=== PATIENT | male | born 1960 | race Caucasian/White ===

== ENCOUNTER 2017-11-13 02:17 | Emergency (ER) | payer MEDICARE, SELFPAY ==
[2017-11-13 02:22] VITALS: BP 118/84; PULSE 110; RESP 18; TEMP 36.7; O2SAT 94; BMI 23.7
--- NOTE | 2017-11-13 02:33 | XR_ITS ---
XR chest 2V HISTORY: ITS.REASON: shortness of air ORDERING PHYSICIAN: Xavier Tee MD PATIENT AGE: 57 years COMPARISON: 03/15/2013 FINDINGS: The cardiomediastinal silhouette and pulmonary vascularity are within normal limits. No lobar consolidation or collapse. There is a new 12 x 9 mm nodule in the right upper lobe overlying the second interspace. The remaining lungs are clear. No acute bony anomalies. Please present over the lower cervical spine IMPRESSION: New 12 mm right upper lobe nodule. Suggest CT scan of the chest for further evaluation.
[2017-11-13 02:53] LABS: POC Glucose,Bedside 241 mg/dL (70-110)
[2017-11-13 02:55] LABS: Basophils % 0.4 % (0.1-2.0); Eosinophils # 0.2 K/mm3 (0.0-0.4); Eosinophils % 1.6 % (0.1-12.0); Hematocrit 50.1 % (42.0-52.0); Hemoglobin 17.1 g/dL (14.1-18.0); Lymphocytes # 2.5 K/mm3 (0.7-4.5); Lymphocytes % 24.1 K/mm3 (10-50); Mean Corpuscular HGB Conc 34.2 g/dL (31.8-35.4); Mean Corpuscular Hemoglobin 31.9 pg (27.0-31.2); Mean Corpuscular Volume 93.4 fl (80-94); Mean Platelet Volume 9.3 fl (7.4-10.4); Monocytes # 0.6 K/mm3 (0.1-1.0); Monocytes % 5.9 % (1.7-9.3); Neutrophils # 7.2 K/mm3 (1.8-7.8); Platelet Count 123 K/mm3 (142-424); Red Blood Count 5.36 M/mm3 (4.60-6.20); Red Cell Distribution Width 14.6 % (11.5-17.5); White Blood Count 10.5 K/mm3 (4.8-10.8)
[2017-11-13 03:03] LABS: INR 1.14 (0.9-1.1); Prothrombin Time 12.3 seconds (9.4-11.8); Strep Scrn Group A (Rapid) Negative (Negative)
[2017-11-13 03:20] LABS: Alanine Aminotransferase 38 U/L (12-78); Albumin Level 3.8 gm/dL (3.4-5.0); Alkaline Phosphatase 156 U/L (46-116); Anion Gap 15.6 mEq/L (5-15); Aspartate Amino Transferase 11 U/L (15-37); Bilirubin,Total 0.7 mg/dL (0.2-1.0); Blood Urea Nitrogen 14 mg/dL (7-18); Calcium 9.1 mg/dL (8.5-10.1); Carbon Dioxide 24 mmol/L (21.0-32.0); Chloride 99 mmol/L (98-107); Creatine Kinase 56 U/L (39-308); Creatinine Clearance Estimated 113 mL/min (0-300); Creatinine,Serum 0.84 mg/dL (0.70-1.30); Estimated Glomerular Filt Rate 95 ml/min (>60); GFR (African American) 114 ML/MIN (>60); Glucose 247 mg/dL (74-106); Potassium 3.6 mmoL/L (3.5-5.1); Sodium 135 mmol/L (136-145); Total Protein,Serum 7.8 gm/dL (6.4-8.2); Troponin I < 0.02 ng/ml (0.00-0.06)
[2017-11-13 03:32] LABS: CKMB Relative Index 0.9 U/L (0-4.0); Creatine Kinase MB < 0.5 mg/ml (0.0-3.6)
[2017-11-13 03:47] VITALS: BP 131/80; PULSE 87; RESP 18; TEMP 36.7; O2SAT 93
--- NOTE | 2017-11-13 04:01 | HMH.EDSOB ---
ED Disposition Clinical Impression: Bronchitis Pharyngitis Qualifiers: Pharyngitis/tonsillitis etiology: unspecified etiology Qualified Code(s): J02.9 - Acute pharyngitis, unspecified Disposition: Home, Self-Care Condition on Discharge: Good Instructions: DI for Pharyngitis/Tonsillopharyngitis -- Adult Additional Instructions: see pcp for follow up Prescriptions: cephALEXin [Keflex 500mg Cap] 500 mg PO TID #21 cap Referrals: Jessika Frederick APRN [Primary Care Provider] - - Critical Care Critical Care Time: No Attestation: On 11/13/17, the high probability of a clinically significant, sudden or life threatening deterioration of the following system(s) required my full and direct attention, intervention and personal management. The time I documented below is in addition to time spent performing reported procedures but includes the following listed in this critical care notation. Medical Decision Making - Medical Records Medical records reviewed: Yes: I reviewed the patient's medical records. Vital Signs: 11/13/17 02:22 11/13/17 03:47 11/13/17 05:33 Temperature 98.0 F 98.1 F Temperature Source Oral Oral Pulse Rate [Right Radial] 110 H 87 83 Respiratory Rate 18 18 16 Blood Pressure [Right Arm] 118/84 131/80 108/66 Blood Pressure Mean [Right Arm] 95 97 80 Blood Pressure Source [Right Arm] Automatic Cuff Automatic Cuff Automatic Cuff Blood Pressure Position [Right Arm] Sitting Sitting Supine 02 Sat by Pulse Oximetry 94 L 93 L 91 L Oxygen Delivery Method Room Air Room Air Room Air - Lab Data Lab results reviewed: Yes: I reviewed the patient's lab results. Lab Results 11/13/17 02:30: WBC 10.5, RBC 5.36, Hgb 17.1, Hct 50.1, MCV 93.4, MCH 31.9 H, MCHC 34.2, RDW 14.6, Plt Count 123 L, MPV 9.3, Neut % (Auto) 68.0, Lymph % (Auto) 24.1, [place] % (Auto) 5.9, Eos % (Auto) 1.6, Baso % (Auto) 0.4, Neut # (Auto) 7.2, Lymph # (Auto) 2.5, [place] # (Auto) 0.6, Eos # (Auto) 0.2, Baso # (Auto) 0.0 11/13/17 02:30: PT 12.3 H, INR 1.14 H 11/13/17 02:30: Sodium 135 L, Potassium 3.6, Chloride 99, Carbon Dioxide 24, Anion Gap 15.6 H, BUN 14, Creatinine 0.84, Estimated Creat Clear 113, Estimated GFR 95, Est GFR ( Amer) 114, Glucose 247 H, Calcium 9.1, Total Bilirubin 0.7, AST 11 L, ALT 38, Alkaline Phosphatase 156 H, Total Creatine Kinase 56, CK-MB (CK-2) < 0.5, CK-MB (CK-2) Rel Index 0.9, Troponin I < 0.02, Total Protein 7.8, Albumin 3.8, Globulin 4.0 H, Albumin/Globulin Ratio 1.0 L 11/13/17 02:30: Group A Strep Rapid Negative 11/13/17 02:30: Influenza Type A Ag Negative, Influenza Type B Ag Negative 11/13/17 02:30: Lactic Acid 1.0 11/13/17 02:45: POC Glucose 241 Result diagrams: 11/13/17 02:30 11/13/17 02:30 Orders (Tests/Meds): ED MEDICATIONS Generic Name Dose Route Start Last Admin Trade Name Freq PRN Reason Stop Dose Admin Azithromycin 500 mg/ Sodium 250 mls @ 250 mls/hr 11/13/17 04:15 11/13/17 04:39 Chloride IV 11/27/17 04:14 250 mls/hr Q24H KENDY Administration Protocol Ceftriaxone Sodium 1 gm/ 50 mls @ 100 mls/hr 11/13/17 04:15 11/13/17 04:40 Sodium Chloride IV 11/27/17 04:14 100 mls/hr Q24H KENDY Administration Discontinued Medications Generic Name Dose Route Start Last Admin Trade Name Freq PRN Reason Stop Dose Admin Sodium Chloride 500 mls @ 999 mls/hr 11/13/17 03:30 11/13/17 03:20 Sod Chlor 0.9% 1000ml Bag IV 11/13/17 04:00 999 mls/hr .Q31M KENDY Administration Ketorolac Tromethamine 30 mg 11/13/17 04:12 11/13/17 04:39 Toradol 30mg/Ml Vial IV 11/13/17 04:13 30 mg ONCE ONE Administration Methylprednisolone Sodium Succinate 125 mg 11/13/17 04:13 11/13/17 04:39 Solu-Medrol 125mg/2ml Vial IV 11/13/17 04:14 125 mg ONCE ONE Administration ORDERS Category Date Time Status CT angio chest Stat Cat Scan 11/13/17 05:35 Stop Req Blood Culture Stat Micro 11/13/17 02:30 Received Sputum Culture & Gram Stain Stat Micro 11/13/17 02:48 Re
--- NOTE | 2017-11-13 04:10 | ED_ITS ---
ED Disposition Clinical Impression: Bronchitis Pharyngitis Qualifiers: Pharyngitis/tonsillitis etiology: unspecified etiology Qualified Code(s): J02.9 - Acute pharyngitis, unspecified Disposition: Home, Self-Care Condition on Discharge: Good Instructions: DI for Pharyngitis/Tonsillopharyngitis -- Adult Additional Instructions: see pcp for follow up Prescriptions: cephALEXin [Keflex 500mg Cap] 500 mg PO TID #21 cap Referrals: Jessika Frederick APRN [Primary Care Provider] - - Critical Care Critical Care Time: No Attestation: On 11/13/17, the high probability of a clinically significant, sudden or life threatening deterioration of the following system(s) required my full and direct attention, intervention and personal management. The time I documented below is in addition to time spent performing reported procedures but includes the following listed in this critical care notation. Medical Decision Making - Medical Records Medical records reviewed: Yes: I reviewed the patient's medical records. Vital Signs: 11/13/17 02:22 11/13/17 03:47 11/13/17 05:33 Temperature 98.0 F 98.1 F Temperature Source Oral Oral Pulse Rate [Right Radial] 110 H 87 83 Respiratory Rate 18 18 16 Blood Pressure [Right Arm] 118/84 131/80 108/66 Blood Pressure Mean [Right Arm] 95 97 80 Blood Pressure Source [Right Arm] Automatic Cuff Automatic Cuff Automatic Cuff Blood Pressure Position [Right Arm] Sitting Sitting Supine 02 Sat by Pulse Oximetry 94 L 93 L 91 L Oxygen Delivery Method Room Air Room Air Room Air - Lab Data Lab results reviewed: Yes: I reviewed the patient's lab results. Lab Results 11/13/17 02:30: WBC 10.5, RBC 5.36, Hgb 17.1, Hct 50.1, MCV 93.4, MCH 31.9 H, MCHC 34.2, RDW 14.6, Plt Count 123 L, MPV 9.3, Neut % (Auto) 68.0, Lymph % (Auto ) 24.1, [place] % (Auto) 5.9, Eos % (Auto) 1.6, Baso % (Auto) 0.4, Neut # (Auto) 7.2, Lymph # (Auto) 2.5, [place] # (Auto) 0.6, Eos # (Auto) 0.2, Baso # (Auto) 0.0 11/13/17 02:30: PT 12.3 H, INR 1.14 H 11/13/17 02:30: Sodium 135 L, Potassium 3.6, Chloride 99, Carbon Dioxide 24, Anion Gap 15.6 H, BUN 14, Creatinine 0.84, Estimated Creat Clear 113, Estimated GFR 95, Est GFR ( Amer) 114, Glucose 247 H, Calcium 9.1, Total Bilirubin 0.7, AST 11 L, ALT 38, Alkaline Phosphatase 156 H, Total Creatine Kinase 56, CK- MB (CK-2) < 0.5, CK-MB (CK-2) Rel Index 0.9, Troponin I < 0.02, Total Protein 7.8, Albumin 3.8, Globulin 4.0 H, Albumin/Globulin Ratio 1.0 L 11/13/17 02:30: Group A Strep Rapid Negative 11/13/17 02:30: Influenza Type A Ag Negative, Influenza Type B Ag Negative 11/13/17 02:30: Lactic Acid 1.0 11/13/17 02:45: POC Glucose 241 Result diagrams: 11/13/17 02:30 11/13/17 02:30 Orders (Tests/Meds): ED MEDICATIONS Generic Name Dose Route Start Last Admin Trade Name Freq PRN Reason Stop Dose Admin Azithromycin 500 mg/ Sodium 250 mls @ 250 mls/hr 11/13/17 04:15 11/13/17 04: 39 Chloride IV 11/27/17 04:14 250 mls/hr Q24H KENDY Administration Protocol Ceftriaxone Sodium 1 gm/ 50 mls @ 100 mls/hr 11/13/17 04:15 11/13/17 04:40 Sodium Chloride IV 11/27/17 04:14 100 mls/hr Q24H KENDY Administration Discontinued Medications Generic Name Dose Route Start Last Admin Trade Name Freq PRN Reason Stop Dose Admin Sodium Chloride 500 mls @ 999 mls/hr 11/13/17 03:30 11/13/17 03:20
[2017-11-13 05:33] VITALS: BP 108/66; PULSE 83; RESP 16; O2SAT 91
[2017-11-13 07:06] VITALS: BP 116/80; PULSE 70; RESP 18; TEMP 36.7; O2SAT 92
== END 2017-11-13 07:13 | disposition home or self-care (01) ==
PROVIDERS: Emergency Provider Emergency Medicine; Family Provider Nurse Practitioner; PCP Nurse Practitioner
DX: J40 Bronchitis, not specified as acute or chronic (principal); J02.9 Acute pharyngitis, unspecified; R06.02 Shortness of breath; R68.89 Other general symptoms and signs; E11.9 Type 2 diabetes mellitus without complications; Z79.4 Long term (current) use of insulin; Z79.899 Other long term (current) drug therapy; Z72.0 Tobacco use
CPT/HCPCS: 71046; 80053; 82550; 82553; 82962; 83605; 84484; 85025; 85610; 87040; 87070; 87077; 87184; 87205; 87275; 87276; 87430; 93005; 96365; 96367; 96375; 99283; J0456

== ENCOUNTER → 2017-11-26 13:50 | Outpatient (CLI) | payer MEDICARE, SELFPAY ==
[2017-11-26 14:09] LABS: Blood Urea Nitrogen 11 mg/dL (7-18); Estimated Glomerular Filt Rate 100 ml/min (>60); GFR (African American) 121 ML/MIN (>60)
--- NOTE | 2017-11-26 14:13 | CT_ITS ---
CT chest wo/w con HISTORY: Follow-up lung nodule, solitary pulmonary nodule chest x-ray ITS.REASON: RIGHT LUNG NODULE ORDERING PHYSICIAN: Jessika Frederick PATIENT AGE: 57 years TECHNIQUE: Axial images obtained. Sagittal and coronal reformatted images are also generated and reviewed. CONTRAST: 75ml Isovue 370 I.V. COMPARISON: Chest x-ray of 11/13/[address] scan of 01/02/2015 FINDINGS: Scattered small lymph nodes are present in the axilla and mediastinum which are not significantly changed. No dominant adenopathy. No mediastinal or hilar mass. No central obstructing lesions. There are moderate centrilobular emphysematous changes with scattered areas of pulmonary fibrosis.. There is a new 13 x 10 mm noncalcified nodule within the posterior segment of the right upper lobe. The margins are well-circumscribed. No cavitation or spiculation. No significant enhancement. Just posterior medial to this nodule is an additional opacity measuring 5 mm. This however may be due to a looping vessel. Inferior to the main nodule, there is an additional nodule measuring 5 mm which is also developed in the interval. The left lung is clear. No effusions or infiltrates. Upper abdominal images show splenomegaly at 14 cm. No bony destructive process evident. IMPRESSION: 1. There are at least 2 new right upper lobe nodules the largest at 13 x 10 mm corresponding to the radiographic abnormality. The nodule is well-circumscribed but noncalcified. Neoplasm is considered. An inflammatory or infectious nodule such as a granuloma is also a consideration. Consider PET/CT for further evaluation. This nodule is not amenable for safe percutaneous CT directed biopsy 2. Centrilobular emphysema
--- NOTE | 2017-11-26 14:27 | HMH.ITSHM ---
GABAPENTIN,TRAMADOLO TRAZADONE,ATORVASTATIN AMLODIPINE,COLCRYS,WARFARIN HUMALOG,TOUJEO
== END ==
PROVIDERS: Family Provider Nurse Practitioner; PCP Nurse Practitioner; Visit Provider Nurse Practitioner
DX: R91.1 Solitary pulmonary nodule (principal)
CPT/HCPCS: 36415; 71270; 82565; 84520; Q9967

== ENCOUNTER → 2018-06-25 15:45 | Outpatient (CLI) | payer BC, MEDICARE, SELFPAY ==
--- NOTE | 2018-06-25 15:47 | MR_ITS ---
MR hip RT wo con HISTORY: Right hip pain. ITS.REASON: TROCHANTERIC BURSITIS, RIGHT HIP ORDERING PHYSICIAN: Jessika Frederick PATIENT AGE: 57 years COMPARISON: 11/11/2016 TECHNIQUE: Routine multiplanar multiecho sequences performed without contrast. FINDINGS: No fracture or dislocation. No evidence of avascular process. No bony destructive process. Small amount fluid noted within the right hip joint slightly greater than the normal left side. Once again there is noted small area of increased T2 signal along the greater trochanter between the gluteus sahara and medius muscle as previously described. This is of questionable clinical significance but could be seen with trochanteric bursitis. No other significant anomalies are evident. IMPRESSION: 1. Small amount of fluid in the right hip joint slightly more prominent than on the left side. 2. Possible right-sided trochanteric bursitis not significantly changed
== END ==
PROVIDERS: Family Provider Nurse Practitioner; PCP Nurse Practitioner; Visit Provider Nurse Practitioner
DX: M70.61 Trochanteric bursitis, right hip (principal)
CPT/HCPCS: 73721

== ENCOUNTER → 2019-04-25 10:31 | Outpatient (CLI) | payer BC, MEDICARE, SELFPAY ==
--- NOTE | 2019-04-25 10:41 | CT_ITS ---
CT angio chest HISTORY: Shortness of breath, chest pain, recent surgery ITS.REASON: SOB, S/P SURGERY 2-3 WEEKS ,STENT IN LEGS ORDERING PHYSICIAN: Jessika Frederick APRN PATIENT AGE: 58 years COMPARISON: 11/26/2017 TECHNIQUE: Contrast Used:70ml Optiray 350 Axial images were obtained. Sagittal, and coronal reformatted images are also generated and reviewed. All CT scans at the facility use one or more dose reduction, viz: automated exposure control, ma/kV adjustment per patient size (including targeted exams where dose is matched to indication, i.e. head), or iterative reconstruction technique. FINDINGS: There is mild diffuse thickening of the esophagus throughout its length nonspecific and millimeters due to nondistention. Esophagitis is also a consideration. No mediastinal or hilar mass. No evidence of aortic aneurysm or dissection. Coronary artery calcifications are present. There is minimal thickening of the pericardium anteriorly No evidence of central pulmonary embolus. The peripheral pulmonary arteries are not well opacified. Centrilobular emphysema. A 10 mm noncalcified nodule present in the right upper lobe posteriorly unchanged. No new nodules are evident. No effusions or infiltrates. Bone plate is present in the lower cervical spine anteriorly. No acute bony findings. Upper abdominal images show splenomegaly IMPRESSION: 1. No evidence of pulmonary embolus. 2. Coronary artery calcifications, centrilobular emphysema, no change right upper lobe nodule 3. Splenomegaly
[2019-04-25 10:56] LABS: Blood Urea Nitrogen 14 mg/dL (7-18); Creatinine,Serum 1.45 mg/dL (0.70-1.30); Estimated Glomerular Filt Rate 50 ml/min (>60); GFR (African American) 61 ML/MIN (>60)
--- NOTE | 2019-04-25 13:11 | HMH.ITSHM ---
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 [] gabapentin trazodone atorvastatin tramadol
== END ==
PROVIDERS: PCP Nurse Practitioner; Visit Provider Nurse Practitioner
DX: Z09 Encounter for follow-up examination after completed treatment for conditions other than malignant neoplasm (principal); R06.02 Shortness of breath
CPT/HCPCS: 36415; 71275; 82565; 84520; Q9967

== ENCOUNTER → 2019-05-04 13:33 | Outpatient (CLI) | payer BC, MEDICARE, SELFPAY ==
[2019-05-04 14:30] LABS: Basophils % 0.6 % (0.1-2.0); Eosinophils # 0.1 K/mm3 (0.0-0.4); Eosinophils % 1.8 % (0.1-12.0); Hematocrit 39.2 % (42.0-52.0); Hemoglobin 12.5 g/dL (14.1-18.0); Lymphocytes # 1.5 K/mm3 (0.7-4.5); Lymphocytes % 22.9 % (10-50); Mean Corpuscular HGB Conc 31.8 g/dL (31.8-35.4); Mean Corpuscular Hemoglobin 29.3 pg (27.0-31.2); Mean Corpuscular Volume 92.2 fl (80-94); Mean Platelet Volume 8.2 fl (7.4-10.4); Monocytes # 0.3 K/mm3 (0.1-1.0); Monocytes % 4.3 % (1.7-9.3); Neutrophils # 4.7 K/mm3 (1.8-7.8); Neutrophils % 70.4 % (37.0-80.0); Platelet Count 252 K/mm3 (142-424); Red Blood Count 4.26 M/mm3 (4.60-6.20); Red Cell Distribution Width 17.1 % (11.5-17.5); White Blood Count 6.6 K/mm3 (4.8-10.8)
[2019-05-04 15:23] LABS: Hemoglobin A1C 6.2 % (0.0-7.0)
[2019-05-04 15:41] LABS: Alanine Aminotransferase 56 U/L (12-78); Albumin Level 3.6 gm/dL (3.4-5.0); Albumin/Globulin Ratio 0.8 (1.1-1.8); Alkaline Phosphatase 183 U/L (46-116); Anion Gap 15.1 mEq/L (5-15); Aspartate Amino Transferase 22 U/L (15-37); Bilirubin,Total 0.7 mg/dL (0.2-1.0); Blood Urea Nitrogen 11 mg/dL (7-18); Calcium 9.7 mg/dL (8.5-10.1); Carbon Dioxide 27 mmol/L (21.0-32.0); Chloride 97 mmol/L (98-107); Cholesterol 119 mg/dL (140-200); Creatinine,Serum 1.23 mg/dL (0.70-1.30); Estimated Glomerular Filt Rate 61 ml/min (>60); GFR (African American) 73 ML/MIN (>60); Globulin 4.5 gm/dl (1.3-3.2); Glucose 278 mg/dL (74-106); HDL Cholesterol 30 mg/dL (27-67); LDL Cholesterol 19 mg/dL (0-130); Potassium 4.1 mmoL/L (3.5-5.1); Sodium 135 mmol/L (136-145); T4 (Thyroxine) 11.2 ug/dl (4.7-13.3); Thyroid Stimulating Hormone 2.26 uIU/ml (0.358-3.740); Total Protein,Serum 8.1 gm/dL (6.4-8.2); Triglycerides 350 mg/dL (30-200); VLDL Cholesterol 70 mg/dL (0-40)
[2019-05-05 10:16] LABS: Creatinine, Urine 112.2 mg/dL (Not Estab.); Microalbumin, Urine 62.2 ug/mL (Not Estab.)
[2019-05-06 09:45] LABS: PSA, Free 0.44 ng/mL; Prostate Specific Ag 2.4 ng/mL (0.0-4.0); Vitamin D 25 Hydroxy 30.4 ng/mL (30.0-100.0)
== END ==
PROVIDERS: Visit Provider Physician Assistant
DX: R53.83 Other fatigue; E11.40 Type 2 diabetes mellitus with diabetic neuropathy, unspecified; Z79.899 Other long term (current) drug therapy; Z79.4 Long term (current) use of insulin; Z79.84 Long term (current) use of oral hypoglycemic drugs
CPT/HCPCS: 80053; 80061; 82043; 82570; 82652; 83036; 84153; 84154; 84436; 84443; 85025

== ENCOUNTER → 2019-09-16 09:56 | Outpatient (CLI) | payer BC, MEDICARE, SELFPAY ==
[2019-09-16 11:29] LABS: INR 5.96 (0.9-1.1); Prothrombin Time 56.9 seconds (9.4-11.8)
== END ==
PROVIDERS: Visit Provider Internal Medicine
DX: R79.1 Abnormal coagulation profile (principal)
CPT/HCPCS: 36415; 85610

== ENCOUNTER → 2019-09-19 09:32 | Outpatient (CLI) | payer BC, MEDICARE, SELFPAY ==
[2019-09-19 10:21] LABS: INR 1.75 (0.9-1.1); Prothrombin Time 17.7 seconds (9.4-11.8)
== END ==
PROVIDERS: Internal Medicine; Visit Provider Physician Assistant
DX: Z51.81 Encounter for therapeutic drug level monitoring (principal); Z79.01 Long term (current) use of anticoagulants
CPT/HCPCS: 36415; 85610

== ENCOUNTER 2020-01-03 19:22 | Emergency (ER) | payer BC, MEDICARE, SELFPAY ==
[2020-01-03] VITALS (8 sets, daily range): BP systolic 114–174; BP diastolic 82–118; PULSE 102–114; RESP 22–28; TEMP 36.8; O2SAT 95–100; BMI 19.1
--- NOTE | 2020-01-03 19:30 | PC.NURSE ---
RT at the bedside for abg
[2020-01-03 19:35] LABS: ABG Base Excess -2.2 mmol/L (-2.4-2.3); ABG HCO3 20.4 mmhg (22.0-26.0); ABG Oxygen Saturation 91 % (90-100); ABG PCO2 24.3 mmhg (35.0-45.0); ABG PH 7.54 mmol/L (7.35-7.45); ABG PO2 57.3 mmhg (80-100); ABG TCO2 21.1 mmhg (23-27); Allen's Test Y; Oxygen R/A %
[2020-01-03 19:36] LABS: Source R/R
--- NOTE | 2020-01-03 19:40 | HMH.EDGENADL ---
ED Disposition Condition on Discharge: Fair - Critical Care Critical Care Time: No <Abdulkadir Gallegos - Last Filed: 01/03/20 19:51> <Xavier Tee - Last Filed: 01/03/20 21:37> Clinical Impression: Shortness of breath, ESRD (end stage renal disease) on dialysis CHF (congestive heart failure) Qualifiers: Heart failure type: unspecified Heart failure chronicity: acute on chronic Qualified Code(s): I50.9 - Heart failure, unspecified Disposition: Xfer Short-Term Hosp Referrals: Provider,Referral, MD [Primary Care Provider] - Attestation: On 01/03/20, the high probability of a clinically significant, sudden or life threatening deterioration of the following system(s) required my full and direct attention, intervention and personal management. The time I documented below is in addition to time spent performing reported procedures but includes the following listed in this critical care notation. Medical Decision Making - Long Inquiry Pt receiving controlled substance: No <RosyAbdulkadir - Last Filed: 01/03/20 19:51> - Lab Data Lab results reviewed: Yes: I reviewed the patient's lab results. Result diagrams: 01/03/20 19:46 01/03/20 19:46 - Radiology Data #1 Image(s): Chest Image Reviewed: Yes I reviewed the patient's radiology image Preliminary Findings: Abnormal (chf ) - ECG Data Tracing #1 Arrhythmias present: sinus tach Ischemic changes: non-specific ST-T wave changes ECG compared to prior tracings: there are no significant changes - Physician Consults Physician Consulted: -ed Reason -: Transfer to another facilty <Xavier Tee - Last Filed: 01/03/20 21:37> Vital Signs: 01/03/20 19:32 01/03/20 20:05 01/03/20 20:17 Temperature 98.2 F Temperature Source Oral Pulse Rate [Right] 114 H 106 H 111 H Respiratory Rate 28 H 24 24 Blood Pressure [Right Arm] 166/118 H 160/112 H 159/106 H Blood Pressure Mean [Right Arm] 134 128 123 Blood Pressure Source [Right Arm] Automatic Cuff Blood Pressure Position [Right Arm] Sitting 02 Sat by Pulse Oximetry 95 99 100 Oxygen Delivery Method Room Air Nasal Cannula Nasal Cannula Oxygen Flow Rate (LPM) 3 3 01/03/20 20:26 01/03/20 21:05 01/03/20 21:33 Temperature Temperature Source Pulse Rate [Right] 111 H 102 H 104 H Respiratory Rate 24 24 24 Blood Pressure [Right Arm] 159/82 H 165/108 H 174/110 H Blood Pressure Mean [Right Arm] 107 127 131 Blood Pressure Source [Right Arm] Blood Pressure Position [Right Arm] 02 Sat by Pulse Oximetry 100 100 100 Oxygen Delivery Method Nasal Cannula Nasal Cannula Nasal Cannula Oxygen Flow Rate (LPM) 3 3 3 - Lab Data Lab Results 01/03/20 19:34: Specimen Source R/r, O2 % R/a, ABG pH 7.54 H, ABG pCO2 24.3 L, ABG pO2 57.3 L, ABG HCO3 20.4 L, ABG Total CO2 21.1 L, ABG O2 Saturation 91, ABG Base Excess -2.2, Tommy Test Y 01/03/20 19:46: Troponin I 0.05 H 01/03/20 19:46: WBC 6.4, RBC 3.19 L, Hgb 10.7 L, Hct 30.7 L, MCV 96.2 H, MCH 33.6 H, MCHC 34.9, RDW 14.3, Plt Count 214, MPV 8.5, Neut % (Auto) 68.1, Lymph % (Auto) 25.1, [place] % (Auto) 5.1, Eos % (Auto) 1.1, Baso % (Auto) 0.6, Neut # (Auto) 4.4, Lymph # (Auto) 1.6, [place] # (Auto) 0.3, Eos # (Auto) 0.1, Baso # (Auto) 0.0 01/03/20 19:46: Sodium 130 L, Potassium 4.5, Chloride 88 L, Carbon Dioxide 22, Anion Gap 24.5 H, BUN 46 H, Creatinine 7.00 H, Estimated Creat Clear 11, Estimated GFR 8 L*, Est GFR ( Amer) 10 L*, Glucose 156 H, Calcium 8.1 L, Total Bilirubin 0.6, AST 32, ALT 46, Alkaline Phosphatase 115, Total Protein 7.4, Albumin 4.1, Globulin 3.3 H, Albumin/Globulin Ratio 1.2 01/03/20 21:00: Influenza Type A Ag Negative, Influenza Type B Ag Negative Orders (Tests/Meds): ED MEDICATIONS Generic Name Dose Route Start Last Admin Trade Name Freq PRN Reason Stop Dose Admin Sodium Chloride 3 ml 01/03/20 19:46 Sodium Chloride 3% 15ml Neb IH 02/02/20 19:45 ONCE PRN INDUCE SPUTUM COLLECTION Discontinued Medicati
--- NOTE | 2020-01-03 19:45 | XR_ITS ---
PROCEDURE: XR CHEST PORTABLE CLINICAL HISTORY: soa, prod cough COMPARISON: AGCHEST CT angio chest from 04/25/2019 XR CHEST 2V from 09/21/2019 XR CHEST PORTABLE from 09/29/2019 XR CHEST 2V from 10/29/2019 FINDINGS: Right IJ Vas-Cath is present with tip in the region the SVC. There is cardiomegaly with pulmonary venous congestion consistent with CHF or plasma volume overload. There is increased density in the the lower lobes which may be due to superimposed pneumonia. IMPRESSION: CHF or plasma volume overload with airspace disease in the lung bases right greater than left which may be due to pneumonia Dictated by: Tommy Powell MD 01/03/2020 21:00 Electronically signed by Tommy Powell MD in [facility] 01/03/2020 21:00
--- NOTE | 2020-01-03 19:48 | ECG_ITS ---
APPROVED REPORT Exam: Resting ECG HR:107 bpm ECG Measurements Heart Rate 107 AXES NH 126 P 38 QRSd 86 QRS 72 QT 356 T 157 QTc 475 <Conclusion> Sinus tachycardia poor r wave progression Abnormal ECG Electronically signed by : Fernando Estrella, 01/04/2020 17:16:38
[2020-01-03 19:59] LABS: Basophils % 0.6 % (0.1-2.0); Chloride 88 mmol/L (98-107); Eosinophils # 0.1 K/mm3 (0.0-0.4); Eosinophils % 1.1 % (0.1-12.0); Hematocrit 30.7 % (42.0-52.0); Hemoglobin 10.7 g/dL (14.1-18.0); Lymphocytes # 1.6 K/mm3 (0.7-4.5); Lymphocytes % 25.1 % (10-50); Mean Corpuscular HGB Conc 34.9 g/dL (31.8-35.4); Mean Corpuscular Hemoglobin 33.6 pg (27.0-31.2); Mean Corpuscular Volume 96.2 fl (80-94); Mean Platelet Volume 8.5 fl (7.4-10.4); Monocytes # 0.3 K/mm3 (0.1-1.0); Monocytes % 5.1 % (1.7-9.3); Neutrophils # 4.4 K/mm3 (1.8-7.8); Neutrophils % 68.1 % (37.0-80.0); Platelet Count 214 K/mm3 (142-424); Potassium 4.5 mmoL/L (3.5-5.1); Red Blood Count 3.19 M/mm3 (4.60-6.20); Red Cell Distribution Width 14.3 % (11.5-17.5); Sodium 130 mmol/L (136-145); White Blood Count 6.4 K/mm3 (4.8-10.8)
[2020-01-03 20:02] LABS: Alanine Aminotransferase 46 U/L (12-78); Albumin Level 4.1 g/dl (3.5-5.0); Albumin/Globulin Ratio 1.2 (1.1-1.8); Alkaline Phosphatase 115 U/L (38-126); Anion Gap 24.5 mEq/L (5-15); Aspartate Amino Transferase 32 U/L (17-59); Bilirubin,Total 0.6 mg/dl (0.2-1.3); Blood Urea Nitrogen 46 mg/dl (9-20); Carbon Dioxide 22 mmol/L (22.0-30.0); Creatinine Clearance Estimated 11 mL/min (50-200); Estimated Glomerular Filt Rate 8 ml/min (>60); GFR (African American) 10 ML/MIN (>60); Globulin 3.3 g/dL (1.3-3.2); Total Protein,Serum 7.4 g/dl (6.3-8.2)
[2020-01-03 20:03] LABS: Calcium 8.1 mg/dl (8.4-10.2); Glucose 156 mg/dl (74-100)
[2020-01-03 20:14] LABS: Troponin I 0.05 ng/ml (0.00-0.034)
--- NOTE | 2020-01-03 21:43 | PC.NURSE ---
RN calling report to [facility] at this time
--- NOTE | 2020-01-03 21:45 | PC.NURSE ---
with pt permission this nurse went out to the parking lot and updated the pts on his condition and the plan to transfer him to for further treatment.
== END 2020-01-03 22:14 | disposition short-term general hospital (02) ==
PROVIDERS: Emergency Medicine; Emergency Provider Emergency Medicine
DX: R06.02 Shortness of breath (principal); I50.9 Heart failure, unspecified; N18.6 End stage renal disease; Z99.2 Dependence on renal dialysis; I10 Essential (primary) hypertension; E78.5 Hyperlipidemia, unspecified; Z85.118 Personal history of other malignant neoplasm of bronchus and lung; E11.9 Type 2 diabetes mellitus without complications; Z79.4 Long term (current) use of insulin; Z99.81 Dependence on supplemental oxygen; F17.210 Nicotine dependence, cigarettes, uncomplicated; J44.9 Chronic obstructive pulmonary disease, unspecified
CPT/HCPCS: 71045; 80053; 82803; 84484; 85025; 87070; 87205; 87275; 87276; 93005; 96374; 99285

== ENCOUNTER 2020-01-31 21:12 | Emergency (ER) | payer BC, MEDICARE, SELFPAY ==
[2020-01-31 21:21] VITALS: BP 153/100; PULSE 104; RESP 18; TEMP 36.7; O2SAT 100; BMI 17.5
--- NOTE | 2020-01-31 21:21 | XR_ITS ---
PROCEDURE: XR CHEST PORTABLE CLINICAL HISTORY: soa Shortness of air, dialysis patient COMPARISON: AGCHEST CT angio chest from 04/25/2019 XR CHEST PORTABLE from 09/29/2019 XR CHEST 2V from 10/29/2019 XR CHEST PORTABLE from 01/03/2020 FINDINGS: Borderline cardiomegaly. There is pulmonary venous congestion and interstitial edema consistent with CHF or plasma volume overload. There is a right IJ Vas-Cath present. IMPRESSION: CHF or plasma volume overload with interstitial edema Dictated by: Tommy Powell MD 01/31/2020 22:01 Electronically signed by Tommy Powell MD in [facility] 01/31/2020 22:01
--- NOTE | 2020-01-31 21:21 | ECG_ITS ---
APPROVED REPORT Exam: Resting ECG HR:106 bpm ECG Measurements Heart Rate 106 AXES CO 136 P 56 QRSd 86 QRS 76 QT 386 T 139 QTc 512 <Conclusion> Sinus tachycardia ST & T wave abnormality, consider lateral ischemia Abnormal ECG Electronically signed by : Fernando Estrella, 02/01/2020 08:26:12
[2020-01-31 21:33] LABS: ABG Base Excess -1.3 mmol/L (-2.4-2.3); ABG HCO3 19.8 mmhg (22.0-26.0); ABG Oxygen Saturation 97 % (90-100); ABG PO2 77.6 mmhg (80-100); ABG TCO2 20.4 mmhg (23-27); Allen's Test Y; Oxygen R/A %; Source R/R
[2020-01-31 21:34] LABS: ABG PCO2 19.4 mmhg (35.0-45.0); ABG PH 7.63 mmol/L (7.35-7.45)
[2020-01-31 21:36] LABS: Basophils % 0.3 % (0.1-2.0); Eosinophils # 0.1 K/mm3 (0.0-0.4); Hematocrit 24.6 % (42.0-52.0); Lymphocytes % 29.6 % (10-50); Mean Corpuscular HGB Conc 32.2 g/dL (31.8-35.4); Mean Corpuscular Hemoglobin 33.6 pg (27.0-31.2); Mean Corpuscular Volume 104.3 fl (80-94); Mean Platelet Volume 8.8 fl (7.4-10.4); Monocytes # 0.3 K/mm3 (0.1-1.0); Neutrophils # 4.4 K/mm3 (1.8-7.8); Neutrophils % 64.1 % (37.0-80.0); Platelet Count 183 K/mm3 (142-424); Red Blood Count 2.36 M/mm3 (4.60-6.20); Red Cell Distribution Width 16.9 % (11.5-17.5); White Blood Count 6.9 K/mm3 (4.8-10.8)
[2020-01-31 21:37] LABS: Chloride 90 mmol/L (98-107); Potassium 4.5 mmoL/L (3.5-5.1); Sodium 131 mmol/L (136-145)
[2020-01-31 21:40] LABS: Alanine Aminotransferase 47 U/L (12-78); Albumin Level 4.3 g/dl (3.5-5.0); Albumin/Globulin Ratio 1.4 (1.1-1.8); Alkaline Phosphatase 145 U/L (38-126); Anion Gap 23.5 mEq/L (5-15); Aspartate Amino Transferase 30 U/L (17-59); Blood Urea Nitrogen 33 mg/dl (9-20); Carbon Dioxide 22 mmol/L (22.0-30.0); Creatinine Clearance Estimated 9 mL/min (50-200); Estimated Glomerular Filt Rate 8 ml/min (>60); GFR (African American) 9 ML/MIN (>60); Globulin 3.1 g/dL (1.3-3.2); Total Protein,Serum 7.4 g/dl (6.3-8.2)
[2020-01-31 21:41] LABS: Calcium 7.7 mg/dl (8.4-10.2); Glucose 161 mg/dl (74-100)
[2020-01-31 21:44] LABS: Hemoglobin 7.9 g/dL (14.1-18.0)
--- NOTE | 2020-01-31 21:45 | HMH.EDSOB ---
ED Disposition Clinical Impression: ESRD (end stage renal disease) on dialysis CHF (congestive heart failure) Qualifiers: Heart failure type: unspecified Heart failure chronicity: acute on chronic Qualified Code(s): I50.9 - Heart failure, unspecified Disposition: Xfer Short-Term Hosp Condition on Discharge: Good Referrals: Halina Desir PA [Primary Care Provider] - - Critical Care Critical Care Time: No Attestation: On 01/31/20, the high probability of a clinically significant, sudden or life threatening deterioration of the following system(s) required my full and direct attention, intervention and personal management. The time I documented below is in addition to time spent performing reported procedures but includes the following listed in this critical care notation. Medical Decision Making - Medical Records Medical records reviewed: Yes: I reviewed the patient's medical records. - Long Inquiry Pt receiving controlled substance: No Vital Signs: 01/31/20 21:21 01/31/20 22:00 Temperature 98.1 F Temperature Source Oral Pulse Rate [Right Brachial] 104 H 99 H Respiratory Rate 18 24 Blood Pressure [Right Arm] 153/100 H 149/99 H Blood Pressure Mean [Right Arm] 117 115 Blood Pressure Source [Right Arm] Automatic Cuff Blood Pressure Position [Right Arm] Sitting 02 Sat by Pulse Oximetry 100 100 Oxygen Delivery Method Room Air - Lab Data Lab results reviewed: Yes: I reviewed the patient's lab results. Lab Results 01/31/20 21:28: WBC 6.9, RBC 2.36 L, Hgb 7.9 L*, Hct 24.6 L, MCV 104.3 H, MCH 33.6 H, MCHC 32.2, RDW 16.9, Plt Count 183, MPV 8.8, Neut % (Auto) 64.1, Lymph % (Auto) 29.6, [place] % (Auto) 5.0, Eos % (Auto) 1.0, Baso % (Auto) 0.3, Neut # (Auto) 4.4, Lymph # (Auto) 2.0, [place] # (Auto) 0.3, Eos # (Auto) 0.1, Baso # (Auto) 0.0 01/31/20 21:28: Sodium 131 L, Potassium 4.5, Chloride 90 L, Carbon Dioxide 22, Anion Gap 23.5 H, BUN 33 H, Creatinine 7.50 H, Estimated Creat Clear 9, Estimated GFR 8 L*, Est GFR ( Amer) 9 L*, Glucose 161 H, Calcium 7.7 L, Total Bilirubin 1.0, AST 30, ALT 47, Alkaline Phosphatase 145 H, Troponin I 0.04 H, Total Protein 7.4, Albumin 4.3, Globulin 3.1, Albumin/Globulin Ratio 1.4 01/31/20 21:32: Specimen Source R/r, O2 % R/a, ABG pH 7.63 H*, ABG pCO2 19.4 L, ABG pO2 77.6 L, ABG HCO3 19.8 L, ABG Total CO2 20.4 L, ABG O2 Saturation 97, ABG Base Excess -1.3, Tommy Test Y Result diagrams: 01/31/20 21:28 01/31/20 21:28 Orders (Tests/Meds): ED MEDICATIONS Discontinued Medications Generic Name Dose Route Start Last Admin Trade Name Freq PRN Reason Stop Dose Admin Morphine Sulfate 4 mg 01/31/20 22:02 01/31/20 22:05 Morphine 4mg/Ml Syringe IV 01/31/20 22:03 4 mg ONCE ONE Administration Ondansetron HCl 4 mg 01/31/20 22:02 01/31/20 22:05 Zofran 4mg/2ml Vial IV 01/31/20 22:03 4 mg ONCE ONE Administration ORDERS Category Date Time Status BNP [Brain Natriuretic Peptide] Stat Lab 01/31/20 21:25 Received Troponin I Q3H Lab 02/01/20 00:45 Ordered Troponin I Q3H Lab 02/01/20 03:45 Ordered Arterial Blood Gas Stat RT 01/31/20 21:23 Ordered - Radiology Data #1 Image(s): Chest Image Reviewed: Yes I reviewed the patient's radiology image Preliminary Findings: Abnormal (cxr ) - ECG Data Tracing #1 Arrhythmias present: sinus tach Ischemic changes: non-specific ST-T wave changes - Physician Consults Physician Consulted: - ed- dr louise Reason -: Transfer to another facilty - Reevaluation(s) Time: 22:30 Reevaluation #1: improved Medical Decision Narrative: needs as pt is dialysis pt with vol overload Resp/SOB HPI - General Chief Complaint: Shortness of Breath/Dyspnea Stated Complaint: SOB Time Seen by Provider: 01/31/20 21:25 Mode of Arrival: Wheelchair Source of Information: Patient, Spouse, Medical Record Limitations: No Limitations Description of Symptoms (Recalled from ER Triage Doc. b
[2020-01-31 21:52] LABS: Troponin I 0.04 ng/ml (0.00-0.034)
[2020-01-31 22:00] VITALS: BP 149/99; PULSE 99; RESP 24; O2SAT 100
--- NOTE | 2020-01-31 22:01 | PC.NURSE ---
Pt c/o soa despite SAT 100%. MD at the bedside evaluating pt at this time
[2020-01-31 22:51] VITALS: BP 148/96; PULSE 95; RESP 17; TEMP 36.7; O2SAT 98
[2020-01-31 23:41] LABS: NT Pro Brain Natriuretic Pep. 237000 pg/mL (0-125)
== END 2020-01-31 22:53 | disposition short-term general hospital (02) ==
PROVIDERS: Emergency Provider Emergency Medicine; PCP Physician Assistant
DX: N18.6 End stage renal disease (principal); Z99.2 Dependence on renal dialysis; I50.9 Heart failure, unspecified; E11.9 Type 2 diabetes mellitus without complications; Z79.4 Long term (current) use of insulin; J44.9 Chronic obstructive pulmonary disease, unspecified; E78.5 Hyperlipidemia, unspecified; I10 Essential (primary) hypertension; F17.210 Nicotine dependence, cigarettes, uncomplicated; Z79.899 Other long term (current) drug therapy; Z90.49 Acquired absence of other specified parts of digestive tract
CPT/HCPCS: 71045; 80053; 82803; 83880; 84484; 85025; 93005; 96374; 96375; 99284; J2405

== ENCOUNTER 2020-02-07 18:47 | Emergency (ER) | payer BC, MEDICARE, SELFPAY ==
[2020-02-07 18:48] VITALS: BP 138/86; PULSE 90; RESP 22; TEMP 36.7; O2SAT 100; BMI 19.1; BMI 19.2
--- NOTE | 2020-02-07 18:49 | ECG_ITS ---
APPROVED REPORT Exam: Resting ECG HR:95 bpm ECG Measurements Heart Rate 95 AXES MN 130 P 48 QRSd 92 QRS 72 QT 416 T 153 QTc 522 <Conclusion> Normal sinus rhythm with sinus arrhythmia Moderate voltage criteria for LVH, may be normal variant ST & T wave abnormality, consider lateral ischemia Prolonged QT Abnormal ECG Electronically signed by : Sen Rodríguez, 02/08/2020 10:53:00
--- NOTE | 2020-02-07 18:49 | XR_ITS ---
PROCEDURE: XR CHEST PORTABLE CLINICAL HISTORY: SOA COMPARISON: CXR1 CHEST-PORTABLE from 03/15/[address] angio chest from 04/25/2019 XR CHEST 2V from 10/29/2019 XR CHEST PORTABLE from 01/03/2020 XR CHEST PORTABLE from 01/31/2020 FINDINGS: Right IJ Vas-Cath remains in place with the tip in the region the SVC. There is persistent prominence of the interstitium with some pulmonary edema in the right mid to lower lung zone consistent with CHF or plasma volume overload. Heart size however is only mildly prominent. Suspect small right pleural effusion. Prior lower cervical spine surgery. IMPRESSION: CHF or plasma volume overload with interstitial edema and some pulmonary edema in the right lower lobe overall not significantly changed Dictated by: Tommy Powell MD 02/08/2020 08:24 Electronically signed by Tommy Powell MD in [facility] 02/08/2020 08:24
--- NOTE | 2020-02-07 18:57 | PC.NURSE ---
PT VERY ANXIOUS MEDS ORDERED
[2020-02-07 19:03] LABS: Basophils % 0.6 % (0.1-2.0); Eosinophils # 0.1 K/mm3 (0.0-0.4); Eosinophils % 1.8 % (0.1-12.0); Hematocrit 24.7 % (42.0-52.0); Hemoglobin 8.4 g/dL (14.1-18.0); Lymphocytes # 1.3 K/mm3 (0.7-4.5); Lymphocytes % 26.6 % (10-50); Mean Corpuscular HGB Conc 33.8 g/dL (31.8-35.4); Mean Corpuscular Hemoglobin 34.6 pg (27.0-31.2); Mean Corpuscular Volume 102.3 fl (80-94); Mean Platelet Volume 8.6 fl (7.4-10.4); Monocytes # 0.3 K/mm3 (0.1-1.0); Monocytes % 5.3 % (1.7-9.3); Neutrophils # 3.3 K/mm3 (1.8-7.8); Neutrophils % 65.8 % (37.0-80.0); Platelet Count 213 K/mm3 (142-424); Red Blood Count 2.42 M/mm3 (4.60-6.20); Red Cell Distribution Width 17.8 % (11.5-17.5); White Blood Count 5.1 K/mm3 (4.8-10.8)
--- NOTE | 2020-02-07 19:05 | PC.NURSE ---
PT CONTINUES TO BE VERY ANXIOUS BUT THE FIRST DOSE OF ATIVAN HAS HELPED SOME MORE MEDS ORDERED
--- NOTE | 2020-02-07 19:31 | HMH.EDSOB ---
ED Disposition Clinical Impression: Intractable hiccups Disposition: Home, Self-Care Condition on Discharge: Good Instructions: DI for Shortness of Breath, DI for Hiccups Prescriptions: Chlorpromazine HCl [Thorazine 25mg tablet] 25 mg PO TID 10 Days #30 tab Transmission Status: Pending to [facility] Referrals: Halina Desir PA [Primary Care Provider] - - Critical Care Critical Care Time: No Attestation: On 02/07/20, the high probability of a clinically significant, sudden or life threatening deterioration of the following system(s) required my full and direct attention, intervention and personal management. The time I documented below is in addition to time spent performing reported procedures but includes the following listed in this critical care notation. Medical Decision Making - Medical Records Medical records reviewed: Yes: I reviewed the patient's medical records. - Long Inquiry Pt receiving controlled substance: No Vital Signs: 02/07/20 18:48 Temperature 98.1 F Temperature Source Oral Pulse Rate [Radial] 90 Respiratory Rate 22 Blood Pressure [Right Arm] 138/86 Blood Pressure Mean [Right Arm] 103 Blood Pressure Source [Right Arm] Automatic Cuff Blood Pressure Position [Right Arm] Sitting 02 Sat by Pulse Oximetry 100 Oxygen Delivery Method Nasal Cannula Oxygen Flow Rate (LPM) 3 - Lab Data Lab results reviewed: Yes: I reviewed the patient's lab results. Lab Results 02/07/20 18:50: WBC 5.1, RBC 2.42 L, Hgb 8.4 L, Hct 24.7 L, MCV 102.3 H, MCH 34.6 H, MCHC 33.8, RDW 17.8 H, Plt Count 213, MPV 8.6, Neut % (Auto) 65.8, Lymph % (Auto) 26.6, [place] % (Auto) 5.3, Eos % (Auto) 1.8, Baso % (Auto) 0.6, Neut # (Auto) 3.3, Lymph # (Auto) 1.3, [place] # (Auto) 0.3, Eos # (Auto) 0.1, Baso # (Auto) 0.0 Result diagrams: 02/07/20 18:50 Orders (Tests/Meds): ED MEDICATIONS Generic Name Dose Route Start Last Admin Trade Name Freq PRN Reason Stop Dose Admin Sodium Chloride 10 ml 02/07/20 18:57 Sodium Chloride 0.9% 10ml Vial IV 03/08/20 18:56 NEEDED PRN to Dilute Lorazepam inj Sodium Chloride 10 ml 02/07/20 19:05 Sodium Chloride 0.9% 10ml Vial IV 03/08/20 19:04 NEEDED PRN to Dilute Lorazepam inj Discontinued Medications Generic Name Dose Route Start Last Admin Trade Name Giancarloq PRN Reason Stop Dose Admin Lorazepam 1 mg 02/07/20 18:57 02/07/20 18:58 Ativan 2mg/Ml Vial IV 02/07/20 18:58 1 mg ONCE ONE Administration Lorazepam 1 mg 02/07/20 19:05 02/07/20 19:06 Ativan 2mg/Ml Vial IV 02/07/20 19:06 1 mg ONCE ONE Administration ORDERS Category Date Time Status XR chest portable Stat Exams 02/07/20 18:49 Taken Basic Metabolic Panel Stat Lab 02/07/20 18:50 Received Lactic Acid Stat Lab 02/07/20 18:50 Received Troponin I Q3H Lab 02/07/20 22:00 Ordered Troponin I Q3H Lab 02/08/20 01:00 Ordered Troponin I Stat Lab 02/07/20 18:50 Received Blood Culture Stat Micro 02/07/20 18:50 Received Resp/SOB HPI - General Chief Complaint: Shortness of Breath/Dyspnea Stated Complaint: SOA Time Seen by Provider: 02/07/20 19:31 Mode of Arrival: EMS Source of Information: Patient Limitations: No Limitations Description of Symptoms (Recalled from ER Triage Doc. by RN): Complaint of sudden onset of SOA that started approx 1 hour ago. - History of Present Illness 59-year-old gentleman presents the ED with an acute shortness of breath. He had acute shortness of breath right after dialysis today however here in the ED he was very anxious and he was given some Ativan and his shortness of breath went away right away and he is much more comfortable the only problem is the adrian does have intractable hiccups. Otherwise patient denies any recent fever shakes or chills. Patient denies any chest pain. Patient denies any cough. Patient denies any headache. Patient denies any general malaise. Patient denies any arth
[2020-02-07 19:44] LABS: Chloride 88 mmol/L (98-107); Sodium 130 mmol/L (136-145)
[2020-02-07 19:45] LABS: Potassium 3.9 mmoL/L (3.5-5.1)
[2020-02-07 19:47] LABS: Blood Urea Nitrogen 24 mg/dl (9-20); Creatinine Clearance Estimated 11 mL/min (50-200); Estimated Glomerular Filt Rate 8 ml/min (>60); GFR (African American) 10 ML/MIN (>60)
[2020-02-07 19:48] LABS: Anion Gap 21.9 mEq/L (5-15); Calcium 8.9 mg/dl (8.4-10.2); Carbon Dioxide 24 mmol/L (22.0-30.0); Glucose 155 mg/dl (74-100)
[2020-02-07 19:49] LABS: Lactic Acid 2.8 mmol/L (0.7-2.1)
[2020-02-07 19:59] LABS: Troponin I 0.04 ng/ml (0.00-0.034)
[2020-02-07 20:18] VITALS: BP 157/89; PULSE 85; RESP 20; TEMP 36.7; O2SAT 100
== END 2020-02-07 20:22 | disposition home or self-care (01) ==
PROVIDERS: Emergency Provider Emergency Medicine; PCP Physician Assistant
DX: R06.6 Hiccough (principal); E11.9 Type 2 diabetes mellitus without complications; I10 Essential (primary) hypertension; J44.9 Chronic obstructive pulmonary disease, unspecified; E78.5 Hyperlipidemia, unspecified; F17.210 Nicotine dependence, cigarettes, uncomplicated; Z90.49 Acquired absence of other specified parts of digestive tract; Z79.899 Other long term (current) drug therapy
CPT/HCPCS: 71045; 80048; 83605; 84484; 85025; 87040; 93005; 96374; 96375; 99284

== ENCOUNTER 2020-02-09 18:17 | Emergency (ER) | payer BC, MEDICARE, SELFPAY ==
[2020-02-09 18:20] VITALS: BP 165/72; PULSE 52; RESP 22; O2SAT 96; BMI 18.6
--- NOTE | 2020-02-09 18:35 | PC.NURSE ---
PT CAME IN VERY ANXIOUS , PT HAD BEEN HERE ON THURSDAY WITH SAME SYMPTOMS PT WAS GIVEN ATIVAN PT REQUESTING SOME MORE FOR ANXIETY
--- NOTE | 2020-02-09 18:35 | HMH.EDANX ---
ED Disposition Clinical Impression: Acute anxiety, Panic disorder Disposition: Home, Self-Care Condition on Discharge: Good Instructions: Anxiety Disorders, Anxiety and Panic Attacks (Alternative Therapy), Yoga May Help Reduce Anxiety and Stress Prescriptions: LORazepam [Ativan 1mg tablet] 1 mg PO BID PRN 7 Days #14 tablet PRN Reason: Agitation Escitalopram Oxalate [Lexapro] 10 mg PO DAILY 30 Days #30 tab Transmission Status: Sent to [facility] Referrals: Halina Desir PA [Primary Care Provider] - - Critical Care Critical Care Time: No Attestation: On 02/09/20, the high probability of a clinically significant, sudden or life threatening deterioration of the following system(s) required my full and direct attention, intervention and personal management. The time I documented below is in addition to time spent performing reported procedures but includes the following listed in this critical care notation. Medical Decision Making - Medical Records Medical records reviewed: Yes: I reviewed the patient's medical records. - Long Inquiry Pt receiving controlled substance: No Vital Signs: 02/09/20 18:20 Pulse Rate [Radial] 52 L Respiratory Rate 22 Blood Pressure [Right Arm] 165/72 H Blood Pressure Mean [Right Arm] 103 Blood Pressure Source [Right Arm] Automatic Cuff Blood Pressure Position [Right Arm] Sitting 02 Sat by Pulse Oximetry 96 Oxygen Delivery Method Room Air - Lab Data Lab results reviewed: Yes: I reviewed the patient's lab results. Medical Decision Narrative: This is a patient second panic attack in the last 10 days. He states that he has had these in the past but it is really started to happen more frequently due to social issues that are presently going on in her world today. I did start the patient on an SSRI Lexapro. And I am giving a small supply of p.o. Ativan to take at home. Patient needs to follow-up with his primary care to discuss further management. Anxiety HPI - General Chief Complaint: Anxiety Stated Complaint: SOB Time Seen by Provider: 02/09/20 18:36 Mode of Arrival: Ambulatory Source of Information: Patient Limitations: No Limitations Description of Symptoms (Recalled from ER Triage Doc. by RN): complaint of anxiousness and shortness of breath - History of Present Illness HPI narrative: 59-year-old male comes in with a severe anxiety attack. He states that he feels an intense feeling of impending doom. He also has acute palpitations dry mouth rapid heart rate and he has been hyperventilating and he states that his hands are numb. He denies any overt chest pain. He also denies any symptoms of an infectious process. He states he has these quite frequently. MD complaint: anxiety, heart racing, shortness of breath Onset (ago): hour(s) Symptoms: dyspnea, palpitations, dry mouth, sense of impending doom Severity: severe Quality: constant Place: home History of similar episodes: Yes Provoking factors: emotional stress Relieving factors: medication Exacerbating factors: thinking about event - Related Data Home Medications: Home Medications Medication Instructions Recorded Confirmed Insulin Lispro [Humalog KwikPen 3 unit SQ TID 08/14/19 01/31/20 Insulin] albuterol sulfate 90 mcg/actuation 1 inh INHALATION QID 09/20/19 01/31/20 aerosol inhaler amlodipine 10 mg tablet 10 mg PO DAILY 09/20/19 01/31/20 carvedilol 25 mg tablet 25 mg PO BID 09/20/19 01/31/20 hydralazine 25 mg tablet 25 mg PO TID 09/20/19 01/31/20 levetiracetam 1,000 mg tablet 1,000 mg PO Q12H 09/20/19 01/31/20 calcium acetate(phosphat bind) 667 667 mg PO DAILY 10/04/19 01/31/20 mg capsule ticagrelor 60 mg tablet 60 mg PO BID 11/16/19 01/31/20 Gabapentin [Gabapentin 300mg Cap] 300 mg PO QID 01/03/20 01/31/20 lisinopril 20 mg tablet 20 mg PO DAILY tab 01/03/20 01/31/20 metoprolol tartrate 25 mg tablet 25 mg PO DAILY tab 01/03/20 01/31/20 Apixaban [Eliquis] 5 m
[2020-02-09 18:53] VITALS: BP 165/72; PULSE 52; RESP 22; TEMP 36.8; O2SAT 96
== END 2020-02-09 18:55 | disposition home or self-care (01) ==
PROVIDERS: Emergency Provider Family Medicine; PCP Physician Assistant
DX: F41.0 Panic disorder [episodic paroxysmal anxiety] (principal); E11.9 Type 2 diabetes mellitus without complications; Z79.4 Long term (current) use of insulin; I10 Essential (primary) hypertension; J44.9 Chronic obstructive pulmonary disease, unspecified; E78.5 Hyperlipidemia, unspecified; Z90.49 Acquired absence of other specified parts of digestive tract; Z79.899 Other long term (current) drug therapy
CPT/HCPCS: 96372; 99281

== ENCOUNTER 2020-02-14 14:29 | Emergency (ER) | payer BC, MEDICARE, SELFPAY ==
--- NOTE | 2020-02-14 14:29 | ECG_ITS ---
APPROVED REPORT Exam: Resting ECG HR:82 bpm ECG Measurements Heart Rate 82 AXES WI 130 P 47 QRSd 88 QRS 79 QT 430 T 200 QTc 502 <Conclusion> Normal sinus rhythm Left ventricular hypertrophy with repolarization abnormality Prolonged QT Abnormal ECG Electronically signed by : Fernando Estrella, 02/18/2020 14:19:08
[2020-02-14 14:36] VITALS: BP 129/80; PULSE 80; RESP 30; TEMP 36.8; O2SAT 99; BMI 22.5
[2020-02-14 14:37] VITALS: BMI 24.2
--- NOTE | 2020-02-14 14:37 | XR_ITS ---
PROCEDURE: XR CHEST PORTABLE CLINICAL HISTORY: SOA, confusion COMPARISON: AGCHEST CT angio chest from 04/25/2019 XR CHEST PORTABLE from 01/03/2020 XR CHEST PORTABLE from 01/31/2020 XR CHEST PORTABLE from 02/07/2020 FINDINGS: Mild cardiomegaly with mild pulmonary venous congestion and mild interstitial edema. There are small bilateral pleural effusions. Right IJ Vas-Cath is in place with tip in the region the SVC. No acute bony abnormalities. IMPRESSION: Mild interstitial edema which is improved from 02/07/2020 with small bilateral effusions Dictated by: Tommy Powell MD 02/14/2020 16:14 Electronically signed by Tommy Powell MD in [place] 02/14/2020 16:14
--- NOTE | 2020-02-14 14:37 | CT_ITS ---
PROCEDURE: CT HEAD/BRAIN WO CON CLINICAL INDICATION: confusion The the Altered mental status, altered level of consciousness, confusion, disorientation COMPARISON: CT HEAD/BRAIN WO CON from 08/14/2019 TECHNIQUE: Axial images obtained. All CT scans at the facility use one or more dose reduction, viz: automated exposure control, ma/kV adjustment per patient size (including targeted exams where dose is matched to indication, i.e. head), or iterative reconstruction technique. FINDINGS: No midline shift, mass effect, intracranial hemorrhage, hydrocephalus, or extra-axial fluid collection is evident. There are encephalomalacia changes both occipital lobes right more extensive than left. Periventricular ischemic gliotic changes are noted. The calvarium has an unremarkable appearance. No mastoid effusion. No sinus air-fluid level. IMPRESSION: 1. No acute intracranial findings. 2. Encephalomalacia changes in both occipital lobes right greater than left with periventricular ischemic gliotic changes Dictated by: Tommy Powell MD 02/14/2020 16:07 Electronically signed by Tommy Powell MD in [facility] 02/14/2020 16:07
--- NOTE | 2020-02-14 14:42 | PC.NURSE ---
notified ER MD of pt confusion and pt c/o SOA. Sa02 99% on RA, placed pt on O2 @ 2L per NC for comfort. Placed orders r/t chest pain protocol. No new orders obtained from ER MD, will continue to monitor
--- NOTE | 2020-02-14 14:45 | HMH.EDGENADL ---
ED Disposition Clinical Impression: Hyperventilation syndrome, Confusion Disposition: Home, Self-Care Condition on Discharge: Good Instructions: DI for Hyperventilation, DI for Altered Mental Status Additional Instructions: Stop taking Ativan (lorazepam), Lexapro (escitalopram), and Thorazine. Dialysis tomorrow as scheduled. Follow-up in the office with Halina Desir, call tomorrow for appointment. Return to the emergency department if symptoms return. Referrals: Provider,Referral, [Primary Care Provider] - - Critical Care Critical Care Time: No Attestation: On 02/14/20, the high probability of a clinically significant, sudden or life threatening deterioration of the following system(s) required my full and direct attention, intervention and personal management. The time I documented below is in addition to time spent performing reported procedures but includes the following listed in this critical care notation. Medical Decision Making - Medical Records Medical records reviewed: Yes: I reviewed the patient's medical records. - Long Inquiry Pt receiving controlled substance: Yes Long was queried for this patient: No Reason not queried -: Emergent pt cond-no time Risks and benefits of using a controlled substance: were not discussed with pt by me Vital Signs: 02/14/20 14:36 02/14/20 16:01 02/14/20 17:31 Temperature 98.3 F Temperature Source Oral Pulse Rate Pulse Rate [Right Radial] 80 82 86 Respiratory Rate 30 H Blood Pressure Blood Pressure [Right Arm] 129/80 141/91 H 158/77 H Blood Pressure Mean [Right Arm] 96 107 104 Blood Pressure Source Blood Pressure Source [Right Arm] Automatic Cuff Automatic Cuff Automatic Cuff Blood Pressure Position Blood Pressure Position [Right Arm] Sitting Sitting Sitting 02 Sat by Pulse Oximetry 99 100 98 Oxygen Delivery Method Room Air Nasal Cannula Room Air Oxygen Flow Rate (LPM) 2 02/14/20 17:36 Temperature 98.2 F Temperature Source Oral Pulse Rate 79 Pulse Rate [Right Radial] Respiratory Rate 16 Blood Pressure 158/77 H Blood Pressure [Right Arm] Blood Pressure Mean [Right Arm] Blood Pressure Source Automatic Cuff Blood Pressure Source [Right Arm] Blood Pressure Position Sitting Blood Pressure Position [Right Arm] 02 Sat by Pulse Oximetry Oxygen Delivery Method Room Air Oxygen Flow Rate (LPM) - Lab Data Lab results reviewed: Yes: I reviewed the patient's lab results. Lab Results 02/14/20 14:39: WBC 5.6, RBC 2.34 L, Hgb 8.1 L, Hct 24.2 L, MCV 103.4 H, MCH 34.8 H, MCHC 33.6, RDW 16.6, Plt Count 213, MPV 7.9, Neut % (Auto) 60.9, Lymph % (Auto) 31.6, [place] % (Auto) 4.3, Eos % (Auto) 2.5, Baso % (Auto) 0.7, Neut # (Auto) 3.4, Lymph # (Auto) 1.8, [place] # (Auto) 0.2, Eos # (Auto) 0.1, Baso # (Auto) 0.0 02/14/20 14:39: Sodium 130 L, Potassium 3.5, Chloride 95 L, Carbon Dioxide 22, Anion Gap 16.5 H, BUN 24 H, Creatinine 6.90 H, Estimated Creat Clear 11, Estimated GFR 8 L*, Est GFR ( Amer) 10 L*, Glucose 107 H, Calcium 8.1 L, Troponin I 0.02 02/14/20 14:39: Salicylates < 1.0 L, Acetaminophen < 10 L 02/14/20 14:39: Plasma/Serum Alcohol < 10 02/14/20 14:53: Specimen Source Left brachial, O2 % 28% nc, ABG pH 7.68 H*, ABG pCO2 16.5 L, ABG pO2 60.0 L, ABG HCO3 19.0 L, ABG Total CO2 19.5 L, ABG O2 Saturation 94, ABG Base Excess -1.3, Tommy Test Patient unable Blood gases are likely venous, as the patient's pulse ox has been 100% in the emergency department. Result diagrams: 02/14/20 14:39 02/14/20 14:39 Orders (Tests/Meds): ED MEDICATIONS Discontinued Medications Generic Name Dose Route Start Last Admin Trade Name Freq PRN Reason Stop Dose Admin Lorazepam 1 mg 02/14/20 14:54 02/14/20 15:01 Ativan 2mg/Ml Vial IV 02/14/20 14:55 1 mg ONCE ONE Administration Sodium Chloride 10 ml 02/14/20 14:54 Sodium Chloride 0.9% 10ml Vial IV 03/15/20 14:53 NEEDED PRN to Dilute Lorazepam inj ORDERS Ca
[2020-02-14 14:49] LABS: Basophils % 0.7 % (0.1-2.0); Eosinophils # 0.1 K/mm3 (0.0-0.4); Eosinophils % 2.5 % (0.1-12.0); Hematocrit 24.2 % (42.0-52.0); Hemoglobin 8.1 g/dL (14.1-18.0); Lymphocytes # 1.8 K/mm3 (0.7-4.5); Lymphocytes % 31.6 % (10-50); Mean Corpuscular HGB Conc 33.6 g/dL (31.8-35.4); Mean Corpuscular Hemoglobin 34.8 pg (27.0-31.2); Mean Corpuscular Volume 103.4 fl (80-94); Mean Platelet Volume 7.9 fl (7.4-10.4); Monocytes # 0.2 K/mm3 (0.1-1.0); Monocytes % 4.3 % (1.7-9.3); Neutrophils # 3.4 K/mm3 (1.8-7.8); Neutrophils % 60.9 % (37.0-80.0); Platelet Count 213 K/mm3 (142-424); Red Blood Count 2.34 M/mm3 (4.60-6.20); Red Cell Distribution Width 16.6 % (11.5-17.5); White Blood Count 5.6 K/mm3 (4.8-10.8)
--- NOTE | 2020-02-14 14:53 | PC.NURSE ---
rt called for abg
[2020-02-14 15:00] LABS: Anion Gap 16.5 mEq/L (5-15); Blood Urea Nitrogen 24 mg/dl (9-20); Calcium 8.1 mg/dl (8.4-10.2); Carbon Dioxide 22 mmol/L (22.0-30.0); Chloride 95 mmol/L (98-107); Creatinine Clearance Estimated 11 mL/min (50-200); Estimated Glomerular Filt Rate 8 ml/min (>60); GFR (African American) 10 ML/MIN (>60); Glucose 107 mg/dl (74-100); Potassium 3.5 mmoL/L (3.5-5.1); Sodium 130 mmol/L (136-145)
--- NOTE | 2020-02-14 15:02 | PC.NURSE ---
RT at BS to collect ABG
[2020-02-14 15:12] LABS: Troponin I 0.02 ng/ml (0.00-0.034)
[2020-02-14 15:33] LABS: ABG Base Excess -1.3 mmol/L (-2.4-2.3); ABG Oxygen Saturation 94 % (90-100); ABG TCO2 19.5 mmhg (23-27)
[2020-02-14 15:38] LABS: Allen's Test Patient Unable; Oxygen 28% NC %; Source Left Brachial
[2020-02-14 15:40] LABS: ABG PCO2 16.5 mmhg (35.0-45.0); ABG PH 7.68 mmol/L (7.35-7.45)
[2020-02-14 16:01] VITALS: BP 141/91; PULSE 82; O2SAT 100
--- NOTE | 2020-02-14 16:31 | PC.NURSE ---
DELPHINE JAMES speaking with Dr. Estrella who is manager database administration for Dr. Tee
--- NOTE | 2020-02-14 16:45 | PC.NURSE ---
DELPHINE JAMES speaking with Dr. Macario at in the ER at this time
--- NOTE | 2020-02-14 16:46 | PC.NURSE ---
[facility] states they are on divert at this time
--- NOTE | 2020-02-14 16:48 | PC.NURSE ---
entered room to ask pt what other hospital she would like us to try for transfer pt to. Pt states pt is wanting to go home. Pt is sitting up on stretcher pt is more alert than he previously was. Pt states I want to go home . Pt states some of his memory has come back . Pt requests to speak with DELPHINE JAMES. Notified DELPHINE JAMES
[2020-02-14 17:03] LABS: Salicylate < 1.0 mg/dL (2.0-20.0)
[2020-02-14 17:04] LABS: Acetaminophen < 10 ug/ml (10-30); Ethyl Alcohol < 10 mg/dl (0-10)
[2020-02-14 17:31] VITALS: BP 158/77; PULSE 86; O2SAT 98
[2020-02-14 17:36] VITALS: BP 158/77; PULSE 79; RESP 16; TEMP 36.8; O2SAT 98
== END 2020-02-14 17:37 | disposition home or self-care (01) ==
PROVIDERS: Emergency Provider Emergency Medicine
DX: R06.02 Shortness of breath (principal); E11.9 Type 2 diabetes mellitus without complications; I10 Essential (primary) hypertension; J44.9 Chronic obstructive pulmonary disease, unspecified; E78.5 Hyperlipidemia, unspecified; I73.9 Peripheral vascular disease, unspecified; F17.210 Nicotine dependence, cigarettes, uncomplicated
CPT/HCPCS: 70450; 71045; 80048; 80329; 82803; 84484; 85025; 93005; 96374; 99284

== ENCOUNTER 2020-02-20 19:33 | Inpatient (IN) | payer BC, MEDICARE, SELFPAY ==
[2020-02-20] VITALS (7 sets, daily range): BP systolic 117–159; BP diastolic 58–101; PULSE 87–101; RESP 15–25; TEMP 36.9; O2SAT 96–100; BMI 23.0
--- NOTE | 2020-02-20 19:31 | ECG_ITS ---
APPROVED REPORT Exam: Resting ECG HR:102 bpm ECG Measurements Heart Rate 102 AXES NM 134 P 68 QRSd 84 QRS 72 QT 368 T 112 QTc 479 <Conclusion> Sinus tachycardia Nonspecific ST and T wave abnormality Abnormal ECG Electronically signed by : Sen Rodríguez, 02/21/2020 13:14:22
--- NOTE | 2020-02-20 20:01 | CT_ITS ---
PROCEDURE: CT CHEST WO CON CLINICAL INDICATION: chest pain,soa Shortness of breath with chest pain, patient on dialysis COMPARISON: AGCHEST CT angio chest from 04/25/2019 CT ABDOMEN PELVIS WO CON from 08/14/2019 TECHNIQUE: Axial images obtained with sagittal and coronal reformats. All CT scans at the facility use one or more dose reduction, viz: automated exposure control, ma/kV adjustment per patient size (including targeted exams where dose is matched to indication, i.e. head), or iterative reconstruction technique. FINDINGS: HEART AND MEDIASTINAL STRUCTURES: Mildly enlarged mediastinal lymph nodes are present and have increased in size compared to the previous exam. Small axillary nodes are also noted. A precarinal node measures up to 2.4 by 1.3 cm previously measuring 1.8 x 0.7 cm. There are coronary artery calcifications. There is cardiomegaly. LUNGS AND PLEURAL SPACES: . there are small to medium-sized bilateral pleural effusions. Centrilobular emphysema is present with mild diffuse ground-glass opacification with atelectatic changes in the lower lobes. There is a stable 8 mm nodule in the right upper lobe. BONY STRUCTURES: No acute bony abnormalities apparent. UPPER ABDOMEN: Splenomegaly at 15 cm. Postsurgical changes of the aorta with abdominal aortic and bilateral renal artery stent ADDITIONAL FINDINGS: Mildly prominent axillary lymph nodes IMPRESSION: 1. Mild diffuse ground-glass opacification of the lungs suggesting pulmonary edema or atypical pneumonia with atelectatic changes with a stable 8 mm nodule in the right upper lobe and with small to medium-sized bilateral pleural effusions with superimposed centrilobular emphysema 2. Mild mediastinal adenopathy which has increased since the previous exam 3. Splenomegaly Dictated by: Tommy Powell MD 02/21/2020 06:31 Electronically signed by Tommy Powell MD in [place] 02/21/2020 06:31
--- NOTE | 2020-02-20 20:01 | XR_ITS ---
PROCEDURE: XR CHEST PORTABLE CLINICAL HISTORY: chest pain Chest pain, former smoker COMPARISON: AGCHEST CT angio chest from 04/25/2019 XR CHEST PORTABLE from 01/31/2020 XR CHEST PORTABLE from 02/07/2020 XR CHEST PORTABLE from 02/14/2020 FINDINGS: The cardiomediastinal silhouette and pulmonary vascularity are within normal limits. Right IJ Vas-Cath is present with tip in the region of the distal SVC Increased density is present in the right lower lobe consistent with pneumonia. There is small left effusion. There is some mild pulmonary venous congestion. Bone plate is present along the lower cervical spine IMPRESSION: Right lower lobe pneumonia Trace left effusion Mild pulmonary venous congestion suggesting plasma volume overload Dictated by: Tommy Powell MD 02/20/2020 21:29 Electronically signed by Tommy Powell MD in [place] 02/20/2020 21:29
[2020-02-20 20:20] LABS: Chloride 94 mmol/L (98-107); Potassium 4.2 mmoL/L (3.5-5.1); Sodium 134 mmol/L (136-145)
[2020-02-20 20:23] LABS: Anion Gap 15.2 mEq/L (5-15); Basophils % 0.5 % (0.1-2.0); Blood Urea Nitrogen 21 mg/dl (9-20); Carbon Dioxide 29 mmol/L (22.0-30.0); Creatinine Clearance Estimated 17 mL/min (50-200); Eosinophils # 0.1 K/mm3 (0.0-0.4); Eosinophils % 1.8 % (0.1-12.0); Estimated Glomerular Filt Rate 13 ml/min (>60); GFR (African American) 15 ML/MIN (>60); Hemoglobin 9.2 g/dL (14.1-18.0); Lymphocytes # 0.9 K/mm3 (0.7-4.5); Mean Corpuscular HGB Conc 33.9 g/dL (31.8-35.4); Mean Corpuscular Hemoglobin 35.1 pg (27.0-31.2); Mean Corpuscular Volume 103.6 fl (80-94); Mean Platelet Volume 8.3 fl (7.4-10.4); Monocytes # 0.3 K/mm3 (0.1-1.0); Monocytes % 4.5 % (1.7-9.3); Neutrophils # 4.4 K/mm3 (1.8-7.8); Neutrophils % 77.1 % (37.0-80.0); Platelet Count 165 K/mm3 (142-424); Red Blood Count 2.61 M/mm3 (4.60-6.20); Red Cell Distribution Width 16.3 % (11.5-17.5); White Blood Count 5.7 K/mm3 (4.8-10.8)
[2020-02-20 20:24] LABS: Calcium 7.9 mg/dl (8.4-10.2); Glucose 155 mg/dl (74-100)
[2020-02-20 20:35] LABS: Troponin I 0.04 ng/ml (0.00-0.034)
--- NOTE | 2020-02-20 20:50 | PC.NURSE ---
unable to scan patient for pe due to low gfr.
[2020-02-20 21:43] LABS: NT Pro Brain Natriuretic Pep. 232000 pg/mL (0-125)
--- NOTE | 2020-02-20 22:52 | PC.NURSE ---
call for confirmation of bnp from [facility]
--- NOTE | 2020-02-20 23:14 | HMH.EDCP ---
ED Disposition Clinical Impression: Diabetes mellitus, insulin dependent (IDDM), uncontrolled, ESRD (end stage renal disease) on dialysis Chest pain Qualifiers: Chest pain type: precordial pain Qualified Code(s): R07.2 - Precordial pain Disposition: Admitted as Observation Condition on Discharge: Good - Critical Care Critical Care Time: No Attestation: On 02/20/20, the high probability of a clinically significant, sudden or life threatening deterioration of the following system(s) required my full and direct attention, intervention and personal management. The time I documented below is in addition to time spent performing reported procedures but includes the following listed in this critical care notation. Medical Decision Making - Medical Records Medical records reviewed: Yes: I reviewed the patient's medical records. - Long Inquiry Pt receiving controlled substance: No Vital Signs: 02/20/20 19:48 Temperature 98.5 F Temperature Source Oral Pulse Rate [Right Brachial] 101 H Respiratory Rate 18 Blood Pressure [Right Arm] 159/101 H Blood Pressure Mean [Right Arm] 120 Blood Pressure Source [Right Arm] Automatic Cuff Blood Pressure Position [Right Arm] Sitting 02 Sat by Pulse Oximetry 100 Oxygen Delivery Method Room Air - Lab Data Lab results reviewed: Yes: I reviewed the patient's lab results. Lab Results 02/20/20 20:00: WBC 5.7, RBC 2.61 L, Hgb 9.2 L, Hct 27.0 L, MCV 103.6 H, MCH 35.1 H, MCHC 33.9, RDW 16.3, Plt Count 165, MPV 8.3, Neut % (Auto) 77.1, Lymph % (Auto) 16.0, [place] % (Auto) 4.5, Eos % (Auto) 1.8, Baso % (Auto) 0.5, Neut # (Auto) 4.4, Lymph # (Auto) 0.9, [place] # (Auto) 0.3, Eos # (Auto) 0.1, Baso # (Auto) 0.0 02/20/20 20:00: Sodium 134 L, Potassium 4.2, Chloride 94 L, Carbon Dioxide 29, Anion Gap 15.2 H, BUN 21 H, Creatinine 4.80 H, Estimated Creat Clear 17, Estimated GFR 13 L*, Est GFR ( Amer) 15 L*, Glucose 155 H, Calcium 7.9 L, Troponin I 0.04 H 02/20/20 20:00: NT-Pro-B Natriuret Pep [id number] H 02/20/20 23:24: Troponin I 0.05 H Result diagrams: 02/20/20 20:00 02/20/20 20:00 Orders (Tests/Meds): ED MEDICATIONS Generic Name Dose Route Start Last Admin Trade Name Freq PRN Reason Stop Dose Admin Nitroglycerin 0.4 mg 02/20/20 20:19 02/21/20 00:39 Nitrostat 0.4mg Sl Tablet SL 03/21/20 20:18 1 tab [id number] PRN Administration Chest Pain Discontinued Medications Generic Name Dose Route Start Last Admin Trade Name Freq PRN Reason Stop Dose Admin Aspirin 324 mg 02/20/20 20:19 02/20/20 20:41 Aspirin 81mg Chewable Tablet PO 02/20/20 20:20 324 mg ONCE ONE Administration Nitroglycerin 1 gm 02/21/20 00:38 02/21/20 00:40 Nitroglycerin 1 Inch Oint Udp TD 02/21/20 00:39 1 gm ONCE ONE Administration ORDERS Category Date Time Status CT chest wo con Stat Cat Scan 02/20/20 20:01 Taken Troponin I Q3H Lab 02/21/20 02:15 Ordered - Radiology Data #1 Image(s): Chest Image Reviewed: Yes I reviewed the patient's radiology image Preliminary Findings: Abnormal (mild chf) - CT Data CT Scan: Chest Time Received: 00:[address] Reviewed: Yes: I have viewed the radiologist's interpretation Preliminary Findings: Abnormal (see report ) - ECG Data Tracing #1 Arrhythmias present: sinus tach Ischemic changes: non-specific ST-T wave changes - Physician Consults Physician Consulted: tucker Reason -: Pt condition Chest Pain HPI - General Chief Complaint: Chest Pain Stated Complaint: chest pain Time Seen by Provider: 02/20/20 20:20 Mode of Arrival: Family Vehicle Source of Information: Patient, Spouse, Medical Record Limitations: No Limitations Description of Symptoms (Recalled from ER Triage Doc. by RN): chest pain since 170 that came on without any apparent reason. states he was okay , had dialysis today and felt good and has beenokay throughout the day. patient stated onset of cp that radiates through his back with no improvem
--- NOTE | 2020-02-20 23:18 | PC.NURSE ---
lab to come draw second troponin, spoke with jean
[2020-02-20 23:59] LABS: Troponin I 0.05 ng/ml (0.00-0.034)
[2020-02-21] VITALS (31 sets, daily range): BP systolic 81–173; BP diastolic 34–134; PULSE 73–101; RESP 16–24; TEMP 36.4–36.9; O2SAT 92–100; BMI 19.3
--- NOTE | 2020-02-21 01:54 | PC.NURSE ---
patient up to floor via wheelchair.
[2020-02-21 02:42] LABS: Troponin I 0.04 ng/ml (0.00-0.034)
[2020-02-21 05:47] LABS: POC Glucose,Bedside 161 (70-110)
--- NOTE | 2020-02-21 06:19 | PC.NURSE ---
a&o x4. no c/o pain this shift. pt rested well with eyes closed. tolerated ra well with no c/o soa. bilateral breath sounds noted clear t/o upon auscultation. rr even and unlabored. remains npo for consult this am. pt requested code status to be DNR. consent signed and on chart for md to review. pt is not ordered a fluid restriction diet, but upon receiving report from ed, rn states pt is aware of his restriction needs and can make staff aware. given in report that md is okay with this. vss. remains safe. call light within reach. encouraged pt to ring for staff standby assist to amb to bathroom due to weakness. will continue to monitor.
[2020-02-21 06:48] LABS: Basophils % 0.7 % (0.1-2.0); Eosinophils # 0.1 K/mm3 (0.0-0.4); Hematocrit 24.7 % (42.0-52.0); Hemoglobin 8.3 g/dL (14.1-18.0); Lymphocytes # 1.3 K/mm3 (0.7-4.5); Lymphocytes % 30.4 % (10-50); Mean Corpuscular HGB Conc 33.5 g/dL (31.8-35.4); Mean Corpuscular Hemoglobin 34.8 pg (27.0-31.2); Mean Platelet Volume 8.4 fl (7.4-10.4); Monocytes # 0.2 K/mm3 (0.1-1.0); Monocytes % 5.2 % (1.7-9.3); Neutrophils # 2.6 K/mm3 (1.8-7.8); Neutrophils % 60.9 % (37.0-80.0); Platelet Count 140 K/mm3 (142-424); Red Blood Count 2.37 M/mm3 (4.60-6.20); Red Cell Distribution Width 16.4 % (11.5-17.5); White Blood Count 4.2 K/mm3 (4.8-10.8)
[2020-02-21 06:59] LABS: Chloride 96 mmol/L (98-107); Potassium 3.5 mmoL/L (3.5-5.1); Sodium 133 mmol/L (136-145)
[2020-02-21 07:02] LABS: Anion Gap 13.5 mEq/L (5-15); Blood Urea Nitrogen 29 mg/dl (9-20); Calcium 7.5 mg/dl (8.4-10.2); Carbon Dioxide 27 mmol/L (22.0-30.0); Cholesterol 164 mg/dl (140-200); Creatinine Clearance Estimated 13 mL/min (50-200); Estimated Glomerular Filt Rate 10 ml/min (>60); GFR (African American) 12 ML/MIN (>60); Glucose 137 mg/dl (74-100); Triglycerides 204 mg/dl (30-150); VLDL Cholesterol 41 mg/dL (0-40)
[2020-02-21 07:03] LABS: Chol/HDL Ratio 4.3 (1-3.5); HDL Cholesterol 38 mg/dl (40-60)
[2020-02-21 07:14] LABS: Direct LDL Cholesterol 71.89 mg/dL (100-129)
[2020-02-21 07:31] LABS: Magnesium 1.9 mg/dl (1.6-2.3)
--- NOTE | 2020-02-21 08:00 | CA_ITS ---
APPROVED REPORT EXAM: Comprehensive 2D, Doppler, and color-flow Echocardiogram Aircraft Engineer: Clarice Valverde RDCS Ht: 5 ft 9 in Wt: 156lbs BSA: 1.86 BP: 159/100 mmHg Indications: CP,SMOKER,PVD,END STAGE RENAL DISEASE 2D Dimensions LVOT 1.99 cm (M/F) 1.5-2.5 M-Mode Dimensions RVDd 1.87 cm (0.9-2.6) LVDd 6.39 cm (3.5-5.7) LVDs 5.53 cm (3.5-5.7) IVSd 0.81 cm (0.6-1.1) PWd 0.93 cm (0.6-1.1) EF (Teich) 28.20% FS 13.50% EDV (Teich) 207.80 mL ESV (Teich) 149.30 mL LV Diastology E/A Ratio 2.03 Aortic Valve AO VTI 149.15 (18-25 cm) Mitral Valve MV A Velocity 42.00 (40-130 cm/s) Left Ventricle Left atrium is moderately enlarged, left ventricle is mildly dilated, mild concentric left ventricular hypertrophy, visually estimated ejection fraction approximately 40%, there is moderate hypokinesis involving the inferior wall inferior basal basal septum and posterolateral wall. Grade 1 diastolic dysfunction seen with tissue Doppler evidence of raise left atrial pressure. Right Ventricle Right atrium and right ventricular normal size and contractility. Aortic Valve Aortic valve is minimally thickened and calcified, there is no aortic stenosis, there is trace aortic insufficiency. Mitral Valve Mitral valve is minimally thickened, there is no mitral stenosis, there is severe mitral regurgitation. Tricuspid Valve Tricuspid valve is grossly normal, there is mild tricuspid regurgitation, tricuspid regurgitation jet velocity is inadequate for calculation of the right ventricular systolic pressure. Inferior vena cava is mildly dilated with no significant inspiratory collapse. Pulmonic Valve Pulmonic valve is poorly visualized. Great Vessels Aortic root is normal size. Pericardium Trivial pericardial effusion noted. Conclusion 1. Moderately enlarged left atrium, mildly dilated left ventricle, mild concentric left ventricular hypertrophy, visually estimated ejection fraction 40% with segmental wall motion abnormality described above, grade 1 diastolic dysfunction seen with tissue Doppler evidence of raise left atrial pressure. 2. Thickened and calcified aortic valve without aortic stenosis, trace aortic insufficiency. 3. Severe mitral regurgitation as described above. 4. Mild tricuspid regurgitation. 5. Trivial pericardial effusion noted. Electronically signed by : Sanjiv Tate, 02/21/2020 21:23:31
--- NOTE | 2020-02-21 08:19 | P.CONPHA_ITS ---
[facility] Pharmacy VTE Monitoring - Patient Demographics Admission date: 02/21/20 Report Date: 02/21/20 Time: 08:19 Allergies/Adverse Reactions: Patient Allergies No Known Allergies Allergy (Verified 02/14/20 13:58) Height: 1.85 m Weight: 66.395 kg Patient Problems: Current Active Problems Diabetes mellitus, insulin dependent (IDDM), uncontrolled (Acute) ESRD (end stage renal disease) on dialysis (Acute) Chest pain (Acute) - VTE Risk Labs: VTE Related Lab Results Hgb 8.3 g/dL (14.1-18.0) L 02/21/20 06:09 Hct 24.7 % (42.0-52.0) L 02/21/20 06:09 Plt Count 140 K/mm3 (142-424) L 02/21/20 06:09 BUN 29 mg/dl (9-20) H D 02/21/20 06:09 Creatinine 6.00 mg/dl (0.66-1.25) H D 02/21/20 06:09 Estimated Creat Clear 13 mL/min (50-200) 02/21/20 06:09 Was VTE Risk Assessment Performed: Yes VTE Score: 3 VTE Risk Level: Low Risk Clinical Trial Participant: No - Prophylaxis VTE Prophylaxis Ordered?: Yes Types of VTE Prophylaxis: TEDS Knee High
--- NOTE | 2020-02-21 08:43 | HMH.CNCARD ---
History of Present Illness Consult date: 02/21/20 Requesting physician: Xavier Tee Consult reason: chest pain Chief complaint: chest pain Additional Medical History:: 1. Hypertension 2. Hyperlipidemia 3. Chronic tobacco use, discontinued 08/2019, greater than [id number] history A. COPD 4. History of pulmonary embolus in February 2011 5. Peripheral arterial disease A. Status post surgery 07/26 for infrarenal aortic plaquing and stenosis of the right common iliac artery, Dr. Trinidad 6. Chronic neck pain, status post C6-7 fusion 2007 7. Qym-qenkjli-kjqiowzog diabetes mellitus, treated since approximately 2011 A. Hemodialysis since approximately August 2019 8. History of anxiety/depression 9. End-stage renal disease now on hemodialysis since approximately 08/2019 10. History of cardiac catheterization, 2006 showing normal left ventricular ejection fraction with only minimal luminal irregularities History of present illness: 59-year-old white male with insulin-dependent diabetes mellitus, end-stage renal disease with hemodialysis, hypertension and hyperlipidemia presented to the emergency department for evaluation of chest pain/abdominal pain with radiation to the lower back of acute onset last evening. Patient did receive nitroglycerin in the ER with resolution of symptoms approximately 20 minutes later. Patient did receive hemodialysis yesterday. Troponins noted to be mildly elevated in the setting of end-stage renal disease. Preliminary echocardiogram this morning shows reduced ejection fraction of approximately 35% which according to the patient is new. His last cardiac catheterization was in 2006 and did not require intervention at that time. [facility] History Medical History: Reports:: Congestive Heart Failure, Chronic Obstructive Pulmonary Disease (COPD), Diabetes Mellitus Type 1, Diabetes Mellitus Type 2, Hyperlipidemia, Hypertension, Peripheral Vascular Disease Denies:: Cancer, Internal Pacemaker *Have you ever received a pneumonia vaccine?: Yes *Have you received a flu vaccine this season?: Yes Other Medical History: Reports: Anemia Other Surgeries: Yes: Cholecystectomy, Colon Resection, Coronary Stent. No: Pacemaker Amputation: No Fractures: No - *Social History Educational Level: Completed GED/General Educational Development Smoking Status: Former smoker Tobacco Type: cigarettes # Packs/Day (cigarettes): 1 #Yrs smoked (if former smoker): 25 Smoking End Date: 08/14/2019 Alcohol Intake: former Substance Use Type: denies use *Occupational Status:: disabled Housing: house Household Members: spouse, children, adopted family *Travel in the last 8 weeks: None Family Hx:: Diabetes, Heart Attack, Hypertension, Stroke Meds Home Medications Medication Instructions Recorded Confirmed Type Insulin Lispro [Humalog KwikPen 3 unit SQ TID 08/14/19 02/21/20 History Insulin] atorvastatin 80 mg tablet 80 mg PO QHS #90 tab 09/19/19 02/21/20 Rx albuterol sulfate 90 mcg/actuation 1 inh INHALATION QID 09/20/19 02/21/20 History aerosol inhaler amlodipine 10 mg tablet 10 mg PO DAILY 09/20/19 02/21/20 History carvedilol 25 mg tablet 25 mg PO BID 09/20/19 02/21/20 History hydralazine 25 mg tablet 25 mg PO TID 09/20/19 02/21/20 History levetiracetam 1,000 mg tablet 1,000 mg PO Q12H 09/20/19 02/21/20 History calcium acetate(phosphat bind) 667 667 mg PO DAILY 10/04/19 02/21/20 History mg capsule ticagrelor 60 mg tablet 60 mg PO BID 11/16/19 02/21/20 History Gabapentin [Gabapentin 300mg Cap] 300 mg PO QID 01/03/20 02/21/20 History lisinopril 20 mg tablet 20 mg PO DAILY tab 01/03/20 02/21/20 History metoprolol tartrate 25 mg tablet 25 mg PO DAILY tab 01/03/20 02/21/20 History Apixaban [Eliquis] 5 mg PO DAILY 01/31/20 02/21/20 History Aspirin 81 mg PO DAILY 01/31/20 02/21/20 History Sitagliptin Phosphate [Januvia 25 mg PO DAILY 01/31/20 02/21/20 History 25mg Tablet] Chlorpromazine HCl [Thorazine 25mg 25 mg PO TID 10 Days
[2020-02-21 09:22] LABS: Adenovirus,PCR Not Detected (NotDetected); Bordetella Pertussis Not Detected (NotDetected); Chlamydophila Pneumoniae, PCR Not Detected (NotDetected); Coronavirus 19, PCR Not Detected (NotDetected); Coronavirus 229E Not Detected (NotDetected); Coronavirus NL63 Not Detected (NotDetected); Coronavirus OC43 Not Detected (NotDetected); Coronovirus HKU1,PCR Not Detected (NotDetected); Human Metapneumovirus Not Detected (NotDetected); Influenza A, PCR Not Detected (NotDetected); Influenza AH1, 2009 Not Detected (NotDetected); Influenza AH1, PCR Not Detected (NotDetected); Influenza AH3,PCR Not Detected (NotDetected); Influenza B, PCR Not Detected (NotDetected); Mycoplasma Pneumoniae, PCR Not Detected (NotDected); Parainfluenza 1, PCR Not Detected (NotDetected); Parainfluenza 2, PCR Not Detected (NotDetected); Parainfluenza 3, PCR Not Detected (NotDetected); Parainfluenza 4, PCR Not Detected (NotDetected); Respiratory Syncytial Virus Not Detected (NotDetected); Rhinovirus/Enterovirus Not Detected (NotDetected)
--- NOTE | 2020-02-21 09:24 | IR_ITS ---
APPROVED REPORT Patient Location: Inpatient Advertising Sales Representative: ROSALINO Avila RT (R) PROCEDURES Left heart catheterization Left ventriculogram Selective coronary angiogram Drug-eluting stent deployment to the mid to distal dominant right coronary artery INDICATION Coronary artery disease, Systolic congestive heart failure, Acute coronary syndrome Informed consent was obtained prior to the procedure. COMPLICATIONS None Estimated Blood Loss: less than 10 ml TECHNIQUE One percent lidocaine used to anesthetize the right anterior aspect of the wrist. The right radial artery was accessed via the Seldinger technique. A 6 Turkmen sheath was placed in the right radial artery. 2.5 mg of verapamil, 800 mcg of nitroglycerin, 1mg Lidocaine and 5000 U Heparin were given through the arterial sheath. The trap catheter was also used to perform left heart catheterization, left ventriculogram and selective coronary angiogram. At the end of the diagnostic angiogram therapeutic heparin was administered giving a therapeutic ACT and and I Minerva right guide catheter was used to intubate the right coronary artery. A BMW wire was placed distally and a 3.0 x 38 mm Xience drug-eluting stent was deployed at 20 aroldo reducing the stenosis. A 3.5 x 20 mm balloon was then deployed at 24 aroldo up and down the stent to post dilate. At the end of the procedure the apparatus was removed the sheath was removed good hemostasis was achieved using TR banding patient was transferred to the postop holding area in stable condition. YULY-3 flow was present before and after the procedure ANGIOGRAPHIC RESULTS The left main artery Has an ostial eccentric 20% stenosis and a distal 10% stenosis The left anterior descending artery Has a proximal 10 to 20% stenosis followed by a mid vessel long concentric 30% stenosis. A small to medium first diagonal artery has a proximal 50% stenosis with a larger 2.25 mm second diagonal artery has a proximal 50% stenosis The circumflex artery Is nondominant has a proximal to mid vessel concentric 30% stenosis The right coronary artery Is a large dominant vessel and has proximal 40% stenosis followed by a mid vessel long tubular 80 to 90% stenosis The MARTE ventriculogram reveals Left ventricular dysfunction estimated ejection fraction 35 to 40% The left ventricular end-diastolic pressure 10 mmHg IMPRESSION Coronary disease as described above Successful stenting of the mid to distal dominant right coronary artery severe disease reduced to 0% with one drug-eluting stent Persistent disease as described above Left ventricular dysfunction Normal left ventricular end-diastolic pressure PLAN 1. Brilinta aspirin and Eliquis for 1 month then discontinue the aspirin 2. LDL less than 55 3. Standard therapy for systolic heart failure 4. Risk factor modification 5. Cardiac rehabilitation 6. Avoidance of tobacco products Electronically signed by : Austin Florez, 02/21/2020 13:40:06
[2020-02-21 09:30] LABS: Coronavirus 19 IgG Antibody Negative (Negative); Coronavirus 19 IgM Antibody Negative (Negative)
--- NOTE | 2020-02-21 11:08 | HMH.PHAINT ---
Addendum entered and electronically signed by Cammie Do PharmD 02/21/20 11:09: MADE PAU POWERS AWARE THAT LIST WAS COMPLETED AND HE COULD RESTART HOME MEDS IF NEEDED Original Note: HOME MEDICATION RECONCILIATION COMPLETED USING LISTS FROM [facility] AND [facility]. PT UNAWARE OF ANY MEDICATION NAMES OR DOSES HE IS CURRENTLY TAKING.
[2020-02-21 11:39] LABS: POC Glucose,Bedside 135 (70-110)
--- NOTE | 2020-02-21 13:13 | PC.NURSE ---
Pt to clinical laboratory medical director approx [id number]
--- NOTE | 2020-02-21 14:10 | PC.NURSE ---
Have given report to Checo Roberts RN, pt is going to be moved to stepdown after heart cath.
--- NOTE | 2020-02-21 14:37 | HMH.HPDC ---
General - General Admission date:: 02/21/20 Discharge date: 02/21/20 *Admission Date: 02/21/20 *Chief complaint: Chest Pain *History of present illness: 59-year-old white male with insulin-dependent diabetes mellitus, end-stage renal disease with hemodialysis, hypertension and hyperlipidemia presented to the emergency department for evaluation of chest pain/abdominal pain with radiation to the lower back of acute onset last evening. Patient did receive nitroglycerin in the ER with resolution of symptoms approximately 20 minutes later. Patient did receive hemodialysis yesterday. Troponins noted to be mildly elevated in the setting of end-stage renal disease. Preliminary echocardiogram this morning shows reduced ejection fraction of approximately 35% which according to the patient is new. His last cardiac catheterization was in 2006 and did not require intervention at that time (Per [facility] Tellez P.A[facility] History Medical History: Reports:: Congestive Heart Failure, Chronic Obstructive Pulmonary Disease (COPD), Diabetes Mellitus Type 1, Diabetes Mellitus Type 2, Hyperlipidemia, Hypertension, Peripheral Vascular Disease Denies:: Cancer, Internal Pacemaker *Have you ever received a pneumonia vaccine?: Yes *Have you received a flu vaccine this season?: Yes Other Medical History: Reports: Anemia Other Surgeries: Yes: Cholecystectomy, Colon Resection, Coronary Stent. No: Pacemaker Amputation: No Fractures: No - *Social History Educational Level: Completed GED/General Educational Development Smoking Status: Former smoker Tobacco Type: cigarettes # Packs/Day (cigarettes): 1 #Yrs smoked (if former smoker): 25 Smoking End Date: 08/14/2019 Alcohol Intake: former Substance Use Type: denies use *Occupational Status:: disabled Housing: house Household Members: spouse, children, adopted family *Travel in the last 8 weeks: None Family Hx:: Diabetes, Heart Attack, Hypertension, Stroke Review of Systems - Review of Systems Review of systems:: pertinent systems reviewed and negative unless documented below - Constitutional Reports fatigue, Reports lack of energy - Eyes Denies blurry vision - ENT Denies ear discharge, Denies nasal congestion - *Cardiovascular Reports chest pain, Reports chest pain at rest, Reports shortness of breath - *Respiratory Reports cough, Reports shortness of breath - *Gastrointestinal Reports abdominal pain - *Genitourinary Denies difficulty urinating, Denies blood in urine - *Musculoskeletal Denies joint pain - *Neurologic Denies headache(s), Denies seizure-like activity - Psychiatric Denies hearing things others do not hear, Denies difficulty concentrating - Endocrine Denies cold intolerance, Denies heat intolerance - Hematologic/Lymphatic Denies easy bleeding, Denies easy bruising - Allergic/Immunologic Denies throat swelling, Denies tongue swelling Exam Vital signs and Labs for Last 24 Hours: Temp Pulse Resp BP Pulse Ox 98.2 F 88 20 170/100 H 100 02/21/20 11:44 02/21/20 14:21 02/21/20 14:21 02/21/20 14:21 02/21/20 14:21 Laboratory Results - last 24 hr 02/20/20 20:00: WBC 5.7, RBC 2.61 L, Hgb 9.2 L, Hct 27.0 L, MCV 103.6 H, MCH 35.1 H, MCHC 33.9, RDW 16.3, Plt Count 165, MPV 8.3, Neut % (Auto) 77.1, Lymph % (Auto) 16.0, Churchill % (Auto) 4.5, Eos % (Auto) 1.8, Baso % (Auto) 0.5, Neut # (Auto) 4.4, Lymph # (Auto) 0.9, Churchill # (Auto) 0.3, Eos # (Auto) 0.1, Baso # (Auto) 0.0 02/20/20 20:00: Sodium 134 L, Potassium 4.2, Chloride 94 L, Carbon Dioxide 29, Anion Gap 15.2 H, BUN 21 H, Creatinine 4.80 H, Estimated Creat Clear 17, Estimated GFR 13 L*, Est GFR ( Amer) 15 L*, Glucose 155 H, Calcium 7.9 L, Troponin I 0.04 H 02/20/20 20:00: NT-Pro-B Natriuret Pep 520421 H 02/20/20 23:24: Troponin I 0.05 H 02/21/20 02:10: Troponin I 0.04 H 02/21/20 05:33: POC Glucose 161 H 02/21/20 06:09: WBC 4.2 L D, RBC 2.37 L, Hgb 8.3 L, Hct 24.7 L, MCV 104.0 H, MCH 34.8 H, MCHC 33.5, RDW
[2020-02-21 14:55] LABS: CATHL Activated Clotting Time 298 SEC (74-125)
[2020-02-21 16:19] LABS: POC Glucose,Bedside 142 (70-110)
--- NOTE | 2020-02-21 16:31 | ECG_ITS ---
APPROVED REPORT Exam: Resting ECG HR:81 bpm ECG Measurements Heart Rate 81 AXES MD 132 P 49 QRSd 90 QRS 90 QT 426 T 194 QTc 494 <Conclusion> Normal sinus rhythm Rightward axis ST & T wave abnormality, consider anterolateral ischemia Prolonged QT Abnormal ECG
--- NOTE | 2020-02-21 20:00 | PC.NURSE ---
Addendum entered by Kay Roberts RN 02/21/20 20:32: Air removed from tracelet per hospital protocol. No s/s of active bleeding. Once tracelet removed @ 1650 dressing of telfa and tegaderm placed to (R) wrist. Small amount of serosang drainage present. Borders marked. Have remained unchanged since that time. Original Note: Pt arrived to floor @ 1440 by stretcher accompanied by laboratory miller RN's. At 1510 VS assessment BP found to be 157/134, VS taken multiple times to check accuracy. Pt assessed, pt reports SOA and anxiousness - denies angina. GIO [place] notified and at bedside. Orders placed and followed through. BP continued to be monitored after 1 inch nitro paste and PO coreg, hydralazine and lisinopril given. Continued to monitor patient. With no improvement of BP and continued c/o SOA, Michael Tellez called back to bedside. Orders to give 20 mg Labetalol IV x1 now. Orders carried through. Pt's BP prior to admin 173/108. BP after administration of med BP is 150/83. Pt still SOA after BP is stable. Spoke w/ Dr. Florez @ 1630, received orders for stat EKG, IVF to be DC'd and 1 mg of Ativan IV x 1, if no relief in 30 min may give another dose of 1 mg Ativan IV once. Orders followed through. After admin of 1 mg Ativan, pt felt some relief but still felt SOA after 30 min follow up. Another dose of 1 mg Ativan given. Pt rechecked and found to be acutely confused w/ hallucinations. at bedside. Requests that pt stay the night for observation. Received okay for pt to stay the night and be DC'd in AM. Pt currently resting in bed w/ bed alarm in place. Report given to Anne Laguerre RN
[2020-02-21 20:30] LABS: POC Glucose,Bedside 227 (70-110)
[2020-02-22] VITALS: BP 108/69; PULSE 71; PULSE 76; RESP 20; TEMP 36.6; O2SAT 98
[2020-02-22 02:00] VITALS: BP 151/66; PULSE 74; RESP 16; O2SAT 99
[2020-02-22 04:00] VITALS: BP 123/82; PULSE 74; PULSE 84; RESP 16; TEMP 36.9; O2SAT 98
--- NOTE | 2020-02-22 04:48 | PC.NURSE ---
shift assessment, received report from offgoing day shift nurse that patient became disoriented after receiving ativan. initial assessment patient was unsteady on feet and disoriented to place, time and situation. as the shift has progressed patient has become oriented x 4 and steady on his feet. scant amount of ss drainage on right radial cath site present, site soft to touch, pulses +2. patients has remained on 2 l nc with o2 sats in the high 90s, has had no further complaints of soa. no ectopy noted on gambling monitor.
[2020-02-22 05:56] VITALS: BMI 19.8
--- NOTE | 2020-02-22 05:57 | PC.NURSE ---
patient resting on r/a with sats sustaining mid 90s.
[2020-02-22 06:00] VITALS: BP 130/74; PULSE 80; RESP 18; O2SAT 96
--- NOTE | 2020-02-22 06:12 | PC.NURSE ---
GIO HALE NOTIFIED OF CONSULT.
[2020-02-22 06:25] LABS: POC Glucose,Bedside 258 (70-110)
--- NOTE | 2020-02-22 07:58 | HMH.PNCARD ---
Subjective Date: 02/22/20 Time: 07:58 Principal diagnosis: NSTEMI Interval history: 59-year-old white male sitting at bedside eating breakfast in no acute distress. States he feels much better after coronary stenting yesterday. Patient did have an episode of shortness of breath with tachypnea after returning to his room. Blood pressure was noted to be greater than 200 over greater than 100. Home medications were restarted along with a single dose of labetalol and a one-time nitroglycerin paste. Blood pressure did significantly improve and patient had no further chest pain or shortness of breath overnight. He is anxious to be discharged so he can make his dialysis appointment today. Exam Vital signs and Labs for Last 24 Hours: Temp Pulse Resp BP Pulse Ox 98.4 F 80 18 130/74 96 02/22/20 04:00 02/22/20 06:00 02/22/20 06:00 02/22/20 06:00 02/22/20 06:00 Laboratory Results - last 24 hr 02/21/20 06:09: SARS-CoV-2 IgG Ab (Rapid) Negative, SARS-CoV-2 IgM Ab (Rapid) Negative 02/21/20 09:12: Chlamy pneumoniae PCR Not detected, Adenovirus (PCR) Not detected, B. pertussis DNA (PCR) Not detected, Coronavirus OC43 (PCR) Not detected, Coronavirus HKU1 (PCR) Not detected, Coronavirus 229E (PCR) Not detected, COVID-19 PCR Not detected, Coronavirus NL63 (PCR) Not detected, Human Metapneumovir PCR Not detected, Influenza A (H1) PCR Not detected, Influ A (H1N1/09) PCR Not detected, Influenza A (H3) PCR Not detected, Influenza Type A (PCR) Not detected, Influenza Type B (PCR) Not detected, M. pneumoniae (PCR) Not detected, Parainfluenza 1 (PCR) Not detected, Parainfluenza 2 (PCR) Not detected, Parainfluenza 3 (PCR) Not detected, Parainfluenza 4 (PCR) Not detected, RSV (PCR) Not detected, Entero/Rhino (PCR) Not detected 02/21/20 11:28: POC Glucose 135 H 02/21/20 12:31: Activated Clotting Time 298 H* 02/21/20 16:03: POC Glucose 142 H 02/21/20 20:22: POC Glucose 227 H 02/22/20 06:06: POC Glucose 258 H I & O for Last 24 hours: Intake & Output 02/19/20 02/20/20 02/21/20 02/22/20 11:59 11:59 11:59 11:59 Intake Total 127 / 127 450 / 450 Balance 127 / 127 450 / 450 Weight 146 lb 6 oz 150 lb - *Routine HEENT Exam Head: Present: normocephalic Eye: Present: EOMI, PERRL ENT: Present: mucous membranes moist - *Routine Respiratory Exam Present: decreased breath sounds, rhonchi. Absent: accessory muscle use, rales, wheezes - *Routine Cardiovascular Exam Present: RRR. Absent: murmur, gallop, rubs - *Routine Extremities Exam Absent: edema, calf tenderness - *Routine Neurological Exam Present: alert, oriented X3, moving all extremities Progress Note: A&P (1) NSTEMI (non-ST elevated myocardial infarction) Status: Acute Current Visit: Yes (2) Diabetes mellitus, insulin dependent (IDDM), uncontrolled Status: Acute Current Visit: Yes (3) ESRD (end stage renal disease) on dialysis Status: Acute Current Visit: Yes (4) Anemia Status: Acute Current Visit: No (5) COPD (chronic obstructive pulmonary disease) Status: Acute Current Visit: No (6) Ex-smoker for less than 1 year Status: Acute Current Visit: Yes (7) Cardiomyopathy Status: Acute Current Visit: Yes (8) Acute on chronic systolic congestive heart failure Status: Acute Current Visit: Yes Assessment and Plan for All Diagnoses:: 1. Non-ST elevation AR with subsequent coronary stenting of the right coronary artery. Recommend aspirin 81 mg daily and Brilinta 90 mg twice daily. Aspirin may be stopped after 1 month 2. End-stage renal disease with hemodialysis 3. Hypertension, controlled on Coreg 25 mg twice daily, hydralazine 25 mg 3 times daily, lisinopril 20 mg daily and amlodipine 10 mg daily 4. Chronic anticoagulation with Eliquis 5 mg twice daily. 5. Hyperlipidemia, continue atorvastatin 80 mg daily 6. Okay for discharge from cardiology standpoint with follow-up in 1 week.
[2020-02-22 08:00] VITALS: BP 149/82; PULSE 70; PULSE 78; PULSE 82; RESP 18; TEMP 36.6; O2SAT 93
[2020-02-22 08:10] LABS: Chloride 97 mmol/L (98-107); Potassium 4.3 mmoL/L (3.5-5.1); Sodium 134 mmol/L (136-145)
[2020-02-22 08:13] LABS: Anion Gap 17.3 mEq/L (5-15); Basophils % 0.4 % (0.1-2.0); Blood Urea Nitrogen 45 mg/dl (9-20); Calcium 7.5 mg/dl (8.4-10.2); Carbon Dioxide 24 mmol/L (22.0-30.0); Creatinine Clearance Estimated 10 mL/min (50-200); Eosinophils # 0.1 K/mm3 (0.0-0.4); Eosinophils % 2.9 % (0.1-12.0); Estimated Glomerular Filt Rate 7 ml/min (>60); GFR (African American) 9 ML/MIN (>60); Glucose 130 mg/dl (74-100); Lymphocytes # 1.1 K/mm3 (0.7-4.5); Lymphocytes % 27.9 % (10-50); Mean Corpuscular HGB Conc 34.2 g/dL (31.8-35.4); Mean Corpuscular Hemoglobin 35.9 pg (27.0-31.2); Monocytes # 0.2 K/mm3 (0.1-1.0); Monocytes % 5.8 % (1.7-9.3); Neutrophils # 2.5 K/mm3 (1.8-7.8); Neutrophils % 62.9 % (37.0-80.0); Platelet Count 125 K/mm3 (142-424); Red Blood Count 2.13 M/mm3 (4.60-6.20); Red Cell Distribution Width 16.4 % (11.5-17.5); White Blood Count 3.9 K/mm3 (4.8-10.8)
[2020-02-22 08:18] LABS: Hematocrit 22.4 % (42.0-52.0); Hemoglobin 7.6 g/dL (14.1-18.0)
--- NOTE | 2020-02-22 10:09 | PC.NURSE ---
prior to discharging pt, verified with roberto spicer that no meds were changed from dc on 02/20. per candice, no meds were changed, ok to proceed with dc
--- NOTE | 2020-02-22 10:11 | PC.NURSE ---
pt refused all meds prior to dc. states that if he takes his am meds prior to dialysis, his bp typically drops and the staff have difficulty getting it back up.
--- NOTE | 2020-02-22 10:37 | HMH.PHAINT ---
DISCHARGE MEDICATIONS-DISCUSSED D/C MEDS WITH PATIENT.
--- NOTE | 2020-02-22 10:37 | HMH.PHACLD ---
Arpan Porter SR has received discharge medication counseling on the following medications: DISCUSSED DISCHARGE MEDICATIONS WITH PATIENT. PATIENT CURRENTLY TAKING BRILINTA 90 MG BID, LISINOPRIL 20 MG DAILY, CARVEDILOL 25 MG BID, ATORVASTATIN 80 MG HS, AND ASPIRIN 81 MG DAILY. MD STOPPED METOPROLOL SUCCINATE 25 MG DAILY AND CHANGED TO CARVEDILOL 25 MG BID. SCRIPTS WERE SENT BY MD TO [facility] FOR NEW/CHANGED MEDICATIONS.
== END 2020-02-22 10:10 | disposition home or self-care (01) | DRG 246 ==
LOC: ER 19:50 → 2ND 02-21 00:53
PROVIDERS: Internal Medicine; Nurse Practitioner Family; Admitting Provider Emergency Medicine; Emergency Provider Emergency Medicine; PCP Physician Assistant; Visit Provider Emergency Medicine
PROC: 027034Z Dilation of Coronary Artery, One Artery with Drug-eluting Intraluminal Device, Percutaneous Approach (ICD-10-PCS; principal; 2020-02-21 13:00)
DX: I21.4 Non-ST elevation (NSTEMI) myocardial infarction (principal); I50.23 Acute on chronic systolic (congestive) heart failure; N18.6 End stage renal disease; I13.2 Hypertensive heart and chronic kidney disease with heart failure and with stage 5 chronic kidney disease, or end stage renal disease; I42.9 Cardiomyopathy, unspecified; Z99.2 Dependence on renal dialysis; Z72.0 Tobacco use; E11.22 Type 2 diabetes mellitus with diabetic chronic kidney disease; E11.65 Type 2 diabetes mellitus with hyperglycemia; Z79.4 Long term (current) use of insulin; I25.10 Atherosclerotic heart disease of native coronary artery without angina pectoris; Z79.01 Long term (current) use of anticoagulants; Z79.51 Long term (current) use of inhaled steroids; Z79.899 Other long term (current) drug therapy
CPT/HCPCS: 36415; 71045; 71250; 80048; 80061; 82962; 83735; 83880; 84484; 85025; 85347; 86328; 87581; 87633; 87798; 92928; 93005; 93306; 93458; 99152; 99284; C1725; C1769; C1875; C9600; J1644; Q9967

== ENCOUNTER 2020-03-20 08:56 | Outpatient (RCR) | payer BC, MEDICARE, SELFPAY | END 2021-01-22 13:17 | disposition home or self-care (01) | LOC: PT 08:56 | PROVIDERS: Visit Provider Internal Medicine | DX: Z95.5 Presence of coronary angioplasty implant and graft (principal) ==

== ENCOUNTER 2020-03-22 20:01 | Emergency (ER) | payer BC, MEDICARE, SELFPAY ==
[2020-03-22] VITALS (7 sets, daily range): BP systolic 131–149; BP diastolic 59–95; PULSE 91–99; RESP 18–30; TEMP 36.4; O2SAT 90–98; BMI 13.9
--- NOTE | 2020-03-22 20:07 | ECG_ITS ---
APPROVED REPORT Exam: Resting ECG HR:96 bpm ECG Measurements Heart Rate 96 AXES VT 154 P 54 QRSd 94 QRS 81 QT 412 T 179 QTc 520 <Conclusion> Normal sinus rhythm ST & T wave abnormality, consider lateral ischemia Prolonged QT Abnormal ECG Electronically signed by : Fernando Estrella, 03/25/2020 04:52:50
--- NOTE | 2020-03-22 20:19 | XR_ITS ---
PROCEDURE: XR CHEST 2V CLINICAL HISTORY: SOA Shortness of air COMPARISON: XR CHEST PORTABLE from 02/07/2020 XR CHEST PORTABLE from 02/14/2020 XR CHEST PORTABLE from 02/20/2020 CT CHEST WO CON from 02/20/2020 FINDINGS: Normal heart size. There is a right IJ Vas-Cath present with tip in the region the SVC. There is prominence of the interstitium suggesting plasma volume overload/interstitial edema with small bilateral effusions. Bone plate is present along the lower cervical spine IMPRESSION: Prominent interstitium with small bilateral effusions with normal heart size suggesting interstitial edema from plasma volume overload Dictated by: Tommy Powell MD 03/23/2020 08:04 Electronically signed by Tommy Powell MD in [place] 03/23/2020 08:04
--- NOTE | 2020-03-22 20:20 | PC.NURSE ---
attempted to call resp x3 with no answer
[2020-03-22 20:28] LABS: Basophils % 0.5 % (0.1-2.0); Eosinophils # 0.1 K/mm3 (0.0-0.4); Eosinophils % 1.3 % (0.1-12.0); Hematocrit 27.9 % (42.0-52.0); Hemoglobin 9.3 g/dL (14.1-18.0); Lymphocytes # 1.8 K/mm3 (0.7-4.5); Mean Corpuscular HGB Conc 33.3 g/dL (31.8-35.4); Mean Corpuscular Hemoglobin 35.9 pg (27.0-31.2); Mean Platelet Volume 10.2 fl (7.4-10.4); Monocytes # 0.4 K/mm3 (0.1-1.0); Monocytes % 4.8 % (1.7-9.3); Neutrophils # 5.4 K/mm3 (1.8-7.8); Neutrophils % 70.4 % (37.0-80.0); Platelet Count 149 K/mm3 (142-424); Red Blood Count 2.58 M/mm3 (4.60-6.20); Red Cell Distribution Width 18.3 % (11.5-17.5); White Blood Count 7.6 K/mm3 (4.8-10.8)
[2020-03-22 20:32] LABS: Chloride 85 mmol/L (98-107)
--- NOTE | 2020-03-22 20:32 | PC.NURSE ---
pt to rad
--- NOTE | 2020-03-22 20:32 | PC.NURSE ---
notified resp of abg order
[2020-03-22 20:33] LABS: Sodium 129 mmol/L (136-145)
[2020-03-22 20:35] LABS: Alanine Aminotransferase 166 U/L (12-78); Alkaline Phosphatase 133 U/L (38-126); Aspartate Amino Transferase 87 U/L (17-59); Bilirubin,Total 1.2 mg/dl (0.2-1.3); Blood Urea Nitrogen 59 mg/dl (9-20); Creatinine Clearance Estimated 6 mL/min (50-200); Estimated Glomerular Filt Rate 6 ml/min (>60); GFR (African American) 7 ML/MIN (>60)
[2020-03-22 20:36] LABS: Albumin Level 4.8 g/dl (3.5-5.0); Albumin/Globulin Ratio 1.5 (1.1-1.8); Calcium 7.7 mg/dl (8.4-10.2); Carbon Dioxide 21 mmol/L (22.0-30.0); Globulin 3.2 g/dL (1.3-3.2); Glucose 206 mg/dl (74-100)
--- NOTE | 2020-03-22 20:37 | HMH.EDSOB ---
ED Disposition Clinical Impression: Elevated erythrocyte sedimentation rate, ESRD (end stage renal disease) on dialysis, Hyperkalemia CHF (congestive heart failure) Qualifiers: Heart failure type: unspecified Heart failure chronicity: acute on chronic Qualified Code(s): I50.9 - Heart failure, unspecified Disposition: Home, Self-Care Condition on Discharge: Fair Instructions: DI for Shortness of Breath Additional Instructions: do dialysis in am Referrals: Halina Desir PA [Primary Care Provider] - - Critical Care Critical Care Time: No Attestation: On 03/22/20, the high probability of a clinically significant, sudden or life threatening deterioration of the following system(s) required my full and direct attention, intervention and personal management. The time I documented below is in addition to time spent performing reported procedures but includes the following listed in this critical care notation. Medical Decision Making - Medical Records Medical records reviewed: Yes: I reviewed the patient's medical records. - Long Inquiry Pt receiving controlled substance: No Vital Signs: 03/22/20 20:09 03/22/20 20:42 03/22/20 21:18 Temperature 97.5 F L Temperature Source Oral Pulse Rate [Right] 99 H 91 H 94 H Respiratory Rate 98 H 22 18 Blood Pressure [Right Arm] 131/94 H 142/95 H 136/93 H Blood Pressure Mean [Right Arm] 106 110 107 Blood Pressure Source [Right Arm] Automatic Cuff Blood Pressure Position [Right Arm] Sitting 02 Sat by Pulse Oximetry 98 94 L 94 L Oxygen Delivery Method Room Air Nasal Cannula Nasal Cannula Oxygen Flow Rate (LPM) 2 2 03/22/20 21:46 03/22/20 22:23 Temperature Temperature Source Pulse Rate [Right] 95 H 96 H Respiratory Rate 18 18 Blood Pressure [Right Arm] 149/89 H 146/87 H Blood Pressure Mean [Right Arm] 109 106 Blood Pressure Source [Right Arm] Blood Pressure Position [Right Arm] 02 Sat by Pulse Oximetry 90 L 90 L Oxygen Delivery Method Nasal Cannula Nasal Cannula Oxygen Flow Rate (LPM) 2 2 - Lab Data Lab results reviewed: Yes: I reviewed the patient's lab results. Lab Results 03/22/20 20:16: WBC 7.6, RBC 2.58 L, Hgb 9.3 L, Hct 27.9 L, MCV 108.0 H, MCH 35.9 H, MCHC 33.3, RDW 18.3 H, Plt Count 149, MPV 10.2, Neut % (Auto) 70.4, Lymph % (Auto) 23.0, [place] % (Auto) 4.8, Eos % (Auto) 1.3, Baso % (Auto) 0.5, Neut # (Auto) 5.4, Lymph # (Auto) 1.8, [place] # (Auto) 0.4, Eos # (Auto) 0.1, Baso # (Auto) 0.0, ESR > 140 H 03/22/20 20:16: Sodium 129 L, Potassium 6.0 H, Chloride 85 L, Carbon Dioxide 21 L, Anion Gap 29.0 H, BUN 59 H, Creatinine 9.00 H, Estimated Creat Clear 6, Estimated GFR 6 L*, Est GFR ( Amer) 7 L*, Glucose 206 H, Calcium 7.7 L, Total Bilirubin 1.2, AST 87 H, ALT 166 H, Alkaline Phosphatase 133 H, Troponin I 0.07 H, C-Reactive Protein 26.9 H, Total Protein 8.0, Albumin 4.8, Globulin 3.2, Albumin/Globulin Ratio 1.5 03/22/20 20:16: Lactate 3.7 H 03/22/20 20:39: Specimen Source Right radial, O2 % 28%, 2 lpm n/c, ABG pH 7.48 H, ABG pCO2 26.3 L, ABG pO2 103.3 H, ABG HCO3 19.1 L, ABG Total CO2 19.9 L, ABG O2 Saturation 97, ABG Base Excess -4.4 L, Tommy Test Acceptable Result diagrams: 03/22/20 20:16 03/22/20 20:16 Orders (Tests/Meds): ED MEDICATIONS Generic Name Dose Route Start Last Admin Trade Name Freq PRN Reason Stop Dose Admin Sodium Chloride 10 ml 03/22/20 20:53 03/22/20 20:56 Sodium Chloride 0.9% 10ml Vial IV 04/21/20 20:52 10 ml NEEDED PRN Administration to Dilute Lorazepam inj Discontinued Medications Generic Name Dose Route Start Last Admin Trade Name Freq PRN Reason Stop Dose Admin Albuterol Sulfate 2.5 mg 03/22/20 20:46 03/22/20 20:53 Albuterol 0.083% 2.5mg/3ml Neb IH 03/22/20 20:47 2.5 mg ONCE ONE Administration Dextrose 50 ml 03/22/20 20:46 03/22/20 20:53 Dextrose 50% 50ml Syringe IVP 03/22/20 20:47 50 ml ONCE ONE Administration Insulin Human Regular 10 unit 03/22/20
[2020-03-22 20:41] LABS: C-Reactive Protein 26.9 mg/L (0-4)
[2020-03-22 20:42] LABS: Lactic Acid 3.7 mmol/L (0.7-2.1)
--- NOTE | 2020-03-22 20:44 | PC.NURSE ---
Lab called critical results on K+ and Creat Dr Tee Notified
[2020-03-22 20:49] LABS: ABG Base Excess -4.4 mmol/L (-2.4-2.3); ABG HCO3 19.1 mmhg (22.0-26.0); ABG Oxygen Saturation 97 % (90-100); ABG PCO2 26.3 mmhg (35.0-45.0); ABG PH 7.48 mmol/L (7.35-7.45); ABG PO2 103.3 mmhg (80-100); ABG TCO2 19.9 mmhg (23-27)
[2020-03-22 20:49] LABS: Troponin I 0.07 ng/ml (0.00-0.034)
[2020-03-22 20:50] LABS: Allen's Test Acceptable; Source Right Radial
[2020-03-22 21:07] LABS: Erythrocyte Sedimentation Rate > 140 mm/hr (0-20)
== END 2020-03-22 22:52 | disposition home or self-care (01) ==
PROVIDERS: Emergency Provider Emergency Medicine; PCP Physician Assistant
DX: N18.6 End stage renal disease (principal); Z99.2 Dependence on renal dialysis; E11.65 Type 2 diabetes mellitus with hyperglycemia; E87.5 Hyperkalemia; I50.23 Acute on chronic systolic (congestive) heart failure; J44.9 Chronic obstructive pulmonary disease, unspecified; I25.10 Atherosclerotic heart disease of native coronary artery without angina pectoris; I10 Essential (primary) hypertension; E78.5 Hyperlipidemia, unspecified; Z79.899 Other long term (current) drug therapy
CPT/HCPCS: 71046; 80053; 82803; 83605; 84484; 85025; 85651; 86140; 87040; 93005; 96374; 96375; 96376; 99284; J2405

== ENCOUNTER 2020-03-25 12:15 | Emergency (ER) | payer BC, MEDICARE, SELFPAY ==
[2020-03-25 12:21] VITALS: BP 145/85; PULSE 87; RESP 26; TEMP 37; O2SAT 99; BMI 19.8
--- NOTE | 2020-03-25 12:30 | HMH.EDGENADL ---
ED Disposition Clinical Impression: Hyperventilation syndrome, Acute anxiety Dyspnea Qualifiers: Dyspnea type: shortness of breath Qualified Code(s): R06.02 - Shortness of breath Disposition: Home, Self-Care Condition on Discharge: Good Instructions: DI for Anxiety -- Adult, DI for Hyperventilation, DI for Shortness of Breath Additional Instructions: Call Halina tomorrow for follow-up. Additional instructions for SHORTNESS OF BREATH: See your physician as soon as possible for further evaluation. Return immediately if worsening shortness of breath or if vomiting, chest pain, fever, coughing of blood, or passing out. Referrals: Halina Desir PA [Primary Care Provider] - - Critical Care Critical Care Time: No Attestation: On , the high probability of a clinically significant, sudden or life threatening deterioration of the following system(s) required my full and direct attention, intervention and personal management. The time I documented below is in addition to time spent performing reported procedures but includes the following listed in this critical care notation. Medical Decision Making - Medical Records Medical records reviewed: Yes: I reviewed the patient's medical records. - Long Inquiry Pt receiving controlled substance: Yes Long was queried for this patient: No Reason not queried -: Emergent pt cond-no time Risks and benefits of using a controlled substance: were discussed with pt by me Vital Signs: 03/25/20 12:21 Temperature 98.6 F Temperature Source Oral Pulse Rate [Right] 87 Respiratory Rate 26 H Blood Pressure [Right Arm] 145/85 H Blood Pressure Mean [Right Arm] 105 Blood Pressure Source [Right Arm] Automatic Cuff Blood Pressure Position [Right Arm] Sitting 02 Sat by Pulse Oximetry 99 Oxygen Delivery Method Room Air - Lab Data Lab results reviewed: Yes: I reviewed the patient's lab results. Lab Results 03/25/20 12:25: WBC 5.4 D, RBC 2.31 L, Hgb 8.6 L, Hct 25.0 L, MCV 108.4 H, MCH 37.5 H, MCHC 34.6, RDW 18.7 H, Plt Count 135 L, MPV 9.3, Neut % (Auto) 77.2, Lymph % (Auto) 16.5, [place] % (Auto) 5.0, Eos % (Auto) 1.1, Baso % (Auto) 0.2, Neut # (Auto) 4.1, Lymph # (Auto) 0.9, [place] # (Auto) 0.3, Eos # (Auto) 0.1, Baso # (Auto) 0.0 03/25/20 12:25: Sodium 129 L, Potassium 4.5 D, Chloride 89 L, Carbon Dioxide 24, Anion Gap 20.5 H, BUN 45 H, Creatinine 6.60 H D, Estimated Creat Clear 12, Estimated GFR 9 L*, Est GFR ( Amer) 11 L* D, Glucose 205 H, Calcium 6.9 L D, Total Bilirubin 1.0, AST 55 D, ALT 126 H, Alkaline Phosphatase 115, Total Protein 6.8, Albumin 4.0, Globulin 2.8, Albumin/Globulin Ratio 1.4 Result diagrams: 03/25/20 12:25 03/25/20 12:25 Orders (Tests/Meds): ED MEDICATIONS Generic Name Dose Route Start Last Admin Trade Name Freq PRN Reason Stop Dose Admin Sodium Chloride 10 ml 03/25/20 13:14 Sodium Chloride 0.9% 10ml Vial IV 04/24/20 13:13 NEEDED PRN to Dilute Lorazepam inj Discontinued Medications Generic Name Dose Route Start Last Admin Trade Name Freq PRN Reason Stop Dose Admin Lorazepam 1 mg 03/25/20 13:14 03/25/20 13:34 Ativan 2mg/Ml Vial IV 03/25/20 13:15 1 mg ONCE ONE Administration ORDERS Category Date Time Status XR chest 2V Stat Exams 03/25/20 13:13 Taken - Radiology Data #1 Image(s): Chest Image Reviewed: Yes I reviewed the patient's radiology image Small effusions, increased interstitial markings. Stable, no change from 03/22/2020. - ECG Data Tracing #1 EKG interpreted by Abdulkadir Gallegos MD: Rhythm: sinus Rate: 96 [place]: normal Ectopy: none Conduction: normal ST Segment Changes: Nonspecific T Wave Changes: Nonspecific Q Waves: none No evidence of acute ischemia or injury Prior electrocardiagrams reviewed. No change from prior tracings. - Physician Consults Physician Consulted: Kelly Tee Time: 13:15 Reason -: Pt condition Comment/Response: Ativan.
[2020-03-25 13:02] LABS: Chloride 89 mmol/L (98-107); Eosinophils # 0.1 K/mm3 (0.0-0.4); Lymphocytes # 0.9 K/mm3 (0.7-4.5); Mean Corpuscular Volume 108.4 fl (80-94); Mean Platelet Volume 9.3 fl (7.4-10.4); Monocytes # 0.3 K/mm3 (0.1-1.0)
[2020-03-25 13:03] LABS: Potassium 4.5 mmoL/L (3.5-5.1); Sodium 129 mmol/L (136-145)
[2020-03-25 13:05] LABS: Alanine Aminotransferase 126 U/L (12-78); Aspartate Amino Transferase 55 U/L (17-59); Basophils % 0.2 % (0.1-2.0); Blood Urea Nitrogen 45 mg/dl (9-20); Creatinine Clearance Estimated 12 mL/min (50-200); Eosinophils % 1.1 % (0.1-12.0); Estimated Glomerular Filt Rate 9 ml/min (>60); GFR (African American) 11 ML/MIN (>60); Hemoglobin 8.6 g/dL (14.1-18.0); Lymphocytes % 16.5 % (10-50); Mean Corpuscular HGB Conc 34.6 g/dL (31.8-35.4); Mean Corpuscular Hemoglobin 37.5 pg (27.0-31.2); Neutrophils # 4.1 K/mm3 (1.8-7.8); Neutrophils % 77.2 % (37.0-80.0); Platelet Count 135 K/mm3 (142-424); Red Blood Count 2.31 M/mm3 (4.60-6.20); Red Cell Distribution Width 18.7 % (11.5-17.5); White Blood Count 5.4 K/mm3 (4.8-10.8)
[2020-03-25 13:06] LABS: Albumin/Globulin Ratio 1.4 (1.1-1.8); Alkaline Phosphatase 115 U/L (38-126); Anion Gap 20.5 mEq/L (5-15); Carbon Dioxide 24 mmol/L (22.0-30.0); Globulin 2.8 g/dL (1.3-3.2); Total Protein,Serum 6.8 g/dl (6.3-8.2)
--- NOTE | 2020-03-25 13:13 | XR_ITS ---
PROCEDURE: XR CHEST 2V CLINICAL HISTORY: SOA Shortness of air COMPARISON: XR CHEST PORTABLE from 02/14/2020 XR CHEST PORTABLE from 02/20/2020 CT CHEST WO CON from 02/20/2020 XR CHEST 2V from 03/22/2020 FINDINGS: Cardiomegaly with pulmonary venous congestion interstitial edema and small bilateral pleural effusions consistent with CHF/plasma volume overload not significantly changed. Right IJ Vas-Cath remains in good position with tip in the region the SVC No acute bony abnormalities. IMPRESSION: CHF with plasma volume overload and small bilateral effusions Dictated by: Tommy Powell MD 03/25/2020 17:46 Electronically signed by Tommy Powell MD in [place] 03/25/2020 17:46
--- NOTE | 2020-03-25 13:20 | ECG_ITS ---
APPROVED REPORT Exam: Resting ECG HR:96 bpm ECG Measurements Heart Rate 96 AXES DE 138 P 64 QRSd 90 QRS 73 QT 424 T 176 QTc 535 <Conclusion> Normal sinus rhythm Nonspecific ST and T wave abnormality Prolonged QT Abnormal ECG Electronically signed by : Sen Rodríguez, 03/25/2020 17:51:46
[2020-03-25 13:36] LABS: Glucose 205 mg/dl (74-100)
[2020-03-25 13:39] LABS: Calcium 6.9 mg/dl (8.4-10.2)
--- NOTE | 2020-03-25 13:39 | PC.NURSE ---
Lunch try called for pt
[2020-03-25 13:53] VITALS: BP 150/85; PULSE 80; RESP 18; TEMP 36.7; O2SAT 100
== END 2020-03-25 13:56 | disposition home or self-care (01) ==
PROVIDERS: Emergency Provider Emergency Medicine; PCP Physician Assistant
DX: F41.0 Panic disorder [episodic paroxysmal anxiety] (principal); R06.4 Hyperventilation; I25.10 Atherosclerotic heart disease of native coronary artery without angina pectoris; E11.9 Type 2 diabetes mellitus without complications; I10 Essential (primary) hypertension; E78.5 Hyperlipidemia, unspecified; F17.210 Nicotine dependence, cigarettes, uncomplicated; Z99.81 Dependence on supplemental oxygen; Z79.899 Other long term (current) drug therapy
CPT/HCPCS: 71046; 80053; 85025; 93005; 96374; 99283

== ENCOUNTER 2020-04-05 17:25 | Emergency (ER) | payer BC, MEDICARE, SELFPAY ==
--- NOTE | 2020-04-05 17:30 | PC.NURSE ---
Admissions called ED to state they had this pt to come to the ED to be evelatuated. Notified admissions we had no beds. Aircraft Structural Repairer Danna assessed pt, pt is not in distress but appears very anxious, notified to pt we will get him in a room shortly.
[2020-04-05 17:55] VITALS: BP 141/90; PULSE 100; RESP 18; TEMP 36.6; O2SAT 100; BMI 20.9
--- NOTE | 2020-04-05 17:55 | XR_ITS ---
PROCEDURE: XR CHEST PORTABLE CLINICAL HISTORY: short of breath Heart disease, former smoker COMPARISON: XR CHEST PORTABLE from 02/20/2020 CT CHEST WO CON from 02/20/2020 XR CHEST 2V from 03/22/2020 XR CHEST 2V from 03/25/2020 FINDINGS: Cardiomegaly with pulmonary venous congestion consistent with CHF with small bilateral effusions. Right IJ Vas-Cath is present with the tip in the region the SVC. There is some patchy density in the midlung on both sides which could be related to edema or pneumonia. Bone plate is present along the lower cervical spine IMPRESSION: CHF with patchy opacification in the midlung on both sides which may be due to edema or pneumonia with small bilateral effusions Dictated by: Tommy Powell MD 04/05/2020 18:25 Electronically signed by Tommy Powell MD in [place] 04/05/2020 18:25
--- NOTE | 2020-04-05 17:56 | HMH.EDGENADL ---
ED Disposition Clinical Impression: Hyperventilation, ESRD (end stage renal disease), Bilateral pleural effusion Sleep apnea Qualifiers: Sleep apnea type: other type Qualified Code(s): G47.39 - Other sleep apnea Disposition: Home, Self-Care Condition on Discharge: Fair Instructions: DI for Hyperventilation, DI for Pleural Effusion Additional Instructions: You have been evaluated for hyperventilation, shortness of breath. I believe that this is due to fluid overload from kidney disease, pulmonary hypertension, CHF. Please go to dialysis tomorrow morning. You need a sleep study with your primary care physician. Return to the emergency department if you have any new or worsening symptoms. Referrals: Halina Desir PA [Primary Care Provider] - Time of Disposition: 20:01 - Critical Care Critical Care Time: No Attestation: On , the high probability of a clinically significant, sudden or life threatening deterioration of the following system(s) required my full and direct attention, intervention and personal management. The time I documented below is in addition to time spent performing reported procedures but includes the following listed in this critical care notation. Medical Decision Making - Medical Records Medical records reviewed: Yes: I reviewed the patient's medical records. - Long Inquiry Pt receiving controlled substance: No Vital Signs: 04/05/20 17:55 04/05/20 18:26 04/05/20 19:00 Temperature 98 F Temperature Source Oral Pulse Rate [Right] 100 H 96 H 84 Respiratory Rate 18 20 24 Blood Pressure [Right Arm] 141/90 H 141/90 H 144/109 H Blood Pressure Mean [Right Arm] 107 107 120 Blood Pressure Source [Right Arm] Automatic Cuff Manual Cuff/ Auscultation Blood Pressure Position [Right Arm] Sitting 02 Sat by Pulse Oximetry 100 100 99 Oxygen Delivery Method Room Air 04/05/20 19:35 Temperature Temperature Source Pulse Rate [Right] 95 H Respiratory Rate 20 Blood Pressure [Right Arm] 133/96 H Blood Pressure Mean [Right Arm] 108 Blood Pressure Source [Right Arm] Blood Pressure Position [Right Arm] 02 Sat by Pulse Oximetry 97 Oxygen Delivery Method - Lab Data Lab Results 04/05/20 19:10: WBC 8.1, RBC 3.02 L, Hgb 11.1 L, Hct 33.0 L, MCV 109.1 H, MCH 36.6 H, MCHC 33.6, RDW 17.5, Plt Count 112 L, MPV 9.6, Neut % (Auto) 75.3, Lymph % (Auto) 19.8, [place] % (Auto) 3.2, Eos % (Auto) 1.1, Baso % (Auto) 0.7, Neut # (Auto) 6.1, Lymph # (Auto) 1.6, [place] # (Auto) 0.3, Eos # (Auto) 0.1, Baso # (Auto) 0.1 04/05/20 19:10: Sodium 132 L, Potassium 5.4 H, Chloride 89 L, Carbon Dioxide 22, Anion Gap 26.4 H, BUN 40 H, Creatinine 6.80 H, Estimated Creat Clear 10, Estimated GFR 8 L*, Est GFR ( Amer) 10 L*, Glucose 182 H, Calcium 8.0 L, Troponin I 0.05 H Result diagrams: 04/05/20 19:10 04/05/20 19:10 Orders (Tests/Meds): ED MEDICATIONS Discontinued Medications Generic Name Dose Route Start Last Admin Trade Name Nathanael PRN Reason Stop Dose Admin Lorazepam 0.5 mg 04/05/20 17:56 04/05/20 18:06 Ativan 0.5mg Tablet PO 04/05/20 17:57 0.5 mg ONCE ONE Administration Lorazepam 0.5 mg 04/05/20 18:24 04/05/20 18:28 Ativan 2mg/Ml Vial IM 04/05/20 18:25 0.5 mg ONCE ONE Administration ORDERS Category Date Time Status BNP [Brain Natriuretic Peptide] Stat Lab 04/05/20 19:10 Received Troponin I Q3H Lab 04/05/20 21:00 Ordered Troponin I Q3H Lab 04/06/20 00:00 Ordered EKG Request [ECG Request by /Julio] Stat Y 04/05/20 17:55 Ordered - ECG Data Tracing #1 Sinus rhythm with ventricular rate of 100 bpm. QRS 100, QTc 523. Long QT. Nonspecific ST segment changes. No significant ischemia Medical Decision Narrative: In summary this is a 59-year-old male with history of end-stage renal disease and anxiety presenting to the emergency department shortness of breath. Patient is tachypneic on arrival. Oxygen saturations are 99% on room air. Lung exam
[2020-04-05 18:26] VITALS: BP 141/90; PULSE 96; RESP 20; O2SAT 100
[2020-04-05 19:00] VITALS: BP 144/109; PULSE 84; RESP 24; O2SAT 99
--- NOTE | 2020-04-05 19:15 | ECG_ITS ---
APPROVED REPORT Exam: Resting ECG HR:100 bpm ECG Measurements Heart Rate 100 AXES [place] 136 P 32 QRSd 100 QRS 71 QT 406 T 155 QTc 523 <Conclusion> Normal sinus rhythm Nonspecific ST and T wave abnormality Prolonged QT Abnormal ECG Electronically signed by : Fernando Estrella, 04/07/2020 08:07:34
[2020-04-05 19:22] LABS: Basophils # 0.1 K/mm3 (0-0.2); Basophils % 0.7 % (0.1-2.0); Eosinophils # 0.1 K/mm3 (0.0-0.4); Eosinophils % 1.1 % (0.1-12.0); Hemoglobin 11.1 g/dL (14.1-18.0); Lymphocytes # 1.6 K/mm3 (0.7-4.5); Lymphocytes % 19.8 % (10-50); Mean Corpuscular HGB Conc 33.6 g/dL (31.8-35.4); Mean Corpuscular Hemoglobin 36.6 pg (27.0-31.2); Mean Corpuscular Volume 109.1 fl (80-94); Mean Platelet Volume 9.6 fl (7.4-10.4); Monocytes # 0.3 K/mm3 (0.1-1.0); Monocytes % 3.2 % (1.7-9.3); Neutrophils # 6.1 K/mm3 (1.8-7.8); Neutrophils % 75.3 % (37.0-80.0); Platelet Count 112 K/mm3 (142-424); Red Blood Count 3.02 M/mm3 (4.60-6.20); Red Cell Distribution Width 17.5 % (11.5-17.5); White Blood Count 8.1 K/mm3 (4.8-10.8)
[2020-04-05 19:32] LABS: Anion Gap 26.4 mEq/L (5-15); Blood Urea Nitrogen 40 mg/dl (9-20); Carbon Dioxide 22 mmol/L (22.0-30.0); Chloride 89 mmol/L (98-107); Creatinine Clearance Estimated 10 mL/min (50-200); Estimated Glomerular Filt Rate 8 ml/min (>60); GFR (African American) 10 ML/MIN (>60); Glucose 182 mg/dl (74-100); Potassium 5.4 mmoL/L (3.5-5.1); Sodium 132 mmol/L (136-145)
[2020-04-05 19:35] VITALS: BP 133/96; PULSE 95; RESP 20; O2SAT 97
[2020-04-05 19:44] LABS: Troponin I 0.05 ng/ml (0.00-0.034)
--- NOTE | 2020-04-05 20:19 | PC.NURSE ---
LAB STATED ANOTHER 15 MINS ON PT BNP. HAD TO BE DILUTED AGAIN
--- NOTE | 2020-04-05 20:56 | PC.NURSE ---
called lab again about BNP. they stated 20 more minutes it had to be diluted again.
[2020-04-05 21:12] VITALS: BP 133/88; PULSE 90; RESP 18; O2SAT 97
[2020-04-05 21:15] LABS: NT Pro Brain Natriuretic Pep. 361000 pg/mL (0-125)
[2020-04-05 22:06] VITALS: BP 137/80; PULSE 90; RESP 17; TEMP 36.6; O2SAT 97
== END 2020-04-05 22:09 | disposition home or self-care (01) ==
PROVIDERS: Emergency Provider Emergency Medicine; PCP Physician Assistant
DX: N18.6 End stage renal disease (principal); J90 Pleural effusion, not elsewhere classified; I25.10 Atherosclerotic heart disease of native coronary artery without angina pectoris; G47.39 Other sleep apnea; E11.65 Type 2 diabetes mellitus with hyperglycemia; E78.5 Hyperlipidemia, unspecified; I10 Essential (primary) hypertension; J44.9 Chronic obstructive pulmonary disease, unspecified; F17.210 Nicotine dependence, cigarettes, uncomplicated; Z79.899 Other long term (current) drug therapy
CPT/HCPCS: 36415; 71045; 80048; 83880; 84484; 85025; 93005; 96372; 99284

== ENCOUNTER 2020-04-11 01:02 | Emergency (ER) | payer BC, MEDICARE, SELFPAY ==
[2020-04-11 01:13] VITALS: BP 144/81; PULSE 92; RESP 26; TEMP 36.8; O2SAT 99; BMI 19.1
--- NOTE | 2020-04-11 01:22 | XR_ITS ---
PROCEDURE: XR CHEST 2V CLINICAL HISTORY: SOA COMPARISON: XR CHEST 2V from 03/25/2020 XR CHEST PORTABLE from 04/05/2020 FINDINGS: There is cardiomegaly with pulmonary venous congestion and interstitial edema consistent with congestive heart failure. There be be some mild alveolar edema in the right perihilar region versus underlying pneumonia. There is a small left pleural effusion. Bone plate is present along the lower cervical spine. Right IJ Vas-Cath remains place with tip in the region the SVC. IMPRESSION: Overall no significant change in the CHF/plasma volume overload with small left effusion. Dictated by: Tommy Powell MD 04/11/2020 06:48 Electronically signed by Tommy Powell MD in [place] 04/11/2020 06:48
[2020-04-11 01:28] LABS: Basophils % 0.6 % (0.1-2.0); Eosinophils # 0.1 K/mm3 (0.0-0.4); Eosinophils % 1.6 % (0.1-12.0); Hematocrit 28.2 % (42.0-52.0); Hemoglobin 9.7 g/dL (14.1-18.0); Lymphocytes % 17.4 % (10-50); Mean Corpuscular HGB Conc 34.3 g/dL (31.8-35.4); Mean Corpuscular Hemoglobin 36.5 pg (27.0-31.2); Mean Corpuscular Volume 106.4 fl (80-94); Monocytes # 0.3 K/mm3 (0.1-1.0); Monocytes % 4.5 % (1.7-9.3); Neutrophils # 4.3 K/mm3 (1.8-7.8); Neutrophils % 75.9 % (37.0-80.0); Platelet Count 117 K/mm3 (142-424); Red Blood Count 2.65 M/mm3 (4.60-6.20); Red Cell Distribution Width 17.6 % (11.5-17.5); White Blood Count 5.7 K/mm3 (4.8-10.8)
--- NOTE | 2020-04-11 01:33 | HMH.EDGENADL ---
ED Disposition Clinical Impression: Hyperventilation syndrome Disposition: Home, Self-Care Condition on Discharge: Good Instructions: DI for Hyperventilation, DI for Shortness of Breath Additional Instructions: Dialysis today as scheduled. Call Halina Desir this morning to set up a follow-up appointment. Referrals: Halina Desir PA [Primary Care Provider] - - Critical Care Critical Care Time: No Attestation: On 04/11/20, the high probability of a clinically significant, sudden or life threatening deterioration of the following system(s) required my full and direct attention, intervention and personal management. The time I documented below is in addition to time spent performing reported procedures but includes the following listed in this critical care notation. Medical Decision Making - Medical Records Medical records reviewed: Yes: I reviewed the patient's medical records. - Long Inquiry Pt receiving controlled substance: Yes Long was queried for this patient: No Reason not queried -: Emergent pt cond-no time Risks and benefits of using a controlled substance: were discussed with pt by me Vital Signs: 04/11/20 01:13 04/11/20 01:39 04/11/20 02:42 Temperature 98.3 F Temperature Source Oral Pulse Rate [Left] 92 H 89 98 H Respiratory Rate 26 H 18 20 Blood Pressure [Right Arm] 144/81 H 158/86 H 126/75 Blood Pressure Mean [Right Arm] 102 110 92 Blood Pressure Source [Right Arm] Automatic Cuff Blood Pressure Position [Right Arm] Sitting 02 Sat by Pulse Oximetry 99 100 97 Oxygen Delivery Method Room Air Room Air Room Air - Lab Data Lab results reviewed: Yes: I reviewed the patient's lab results. Lab Results 04/11/20 01:20: WBC 5.7, RBC 2.65 L, Hgb 9.7 L, Hct 28.2 L, MCV 106.4 H, MCH 36.5 H, MCHC 34.3, RDW 17.6 H, Plt Count 117 L, MPV 10.0, Neut % (Auto) 75.9, Lymph % (Auto) 17.4, [place] % (Auto) 4.5, Eos % (Auto) 1.6, Baso % (Auto) 0.6, Neut # (Auto) 4.3, Lymph # (Auto) 1.0, [place] # (Auto) 0.3, Eos # (Auto) 0.1, Baso # (Auto) 0.0 07/29/20 01:20: Sodium 132 L, Potassium 3.9, Chloride 92 L, Carbon Dioxide 28, Anion Gap 15.9 H, BUN 39 H, Creatinine 6.10 H, Estimated Creat Clear 12, Estimated GFR 10 L*, Est GFR ( Amer) 12 L*, Glucose 182 H, Calcium 7.1 L, Total Bilirubin 0.7, AST 28, ALT 53, Alkaline Phosphatase 127 H, Total Protein 6.9, Albumin 3.9, Globulin 3.0, Albumin/Globulin Ratio 1.3 Result diagrams: 04/11/20 01:20 04/11/20 01:20 Orders (Tests/Meds): ED MEDICATIONS Generic Name Dose Route Start Last Admin Trade Name Freq PRN Reason Stop Dose Admin Sodium Chloride 10 ml 04/11/20 01:46 Sodium Chloride 0.9% 10ml Vial IV 05/11/20 01:45 NEEDED PRN to Dilute Lorazepam inj Discontinued Medications Generic Name Dose Route Start Last Admin Trade Name Freq PRN Reason Stop Dose Admin Lorazepam 1 mg 04/11/20 01:46 04/11/20 01:48 Ativan 2mg/Ml Vial IV 04/11/20 01:47 1 mg ONCE ONE Administration Morphine Sulfate 2 mg 04/11/20 02:18 04/11/20 02:20 Morphine 4mg/Ml Syringe IV 04/11/20 02:19 2 mg ONCE ONE Administration ORDERS Category Date Time Status Chest XR 2 view (NOT portable) [XR chest 2V] Stat Exams 04/11/20 01:22 Taken - Radiology Data #1 Image(s): Chest Image Reviewed: Yes I reviewed the patient's radiology image Vas-Cath is present. Small left pleural effusion. Small right pleural effusion that was previously present is now improved/resolved. Vascular congestion. Chest x-ray is overall stable to improved. - ECG Data Tracing #1 EKG interpreted by Abdulkadir Gallegos MD: Rhythm: sinus Rate: 86 [place]: normal Ectopy: none Conduction: normal ST Segment Changes: Nonspecific T Wave Changes: Nonspecific Q Waves: none Prior electrocardiagrams reviewed. No change from prior tracings. - Reevaluation(s) Time: 02:15 Reevaluation #1: Looks much more comfortable. Much less anxious. Only mildly
--- NOTE | 2020-04-11 01:35 | ECG_ITS ---
APPROVED REPORT Exam: Resting ECG HR:86 bpm ECG Measurements Heart Rate 86 AXES [place] 140 P 56 QRSd 88 QRS 78 QT 436 T 160 QTc 521 <Conclusion> Normal sinus rhythm Voltage criteria for left ventricular hypertrophy ST & T wave abnormality, consider anterolateral ischemia Prolonged QT Abnormal ECG Electronically signed by : Fernando Estrella, 04/15/2020 21:21:18
[2020-04-11 01:36] LABS: Alanine Aminotransferase 53 U/L (12-78); Albumin Level 3.9 g/dl (3.5-5.0); Albumin/Globulin Ratio 1.3 (1.1-1.8); Alkaline Phosphatase 127 U/L (38-126); Anion Gap 15.9 mEq/L (5-15); Aspartate Amino Transferase 28 U/L (17-59); Bilirubin,Total 0.7 mg/dl (0.2-1.3); Blood Urea Nitrogen 39 mg/dl (9-20); Calcium 7.1 mg/dl (8.4-10.2); Carbon Dioxide 28 mmol/L (22.0-30.0); Chloride 92 mmol/L (98-107); Creatinine Clearance Estimated 12 mL/min (50-200); Estimated Glomerular Filt Rate 10 ml/min (>60); GFR (African American) 12 ML/MIN (>60); Glucose 182 mg/dl (74-100); Potassium 3.9 mmoL/L (3.5-5.1); Sodium 132 mmol/L (136-145); Total Protein,Serum 6.9 g/dl (6.3-8.2)
[2020-04-11 01:39] VITALS: BP 158/86; PULSE 89; RESP 18; O2SAT 100
[2020-04-11 02:42] VITALS: BP 126/75; PULSE 98; RESP 20; O2SAT 97
[2020-04-11 03:01] VITALS: BP 133/98; PULSE 92; RESP 17; TEMP 36.8; O2SAT 96
== END 2020-04-11 03:08 | disposition home or self-care (01) ==
PROVIDERS: Emergency Provider Emergency Medicine; PCP Physician Assistant
DX: R06.4 Hyperventilation (principal); E11.65 Type 2 diabetes mellitus with hyperglycemia; I25.10 Atherosclerotic heart disease of native coronary artery without angina pectoris; Z99.81 Dependence on supplemental oxygen; J44.9 Chronic obstructive pulmonary disease, unspecified; I10 Essential (primary) hypertension; E78.5 Hyperlipidemia, unspecified; N18.6 End stage renal disease; Z99.2 Dependence on renal dialysis
CPT/HCPCS: 71046; 80053; 85025; 93005; 96374; 96375; 99283

== ENCOUNTER 2020-04-11 15:49 | Emergency (ER) | payer BC, MEDICARE, SELFPAY ==
--- NOTE | 2020-04-11 15:45 | ECG_ITS ---
APPROVED REPORT Exam: Resting ECG HR:95 bpm ECG Measurements Heart Rate 95 AXES [place] 132 P 67 QRSd 90 QRS 88 QT 432 T 174 QTc 542 <Conclusion> Normal sinus rhythm ST & T wave abnormality, consider anterior/lateral ischemia Prolonged QT Abnormal ECG Electronically signed by : Sen Rodríguez, 04/13/2020 12:30:49
[2020-04-11 15:52] VITALS: BP 151/108; PULSE 102; RESP 22; O2SAT 94; BMI 19.1
--- NOTE | 2020-04-11 15:56 | HMH.EDCP ---
ED Disposition Clinical Impression: Atypical chest pain, Acute anxiety Disposition: Home, Self-Care Condition on Discharge: Good Instructions: DI for Atypical Chest Pain, DI for Anxiety -- Adult Referrals: Halina Desir PA [Primary Care Provider] - 3 days Austin Florez MD [Staff Physician] - 3 days - Critical Care Critical Care Time: No Attestation: On , the high probability of a clinically significant, sudden or life threatening deterioration of the following system(s) required my full and direct attention, intervention and personal management. The time I documented below is in addition to time spent performing reported procedures but includes the following listed in this critical care notation. Medical Decision Making - Medical Records Medical records reviewed: Yes: I reviewed the patient's medical records. - Long Inquiry Pt receiving controlled substance: No Vital Signs: 04/11/20 15:52 Pulse Rate [Radial] 102 H Respiratory Rate 22 Blood Pressure [Right Arm] 151/108 H Blood Pressure Mean [Right Arm] 122 Blood Pressure Source [Right Arm] Automatic Cuff Blood Pressure Position [Right Arm] Sitting 02 Sat by Pulse Oximetry 94 L Oxygen Delivery Method Room Air - Lab Data Lab results reviewed: Yes: I reviewed the patient's lab results. Lab Results 04/11/20 16:10: WBC 5.0, RBC 2.95 L, Hgb 10.9 L D, Hct 32.9 L, MCV 111.4 H, MCH 37.4 H, MCHC 33.5, RDW 17.5, Plt Count 129 L, MPV 9.0, Neut % (Auto) 77.8, Lymph % (Auto) 15.0, [place] % (Auto) 5.3, Eos % (Auto) 1.2, Baso % (Auto) 0.8, Neut # (Auto) 3.9, Lymph # (Auto) 0.7, [place] # (Auto) 0.3, Eos # (Auto) 0.1, Baso # (Auto) 0.0 04/11/20 16:10: Sodium 133 L, Potassium 3.5, Chloride 88 L, Carbon Dioxide 28, Anion Gap 20.5 H, BUN 17 D, Creatinine 3.50 H D, Estimated Creat Clear 21, Estimated GFR 18 L*, Est GFR ( Amer) 22 L D, Glucose 327 H D, Total Bilirubin 0.7, AST 32, ALT 58, Alkaline Phosphatase 139 H, Troponin I 0.03, Total Protein 7.9, Albumin 4.4 D, Globulin 3.5 H, Albumin/Globulin Ratio 1.3, Lipase 241 Result diagrams: 04/11/20 16:10 04/11/20 16:10 Orders (Tests/Meds): ED MEDICATIONS Discontinued Medications Generic Name Dose Route Start Last Admin Trade Name Nathanael PRN Reason Stop Dose Admin Nitroglycerin 0.4 mg 04/11/20 17:03 Nitrostat 0.4mg Sl Tablet SL 04/11/20 17:04 ONCE ONE ORDERS Category Date Time Status Comprehensive Metabolic Panel Stat Lab 04/11/20 16:10 Results Lipase Stat Lab 04/11/20 16:10 Results Trop I [Troponin I] Stat Lab 04/11/20 16:10 Results Troponin I Q3H Lab 04/11/20 19:00 Ordered Troponin I Q3H Lab 04/11/20 22:00 Ordered - ECG Data Tracing #1 EKG shows sinus rhythm with a rate of 95. There is no acute ST segment elevation or depression. There is some T wave inversion in leads V2, V4 which is consistent with previous EKGs. Normal ME, QRS. Prolonged QTC. EKG interpreted by me. Medical Decision Narrative: Patient here now for the fifth time this month for shortness of breath/chest pain. He exam exam is benign other than borderline tachycardia. This is not unexpected given his anxiety on presentation. He has a history of requesting Ativan and morphine and symptoms improve after this. This would point to anxiety rather than an acute medical condition such as acute coronary syndrome, pulmonary embolus, pneumothorax, flash pulmonary edema, etc. He just had a chest x-ray earlier this morning around 130 with no acute findings. He has clear lung sounds bilaterally and excellent oxygen saturation on room air, low suspicion for acute pneumothorax or other acute pulmonary process. His creatinine, troponin, labs are all baseline if not better than normal. EKG shows no acute changes. Recommend outpatient follow-up with Dr. Florez for further management and evaluation as testing throughout all of his visits in March here has been unremarkable. Chest Pain HPI - General Ch
[2020-04-11 16:25] LABS: Basophils % 0.8 % (0.1-2.0); Eosinophils # 0.1 K/mm3 (0.0-0.4); Eosinophils % 1.2 % (0.1-12.0); Hematocrit 32.9 % (42.0-52.0); Lymphocytes # 0.7 K/mm3 (0.7-4.5); Mean Corpuscular HGB Conc 33.5 g/dL (31.8-35.4); Mean Corpuscular Hemoglobin 37.4 pg (27.0-31.2); Mean Corpuscular Volume 111.4 fl (80-94); Monocytes # 0.3 K/mm3 (0.1-1.0); Monocytes % 5.3 % (1.7-9.3); Neutrophils # 3.9 K/mm3 (1.8-7.8); Neutrophils % 77.8 % (37.0-80.0); Platelet Count 129 K/mm3 (142-424); Red Blood Count 2.95 M/mm3 (4.60-6.20); Red Cell Distribution Width 17.5 % (11.5-17.5)
[2020-04-11 16:34] LABS: Chloride 88 mmol/L (98-107); Potassium 3.5 mmoL/L (3.5-5.1); Sodium 133 mmol/L (136-145)
[2020-04-11 16:37] LABS: Alanine Aminotransferase 58 U/L (12-78); Albumin Level 4.4 g/dl (3.5-5.0); Albumin/Globulin Ratio 1.3 (1.1-1.8); Alkaline Phosphatase 139 U/L (38-126); Anion Gap 20.5 mEq/L (5-15); Aspartate Amino Transferase 32 U/L (17-59); Bilirubin,Total 0.7 mg/dl (0.2-1.3); Blood Urea Nitrogen 17 mg/dl (9-20); Carbon Dioxide 28 mmol/L (22.0-30.0); Creatinine Clearance Estimated 21 mL/min (50-200); Estimated Glomerular Filt Rate 18 ml/min (>60); GFR (African American) 22 ML/MIN (>60); Globulin 3.5 g/dL (1.3-3.2); Glucose 327 mg/dl (74-100); Lipase 241 U/L (23-300); Total Protein,Serum 7.9 g/dl (6.3-8.2)
[2020-04-11 16:49] VITALS: BP 147/90; PULSE 88; RESP 20; O2SAT 99
[2020-04-11 16:49] LABS: Hemoglobin 10.9 g/dL (14.1-18.0); Troponin I 0.03 ng/ml (0.00-0.034)
[2020-04-11 17:05] VITALS: BP 109/71; PULSE 86; RESP 24; O2SAT 98
[2020-04-11 17:22] VITALS: BP 109/71; PULSE 86; RESP 24; TEMP 36.7; O2SAT 98
== END 2020-04-11 17:24 | disposition home or self-care (01) ==
PROVIDERS: Emergency Provider Emergency Medicine; PCP Physician Assistant
DX: R07.89 Other chest pain (principal); E11.65 Type 2 diabetes mellitus with hyperglycemia; I73.9 Peripheral vascular disease, unspecified; I10 Essential (primary) hypertension; E78.5 Hyperlipidemia, unspecified; J44.9 Chronic obstructive pulmonary disease, unspecified; I25.10 Atherosclerotic heart disease of native coronary artery without angina pectoris; N18.6 End stage renal disease; Z79.899 Other long term (current) drug therapy; Z90.49 Acquired absence of other specified parts of digestive tract; Z87.891 Personal history of nicotine dependence; Z99.2 Dependence on renal dialysis; Z99.81 Dependence on supplemental oxygen
CPT/HCPCS: 80053; 83690; 84484; 85025; 93005; 96365; 99282; 99283

== ENCOUNTER → 2020-05-22 09:15 | Outpatient (CLI) | payer BC, MEDICARE, SELFPAY | PROVIDERS: PCP Physician Assistant; Visit Provider Nurse Practitioner Family | DX: R06.00 Dyspnea, unspecified (principal) ==

== ENCOUNTER → 2020-05-29 15:06 | Outpatient (CLI) | payer BC, MEDICARE, SELFPAY ==
[2020-05-29 15:18] LABS: Basophils % 0.6 % (0.1-2.0); Eosinophils # 0.2 K/mm3 (0.0-0.4); Eosinophils % 2.3 % (0.1-12.0); Hematocrit 30.3 % (42.0-52.0); Hemoglobin 9.8 g/dL (14.1-18.0); Lymphocytes # 1.3 K/mm3 (0.7-4.5); Mean Corpuscular HGB Conc 32.5 g/dL (31.8-35.4); Mean Corpuscular Volume 113.8 fl (80-94); Mean Platelet Volume 10.1 fl (7.4-10.4); Monocytes # 0.4 K/mm3 (0.1-1.0); Monocytes % 6.5 % (1.7-9.3); Neutrophils # 4.6 K/mm3 (1.8-7.8); Neutrophils % 70.6 % (37.0-80.0); Platelet Count 145 K/mm3 (142-424); Red Blood Count 2.66 M/mm3 (4.60-6.20); Red Cell Distribution Width 17.9 % (11.5-17.5); White Blood Count 6.6 K/mm3 (4.8-10.8)
[2020-05-29 15:37] LABS: Alanine Aminotransferase 15 U/L (12-78); Albumin Level 4.2 g/dl (3.5-5.0); Albumin/Globulin Ratio 1.3 (1.1-1.8); Alkaline Phosphatase 106 U/L (38-126); Aspartate Amino Transferase 32 U/L (17-59); Bilirubin,Total 0.7 mg/dl (0.2-1.3); Blood Urea Nitrogen 47 mg/dl (9-20); Calcium 7.2 mg/dl (8.4-10.2); Carbon Dioxide 28 mmol/L (22.0-30.0); Chloride 92 mmol/L (98-107); Chol/HDL Ratio 4.1 (1-3.5); Cholesterol 199 mg/dl (140-200); Estimated Glomerular Filt Rate 7 ml/min (>60); GFR (African American) 9 ML/MIN (>60); Globulin 3.2 g/dL (1.3-3.2); Glucose 233 mg/dl (74-100); HDL Cholesterol 49 mg/dl (40-60); Sodium 138 mmol/L (136-145); Total Protein,Serum 7.4 g/dl (6.3-8.2); Triglycerides 196 mg/dl (30-150); VLDL Cholesterol 39 mg/dL (0-40)
[2020-05-29 15:49] LABS: Direct LDL Cholesterol 96.06 mg/dL (100-129)
[2020-05-29 15:54] LABS: 25-OH Vitamin D, Total 49.7 ng/mL (30-100)
[2020-05-29 15:55] LABS: T4 (Thyroxine) 6.4 ug/dl (5.53-11.0)
[2020-05-29 16:08] LABS: Thyroid Stimulating Hormone 1.22 uIU/mL (0.465-4.68)
[2020-05-29 17:56] LABS: Hemoglobin A1C 5.8 % (4.0-6.0)
== END ==
PROVIDERS: Visit Provider Physician Assistant
DX: D64.9 Anemia, unspecified (principal); E11.9 Type 2 diabetes mellitus without complications; E78.5 Hyperlipidemia, unspecified; I10 Essential (primary) hypertension; I25.10 Atherosclerotic heart disease of native coronary artery without angina pectoris; J44.9 Chronic obstructive pulmonary disease, unspecified
CPT/HCPCS: 80053; 80061; 82306; 83036; 84436; 84443; 85025

== ENCOUNTER 2020-06-28 16:00 | Outpatient (RCR) | payer BC, MEDICARE, SELFPAY ==
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
== END 2020-06-28 16:05 | disposition home or self-care (01) ==
LOC: PT 16:00
PROVIDERS: PCP Physician Assistant; Visit Provider Physician Assistant
DX: T25.011A Burn of unspecified degree of right ankle, initial encounter (principal)
CPT/HCPCS: 97161; 97597

== ENCOUNTER → 2020-08-28 10:40 | Outpatient (CLI) | payer BC, MEDICARE, SELFPAY ==
--- NOTE | 2020-08-28 10:46 | XR_ITS ---
PROCEDURE: XR FOOT WT BEARING RT 3V CLINICAL INDICATION: foot pain COMPARISON: No exams were available for comparison FINDINGS: No fracture or dislocation. No lytic or blastic change. There is normal mineralization. There are minimal osteoarthritic changes at the 1st metatarsophalangeal joint. There is mild pes planus. Vascular calcifications are noted. There is a mildly prominent calcaneal spur. Other findings:None. 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
--- NOTE | 2020-08-28 10:46 | XR_ITS ---
PROCEDURE: XR ANKLE WT BEARING LT MIN 3V CLINICAL INDICATION: comparison view COMPARISON: No exams were available for comparison FINDINGS: Minimal hypertrophic changes are present at the tip of the medial malleolus. There is some mild vascular calcification and a small calcaneal spur. IMPRESSION: As above, no acute finding Dictated by: Tommy Powell MD 08/28/2020 15:28 Tommy Powell MD in [facility] 08/28/2020 15:28
--- NOTE | 2020-08-28 10:46 | XR_ITS ---
PROCEDURE: XR ANKLE WT BEARING RT MIN 3V CLINICAL INDICATION: wound Pain and swelling COMPARISON: No exams were available for comparison FINDINGS: There is mild soft tissue swelling medially with a small lucency at this area suggesting and ulceration wound. No fracture or dislocation. No lytic or blastic change. There is generalized vascular calcification. IMPRESSION: Soft tissue swelling with ulceration or wound at the medial malleolar region. Dictated by: Tommy Powell MD 08/28/2020 15:06 Tommy Powell MD in [facility] 08/28/2020 15:06
--- NOTE | 2020-08-28 10:46 | XR_ITS ---
PROCEDURE: XR FOOT WT BEARING LT 3V CLINICAL INDICATION: foot pain COMPARISON: No exams were available for comparison FINDINGS: No fracture or dislocation. No lytic or blastic change. There is normal mineralization. There are mild osteoarthritic changes of the 1st metatarsophalangeal joint. There is borderline pes planus and there is generalized vascular calcification. There is a small calcaneal spur. Other findings:None. IMPRESSION: Mild osteoarthritis 1st MTP joint with borderline pes planus Dictated by: Tommy Powell MD 08/28/2020 15:28 Tommy Powell MD in [facility] 08/28/2020 15:28
== END ==
PROVIDERS: PCP Physician Assistant; Visit Provider Podiatrist
DX: Z51.89 Encounter for other specified aftercare (principal); M25.572 Pain in left ankle and joints of left foot; M25.571 Pain in right ankle and joints of right foot; M79.672 Pain in left foot; M79.671 Pain in right foot
CPT/HCPCS: 73610; 73630

== ENCOUNTER → 2020-08-30 18:00 | Outpatient (CLI) | payer BC, MEDICARE, SELFPAY ==
[2020-08-30 18:47] LABS: Basophils % 0.7 % (0.1-2.0); Eosinophils # 0.1 K/mm3 (0.0-0.4); Eosinophils % 2.4 % (0.1-12.0); Hematocrit 30.9 % (42.0-52.0); Lymphocytes # 1.1 K/mm3 (0.7-4.5); Lymphocytes % 26.5 % (10-50); Mean Corpuscular HGB Conc 32.3 g/dL (31.8-35.4); Mean Corpuscular Hemoglobin 36.1 pg (27.0-31.2); Mean Corpuscular Volume 111.5 fl (80-94); Mean Platelet Volume 9.2 fl (7.4-10.4); Monocytes # 0.2 K/mm3 (0.1-1.0); Monocytes % 5.3 % (1.7-9.3); Neutrophils # 2.6 K/mm3 (1.8-7.8); Neutrophils % 65.2 % (37.0-80.0); Platelet Count 123 K/mm3 (142-424); Red Blood Count 2.77 M/mm3 (4.60-6.20); Red Cell Distribution Width 17.8 % (11.5-17.5)
[2020-08-30 18:53] LABS: Chloride 90 mmol/L (98-107); Sodium 137 mmol/L (136-145)
[2020-08-30 18:56] LABS: Alanine Aminotransferase 20 U/L (12-78); Albumin Level 4.8 g/dl (3.5-5.0); Albumin/Globulin Ratio 1.3 (1.1-1.8); Alkaline Phosphatase 128 U/L (38-126); Aspartate Amino Transferase 26 U/L (17-59); Bilirubin,Total 0.9 mg/dl (0.2-1.3); Blood Urea Nitrogen 27 mg/dl (9-20); Calcium 8.9 mg/dl (8.4-10.2); Carbon Dioxide 30 mmol/L (22.0-30.0); Estimated Glomerular Filt Rate 8 ml/min (>60); GFR (African American) 9 ML/MIN (>60); Globulin 3.8 g/dL (1.3-3.2); Glucose 178 mg/dl (74-100); Total Protein,Serum 8.6 g/dl (6.3-8.2)
[2020-08-30 19:01] LABS: C-Reactive Protein 7.4 mg/L (0-4)
[2020-08-30 19:10] LABS: Erythrocyte Sedimentation Rate 84 mm/hr (0-20)
[2020-08-30 19:37] LABS: Hemoglobin A1C 5.5 % (4.0-6.0)
== END ==
PROVIDERS: Visit Provider Podiatrist
DX: L97.313 Non-pressure chronic ulcer of right ankle with necrosis of muscle (principal); L60.3 Nail dystrophy
CPT/HCPCS: 80053; 83036; 85025; 85651; 86140

== ENCOUNTER → 2020-09-13 13:50 | Outpatient (CLI) | payer BC, MEDICARE, SELFPAY ==
--- NOTE | 2020-09-13 13:51 | CA_ITS ---
APPROVED REPORT EXAM: Comprehensive 2D, Doppler, and color-flow Echocardiogram Lay Up Operator: Kary Mcdonald RVT Ht: 6 ft 1 in Wt: 145lbs BSA: 1.88 BP: 100/54 mmHg Indications: SOA,CM,CHF,STENT,HOME o2,COPD,EX SMOKER,DM,HTN,HLD 2D Dimensions LVOT 1.86 cm (M/F) 1.5-2.5 M-Mode Dimensions RVDd 2.95 cm (0.9-2.6) LA Diam 3.60 cm (1.9-4.0) LVDd 5.26 cm (3.5-5.7) Ao Diam 2.92 cm (2.0-3.7) LVDs 3.97 cm (3.5-5.7) IVSd 0.98 cm (0.6-1.1) PWd 0.57 cm (0.6-1.1) EF (Teich) 48.30% FS 24.50% EDV (Teich) 133.00 mL ESV (Teich) 68.80 mL LV Diastology E Decel Time 153.00 (160-240 msec) E/A Ratio 0.8 MED E' 7.50 (< 7 cm/sec) E'/MED E' Ratio 7.88 (>14) LAT E' 11.60 (<10 cm/sec) E/LAT E' Ratio 5.09 (>14) Mitral Valve MV E Max Rubio. 59.00 (40-130 cm/s) MV A Velocity 78.00 (40-130 cm/s) E/A Ratio 0.76 MV Decel. Time 153.00 (160-240 ms) MV PHT 45.00 ms Pulmonary Valve PV Peak Velocity 86.00 (50-150 cm/s) Tricuspid Valve TR P. Velocity 133.00 cm/s RAP Estimate 10.00 mmHg RVSP 17.10 mmHg Left Ventricle Left atrium is mildly enlarged, left ventricle is normal size, mild concentric left ventricular hypertrophy, visually estimated ejection fraction 50% with no regional wall motion abnormality, grade 1 diastolic dysfunction seen without tissue Doppler evidence of raise left atrial pressure. Right Ventricle Right atrium and right ventricle are mildly enlarged with normal contractility. Aortic Valve Aortic valve is minimally thickened and fibrosed, there is no aortic stenosis or aortic insufficiency. Mitral Valve Mitral valve is grossly normal, there is mild mitral regurgitation. Tricuspid Valve Tricuspid valve grossly normal, there is mild tricuspid regurgitation. Pulmonic Valve Pulmonic valve is poorly visualized. Great Vessels Aortic root is normal size. Pericardium No significant pericardial effusion noted. Conclusion 1. Mild biatrial enlargement, normal left ventricular size, mild concentric left ventricular hypertrophy, visually estimated ejection fraction 50% with no regional wall motion abnormality, grade 1 diastolic dysfunction seen without tissue Doppler evidence of raise left atrial pressure. 2. Mildly enlarged right ventricle with normal contractility. 3. Mild mitral and tricuspid regurgitation. 4. No significant pericardial effusion noted. Electronically signed by : Sanjiv Tate, 09/14/2020 12:18:31
== END ==
PROVIDERS: PCP Physician Assistant; Visit Provider Nurse Practitioner Family
DX: R06.02 Shortness of breath (principal); E11.51 Type 2 diabetes mellitus with diabetic peripheral angiopathy without gangrene; I25.5 Ischemic cardiomyopathy; I25.10 Atherosclerotic heart disease of native coronary artery without angina pectoris; E78.2 Mixed hyperlipidemia; I10 Essential (primary) hypertension; I50.9 Heart failure, unspecified; J44.9 Chronic obstructive pulmonary disease, unspecified; Z72.0 Tobacco use; Z85.118 Personal history of other malignant neoplasm of bronchus and lung
CPT/HCPCS: 93306

== ENCOUNTER 2020-12-10 10:59 | Emergency (ER) | payer BC, MEDICARE, SELFPAY ==
[2020-12-10 11:09] VITALS: BP 119/59; PULSE 95; RESP 16; TEMP 36.6; O2SAT 98; BMI 12.5
--- NOTE | 2020-12-10 11:11 | HMH.EDGENADL ---
ED Disposition Clinical Impression: Swelling of hand Qualifiers: Laterality: left Qualified Code(s): M79.89 - Other specified soft tissue disorders Anemia Qualifiers: Anemia type: due to chronic kidney disease Disposition: Home, Self-Care Condition on Discharge: Good Additional Instructions: Etiology of left hand swelling not entirely known but could be due to lymphedema secondary to recent hospitalization. Use elevation throughout the day to hopefully help alleviate some of the swelling. Please go to your dialysis center tomorrow at 6:15 AM for dialysis as you did receive a contrast bolus here in the ER today. Also, please come to the hospital Thursday morning to have a lab draw to ensure your hemoglobin is stable and there is no need for transfusion. Your PCP, Halina, will receive the results and notify when safe to go home. Return immediately if any worsening arm swelling, weakness, pain, induration/erythema to the dorsum of left hand, weakness, chest pain, shortness of breath, fever/chills, or other new concerning symptoms prior to that time. Referrals: Halina Desir PA [Primary Care Provider] - - Critical Care Critical Care Time: No Attestation: On , the high probability of a clinically significant, sudden or life threatening deterioration of the following system(s) required my full and direct attention, intervention and personal management. The time I documented below is in addition to time spent performing reported procedures but includes the following listed in this critical care notation. Medical Decision Making - Medical Records Medical records reviewed: Yes: I reviewed the patient's medical records. - Long Inquiry Pt receiving controlled substance: No Vital Signs: 12/10/20 11:09 Temperature 97.8 F Temperature Source Oral Pulse Rate [Radial] 95 H Respiratory Rate 16 Blood Pressure [Right Arm] 119/59 L Blood Pressure Mean [Right Arm] 79 Blood Pressure Position [Right Arm] Sitting 02 Sat by Pulse Oximetry 98 Oxygen Delivery Method Room Air - Lab Data Lab Results 12/10/20 11:45: WBC 3.4 L, RBC 2.52 L, Hgb 7.6 L*, Hct 22.5 L*, MCV 89.2, MCH 30.0, MCHC 33.6, RDW 16.5, Plt Count 212, MPV 7.7, Neut % (Auto) 75.6, Lymph % (Auto) 14.7, [place] % (Auto) 5.2, Eos % (Auto) 4.1, Baso % (Auto) 0.5, Neut # (Auto) 2.6, Lymph # (Auto) 0.5 L, [place] # (Auto) 0.2, Eos # (Auto) 0.1, Baso # (Auto) 0.0 12/10/20 11:45: Sodium 139, Potassium 3.5, Chloride 95 L, Carbon Dioxide 36 H, Anion Gap 11.5, BUN 12, Creatinine 3.40 H, Estimated Creat Clear 14, Estimated GFR 19 L*, Est GFR ( Amer) 23 L, Glucose 195 H, Calcium 8.9 Result diagrams: 12/10/20 11:45 12/10/20 11:45 Orders (Tests/Meds): ED MEDICATIONS Discontinued Medications Generic Name Dose Route Start Last Admin Trade Name Freq PRN Reason Stop Dose Admin Iopamidol 100 ml 12/10/20 12:44 12/10/20 12:47 Iopamidol-370 (76%);100ml Bottle IV 12/10/20 12:45 100 ml ONCE ONE Administration Sodium Chloride 50 ml 12/10/20 12:44 12/10/20 12:46 0.9 % Sodium Chloride 50 Ml Vial IV 12/10/20 12:45 40 ml ONCE ONE Administration Medical Decision Narrative: Patient is a 60-year-old male presenting with left hand swelling. On arrival, patient is neurovascularly intact in median, radial, and ulnar nerve distributions and does have a 2+ radial pulse on the left side. There is some edema to dorsum of hand w/o significantly reduced ROM or overlying everythema. Limb ischemia on the differential but no indication for emergent therapy at this time based on exam. Other differential diagnoses do include AV fistula complication versus deep venous thrombosis versus cellulitis versus lymphedema. At this time, I do believe there is indication for CT imaging to ensure no arterial thrombus as well as ultrasound to ensure no deep venous thrombosis. Patient with recent COVID infxn so increased risk of DVT. Patient did receive his dialysis th
--- NOTE | 2020-12-10 11:24 | CT_ITS ---
Procedure: CT ANGIO UE LT CLINICAL HISTORY: hand pain/swell distal to L fistula (r/o thrombus) COMPARISON: No exams were available for comparison TECHNIQUE: IV Contrast: 100ml Isovue 370 Axial images obtained with sagittal and coronal reformats. All CT scans at the facility use one or more dose reduction, viz: automated exposure control, ma/kV adjustment per patient size (including targeted exams where dose is matched to indication, i.e. head), or iterative reconstruction technique. FINDINGS: The left subclavian, axillary, brachial, radial and ulnar arteries are unremarkable without evidence of significant stenosis. The fistula noted in the right upper arm is patent. The subclavian. No evidence of acute arterial occlusion noted. Postsurgical changes are noted at the antecubital fossa consistent with known fistula. Brachiocephalic, left subclavian, axillary and brachial veins veins are patent up to the level of the midforearm. The cephalic vein appears patent. There is poor demonstrable flow noted in the basilic vein below the level of the fistula. There is evidence of extensive collateral circulation noted in the left forearm distal to the antecubital fossa. Vascular occlusion should be considered. Atherosclerotic vascular calcification of the thoracic and abdominal aorta and its branches. There visualized lungs demonstrate centrilobular and paraseptal emphysematous changes. No focal suspicious lesions are noted. Minor bibasal atelectasis. Small pericardial effusion is noted. The spleen is enlarged measuring 17 centimeters in craniocaudal dimension. Atherosclerotic vascular calcification of the visualized abdominal aorta. Aorto bi-iliac endograft is noted. Cholecystectomy is noted. Renal arterial stents are noted. There is femorofemoral bypass graft. Visualized left kidney is atrophic. Multilevel degenerative changes of the visualized thoracic and lumbar spine. IMPRESSION: The left upper extremity fistula is patent. There is poor demonstrable flow noted in the basilic vein distal to the fistular through its entire extent. There is mild edema noted in the left upper extremity distal to the forearm. Occlusion cannot be completely excluded. Venous duplex ultrasound of the left upper extremity should be considered. Splenomegaly. Aortobiiliac endograft and femoro- femoral bypass graft is noted. Dictated by: Shanique Cassidy 12/10/2020 13:24 Shanique Cassidy in [facility] 12/10/2020 13:24
[2020-12-10 12:02] LABS: Chloride 95 mmol/L (98-107); Potassium 3.5 mmoL/L (3.5-5.1); Sodium 139 mmol/L (136-145)
[2020-12-10 12:04] LABS: Basophils % 0.5 % (0.1-2.0); Eosinophils # 0.1 K/mm3 (0.0-0.4); Eosinophils % 4.1 % (0.1-12.0); Lymphocytes # 0.5 K/mm3 (0.7-4.5); Lymphocytes % 14.7 % (10-50); Mean Corpuscular HGB Conc 33.6 g/dL (31.8-35.4); Mean Corpuscular Volume 89.2 fl (80-94); Mean Platelet Volume 7.7 fl (7.4-10.4); Monocytes # 0.2 K/mm3 (0.1-1.0); Monocytes % 5.2 % (1.7-9.3); Neutrophils # 2.6 K/mm3 (1.8-7.8); Neutrophils % 75.6 % (37.0-80.0); Platelet Count 212 K/mm3 (142-424); Red Blood Count 2.52 M/mm3 (4.60-6.20); Red Cell Distribution Width 16.5 % (11.5-17.5); White Blood Count 3.4 K/mm3 (4.8-10.8)
[2020-12-10 12:05] LABS: Anion Gap 11.5 mEq/L (5-15); Blood Urea Nitrogen 12 mg/dl (9-20); Calcium 8.9 mg/dl (8.4-10.2); Carbon Dioxide 36 mmol/L (22.0-30.0); Creatinine Clearance Estimated 14 mL/min (50-200); Estimated Glomerular Filt Rate 19 ml/min (>60); GFR (African American) 23 ML/MIN (>60); Glucose 195 mg/dl (74-100)
[2020-12-10 12:06] LABS: Hematocrit 22.5 % (42.0-52.0); Hemoglobin 7.6 g/dL (14.1-18.0)
--- NOTE | 2020-12-10 12:15 | CA_ITS ---
APPROVED REPORT Left Upper Extremity Venous Study for DVT. Magnetometer Operator: MARY ONEILL Indications Upper Extremity Edema: Left swelling of lt hand, hx- axillaty fistula Vein Imaging IJV (L): Normal phasic flow is seen. Normal flow, augmentation and compression is seen. No evidence of Deep Vein Thrombosis. No abnormalities are demonstrated. SCV (L): Normal phasic flow is seen. Normal flow, augmentation and compression is seen. No evidence of Deep Vein Thrombosis. No abnormalities are demonstrated. Axillary (L): Normal phasic flow is seen. Normal flow, augmentation and compression is seen. No evidence of Deep Vein Thrombosis. No abnormalities are demonstrated. Brachial (L): Normal phasic flow is seen. Normal flow, augmentation and compression is seen. No evidence of Deep Vein Thrombosis. No abnormalities are demonstrated. Basilic (L): Partially Compressible Cephalic (L): Normal phasic flow is seen. Normal flow, augmentation and compression is seen. No evidence of Deep Vein Thrombosis. No abnormalities are demonstrated. Radial (L): Normal phasic flow is seen. Normal flow, augmentation and compression is seen. No evidence of Deep Vein Thrombosis. No abnormalities are demonstrated. Ulnar (L): Normal phasic flow is seen. Normal flow, augmentation and compression is seen. No evidence of Deep Vein Thrombosis. No abnormalities are demonstrated. Findings Slightly limited study due to patient motion. Duplex evaluation of the left upper extremity demonstrates no evidence of thrombus. Partially compressible Left Basilic vein. Left axillary fistula. Patient unable to lie still motion artifact throughout. Conclusion Duplex evaluation of the left upper extremity demonstrates no evidence of thrombus. Partially compressible Left Basilic vein. Left axillary fistula. Patient unable to lie still motion artifact throughout. Electronically signed by : Shanique Cassidy, 12/12/2020 17:22:42
[2020-12-10 14:17] VITALS: BP 145/78; PULSE 102; RESP 18; TEMP 37
== END 2020-12-10 14:21 | disposition home or self-care (01) ==
PROVIDERS: Emergency Provider Emergency Medicine; PCP Physician Assistant
DX: M79.89 Other specified soft tissue disorders (principal); E11.65 Type 2 diabetes mellitus with hyperglycemia; E78.5 Hyperlipidemia, unspecified; I10 Essential (primary) hypertension; Z86.16 Personal history of COVID-19; D64.9 Anemia, unspecified; I50.9 Heart failure, unspecified; J44.9 Chronic obstructive pulmonary disease, unspecified; Z99.81 Dependence on supplemental oxygen; I25.10 Atherosclerotic heart disease of native coronary artery without angina pectoris; Z79.899 Other long term (current) drug therapy; N18.6 End stage renal disease; Z99.2 Dependence on renal dialysis
CPT/HCPCS: 73206; 80048; 85025; 93971; 99282; Q9967

== ENCOUNTER → 2020-12-12 11:39 | Outpatient (CLI) | payer BC, MEDICARE, SELFPAY ==
[2020-12-12 12:05] LABS: Basophils % 0.6 % (0.1-2.0); Eosinophils # 0.1 K/mm3 (0.0-0.4); Eosinophils % 3.9 % (0.1-12.0); Lymphocytes # 0.7 K/mm3 (0.7-4.5); Lymphocytes % 24.8 % (10-50); Mean Corpuscular Hemoglobin 30.6 pg (27.0-31.2); Mean Corpuscular Volume 92.6 fl (80-94); Mean Platelet Volume 7.4 fl (7.4-10.4); Monocytes # 0.2 K/mm3 (0.1-1.0); Monocytes % 5.9 % (1.7-9.3); Neutrophils # 1.9 K/mm3 (1.8-7.8); Neutrophils % 64.8 % (37.0-80.0); Platelet Count 258 K/mm3 (142-424); Red Blood Count 2.44 M/mm3 (4.60-6.20); Red Cell Distribution Width 16.9 % (11.5-17.5)
[2020-12-12 12:29] LABS: Hematocrit 22.6 % (42.0-52.0); Hemoglobin 7.5 g/dL (14.1-18.0)
== END ==
PROVIDERS: Visit Provider Physician Assistant
DX: D63.0 Anemia in neoplastic disease
CPT/HCPCS: 36415; 85025

== ENCOUNTER → 2020-12-14 11:05 | Outpatient (CLI) | payer BC, MEDICARE, SELFPAY ==
[2020-12-14] VITALS (19 sets, daily range): BP systolic 117–191; BP diastolic 72–91; PULSE 68–95; RESP 15–86; TEMP 36.1–37.1; O2SAT 95–99; BMI 19.1
[2020-12-14 11:55] LABS: Hematocrit 22.1 % (42.0-52.0); Hemoglobin 7.4 g/dL (14.1-18.0)
--- NOTE | 2020-12-14 16:40 | PC.NURSE ---
1640-gave report to shahnazrn on [facility] to finish pt. pt in room 213
[2020-12-14 20:16] LABS: Hematocrit 28.1 % (42.0-52.0); Hemoglobin 9.3 g/dL (14.1-18.0)
== END ==
PROVIDERS: PCP Internal Medicine Adolescent Medicine; Visit Provider Internal Medicine
DX: D64.9 Anemia, unspecified (principal)
CPT/HCPCS: 36415; 36430; 85014; 85018; 86850; P9016

== ENCOUNTER → 2020-12-27 14:15 | Outpatient (CLI) | payer BC, MEDICARE, SELFPAY ==
[2020-12-27 14:27] LABS: Basophils % 0.8 % (0.1-2.0); Eosinophils # 0.2 K/mm3 (0.0-0.4); Eosinophils % 3.4 % (0.1-12.0); Hematocrit 33.6 % (42.0-52.0); Hemoglobin 10.7 g/dL (14.1-18.0); Lymphocytes # 0.7 K/mm3 (0.7-4.5); Lymphocytes % 16.3 % (10-50); Mean Platelet Volume 7.7 fl (7.4-10.4); Monocytes # 0.3 K/mm3 (0.1-1.0); Monocytes % 5.9 % (1.7-9.3); Neutrophils # 3.2 K/mm3 (1.8-7.8); Neutrophils % 73.6 % (37.0-80.0); Platelet Count 211 K/mm3 (142-424); Red Blood Count 3.46 M/mm3 (4.60-6.20); Red Cell Distribution Width 20.6 % (11.5-17.5); White Blood Count 4.4 K/mm3 (4.8-10.8)
[2020-12-27 14:31] LABS: Alanine Aminotransferase 10 U/L (12-78); Albumin Level 3.5 g/dl (3.5-5.0); Alkaline Phosphatase 101 U/L (38-126); Anion Gap 15.2 mEq/L (5-15); Aspartate Amino Transferase 17 U/L (17-59); Bilirubin,Total 0.7 mg/dl (0.2-1.3); Blood Urea Nitrogen 18 mg/dl (9-20); Carbon Dioxide 31 mmol/L (22.0-30.0); Chloride 91 mmol/L (98-107); Chol/HDL Ratio 4.3 (1-3.5); Cholesterol 138 mg/dl (140-200); Estimated Glomerular Filt Rate 10 ml/min (>60); GFR (African American) 12 ML/MIN (>60); Globulin 3.4 g/dL (1.3-3.2); Glucose 127 mg/dl (74-100); HDL Cholesterol 32 mg/dl (40-60); Potassium 4.2 mmoL/L (3.5-5.1); Sodium 133 mmol/L (136-145); Total Protein,Serum 6.9 g/dl (6.3-8.2); Triglycerides 186 mg/dl (30-150); VLDL Cholesterol 37 mg/dL (0-40)
[2020-12-27 14:39] LABS: Hemoglobin A1C 5.4 % (4.0-6.0)
[2020-12-27 14:42] LABS: Direct LDL Cholesterol 51.64 mg/dL (100-129)
[2020-12-27 14:48] LABS: 25-OH Vitamin D, Total 32.6 ng/mL (30-100)
[2020-12-27 15:02] LABS: Prostate Specific Ag Screen 1.7 ng/ml (0.0-4.0); Thyroid Stimulating Hormone 4.37 uIU/mL (0.465-4.68)
== END ==
PROVIDERS: Visit Provider Physician Assistant
DX: E11.9 Type 2 diabetes mellitus without complications (principal); D64.9 Anemia, unspecified; I25.10 Atherosclerotic heart disease of native coronary artery without angina pectoris; M79.661 Pain in right lower leg; M79.662 Pain in left lower leg; R53.1 Weakness; Z12.5 Encounter for screening for malignant neoplasm of prostate; Z79.899 Other long term (current) drug therapy
CPT/HCPCS: 80053; 80061; 82306; 83036; 84439; 84443; 85025; G0103

== ENCOUNTER 2021-01-15 12:32 | Emergency (ER) | payer BC, MEDICARE, SELFPAY ==
[2021-01-15] VITALS (16 sets, daily range): BP systolic 144–212; BP diastolic 83–119; PULSE 107–177; RESP 29–40; TEMP 38.4–38.9; O2SAT 86–100; BMI 18.6; BMI 23.5
--- NOTE | 2021-01-15 12:30 | ECG_ITS ---
APPROVED REPORT Exam: Resting ECG HR:118 bpm ECG Measurements Heart Rate 118 AXES [place] 134 P 67 QRSd 94 QRS 79 QT 330 T 88 QTc 462 Conclusion Sinus tachycardia with premature atrial complexes with aberrant conduction Nonspecific ST abnormality Abnormal ECG Electronically signed by : Fernando Estrella, 01/16/2021 16:58:46
--- NOTE | 2021-01-15 12:40 | HMH.EDGENADL ---
ED Disposition Clinical Impression: Seizure, Abnormal finding on CT scan CVA (cerebral vascular accident) Qualifiers: CVA mechanism: unspecified Qualified Code(s): I63.9 - Cerebral infarction, unspecified Disposition: Xfer Short-Term Hosp Condition on Discharge: Fair Referrals: Halina Desir PA [Primary Care Provider] - Time of Disposition: 15:11 - Critical Care Critical Care Time: Yes Attestation: On 01/15/21, the high probability of a clinically significant, sudden or life threatening deterioration of the following system(s) required my full and direct attention, intervention and personal management. The time I documented below is in addition to time spent performing reported procedures but includes the following listed in this critical care notation. Total Critical Care Time: 65 Vital system(s) involved:: Central Nervous System My critical care processes included: Assessment & monitoring of V/S, Initial and Re-exams, Data Review/Interpretation, Coordinating Care, Medication Orders and management, Documentation Medical Decision Making - Medical Records Medical records reviewed: Yes: I reviewed the patient's medical records. - Long Inquiry Pt receiving controlled substance: No Vital Signs: 01/15/21 12:29 01/15/21 12:30 01/15/21 12:40 Temperature 101.1 F H Temperature Source Rectal Pulse Rate 147 H 124 H Pulse Rate [Radial] 117 H Respiratory Rate 40 H 29 H 33 H Blood Pressure 212/119 H 173/108 H Blood Pressure [Right Arm] 197/102 H Blood Pressure Mean Blood Pressure Mean [Right Arm] 133 Blood Pressure Position [Right Arm] Sitting 02 Sat by Pulse Oximetry 98 100 100 Oxygen Delivery Method Nasal Cannula Nasal Cannula Oxygen Flow Rate (LPM) 2 01/15/21 12:48 01/15/21 12:58 01/15/21 13:03 Temperature Temperature Source Pulse Rate 131 H 127 H 125 H Pulse Rate [Radial] Respiratory Rate 32 H 29 H 31 H Blood Pressure 192/106 H 186/106 H 185/100 H Blood Pressure [Right Arm] Blood Pressure Mean 132 130 Blood Pressure Mean [Right Arm] Blood Pressure Position [Right Arm] 02 Sat by Pulse Oximetry 100 100 86 L Oxygen Delivery Method Nasal Cannula Oxygen Flow Rate (LPM) 2 - Lab Data Lab results reviewed: Yes: I reviewed the patient's lab results. Lab Results 01/15/21 12:30: WBC 2.9 L, RBC 3.45 L, Hgb 11.0 L, Hct 33.7 L, MCV 97.9 H, MCH 31.8 H, MCHC 32.5, RDW 19.2 H, Plt Count 163, MPV 7.9, Neut % (Auto) 81.6 H, Lymph % (Auto) 13.6, [place] % (Auto) 3.6, Eos % (Auto) 0.4, Baso % (Auto) 0.9, Neut # (Auto) 2.4, Lymph # (Auto) 0.4 L, [place] # (Auto) 0.1, Eos # (Auto) 0.0, Baso # (Auto) 0.0 01/15/21 12:30: Sodium 132 L, Potassium 3.5, Chloride 93 L, Carbon Dioxide 23, Anion Gap 19.5 H, BUN 13, Creatinine 6.30 H, Estimated Creat Clear 12, Estimated GFR 9 L*, Est GFR ( Amer) 11 L*, Glucose 186 H, Calcium 8.8, Total Bilirubin 0.9, AST 26, ALT 29, Alkaline Phosphatase 116, Total Protein 7.3, Albumin 3.8, Globulin 3.5 H, Albumin/Globulin Ratio 1.1 01/15/21 12:30: Lactate 6.8 H 01/15/21 12:38: VBG pH 7.43 H, VBG pCO2 33.9 L, VBG pO2 71.5 H, VBG HCO3 22.1 L, VBG Total CO2 23.1, VBG O2 Saturation 93.8 H, VBG Base Excess -2.2 Result diagrams: 01/15/21 12:30 01/15/21 12:30 Orders (Tests/Meds): ED MEDICATIONS Generic Name Dose Route Start Last Admin Trade Name Freq PRN Reason Stop Dose Admin Lactated Ringer's 1,000 mls @ 250 mls/hr 01/15/21 13:15 01/15/21 14:33 Lactated Ringer's 1000 Ml Bag IV 02/14/21 13:14 250 mls/hr .Q4H KENDY Administration ORDERS Category Date Time Status CT angio head Stat Cat Scan 01/15/21 14:[address] angio neck Stat Cat Scan 01/15/21 14:30 Ordered Diarrhea 23 Panel, PCR Stat Lab 01/15/21 13:00 Received Levetiracetam (Keppra) Stat Lab 01/15/21 12:30 Received Blood Culture Stat Micro 01/15/21 12:30 Received - CT Data CT Scan: Head Time Received: 14:[address] Reviewed: Yes: I have reviewed the patient
[2021-01-15 12:48] LABS: VBG Base Excess -2.2 mmol/L (-2.4-2.3); VBG HCO3 22.1 mmol/L (23-30); VBG Oxygen Saturation 93.8 % (50-70); VBG PCO2 33.9 mmol/L (35-51); VBG PH 7.43 mmol/L (7.31-7.41); VBG PO2 71.5 mmol/L (28-40); VBG Total CO2 23.1 mmol/L (23-27)
--- NOTE | 2021-01-15 12:49 | XR_ITS ---
PROCEDURE: XR CHEST PORTABLE CLINICAL HISTORY: encephalopathy Shortness of air COMPARISON: CT CT CHEST WO CON from 02/20/2020 CR XR CHEST 2V from 03/25/2020 CR XR CHEST PORTABLE from 04/05/2020 CR XR CHEST 2V from 04/11/2020 FINDINGS: There is mild cardiomegaly. There is pulmonary venous congestion. Vague increased density is present in the left midlung and right lower lobe possibly related to pneumonia. There is a bone plate along the lower cervical spine. IMPRESSION: CHF with faint opacification in both lungs which could be due to pneumonia or edema. Dictated by: Tommy Powell MD 01/15/2021 14:40 Tommy Powell MD in [facility] 01/15/2021 14:40
--- NOTE | 2021-01-15 12:49 | CT_ITS ---
PROCEDURE: CT HEAD/BRAIN WO CON CLINICAL INDICATION: encephalopathy Seizures COMPARISON: CT CT HEAD/BRAIN WO CON from 02/14/2020 TECHNIQUE: Axial images obtained. All CT scans at the facility use one or more dose reduction, viz: automated exposure control, ma/kV adjustment per patient size (including targeted exams where dose is matched to indication, i.e. head), or iterative reconstruction technique. FINDINGS: No midline shift, mass effect, intracranial hemorrhage or hydrocephalus evident. Low-density changes are present in the periventricular region consistent with ischemic gliotic change from microvascular disease. Encephalomalacia changes are present in the occipital lobes on both sides. There is a new area of decreased density in the right cerebellar hemisphere. There is also a new area of ill-defined decreased attenuation in the left parietal occipital area.. No acute calvarial abnormality. No sinus air-fluid level or mastoid effusion. IMPRESSION: 1. New areas of decreased attenuation in the right cerebellum and in the left parietal occipital region consistent with infarctions which are age indeterminate and could be acute or subacute. MRI may confirm. 2. Chronic ischemic gliotic changes Dictated by: Tommy Powell MD 01/15/2021 13:47 Tommy Powell MD in [facility] 01/15/2021 13:47
[2021-01-15 12:50] LABS: Basophils % 0.9 % (0.1-2.0); Chloride 93 mmol/L (98-107); Eosinophils % 0.4 % (0.1-12.0); Hematocrit 33.7 % (42.0-52.0); Lymphocytes # 0.4 K/mm3 (0.7-4.5); Lymphocytes % 13.6 % (10-50); Mean Corpuscular HGB Conc 32.5 g/dL (31.8-35.4); Mean Corpuscular Hemoglobin 31.8 pg (27.0-31.2); Mean Corpuscular Volume 97.9 fl (80-94); Mean Platelet Volume 7.9 fl (7.4-10.4); Monocytes # 0.1 K/mm3 (0.1-1.0); Monocytes % 3.6 % (1.7-9.3); Neutrophils # 2.4 K/mm3 (1.8-7.8); Neutrophils % 81.6 % (37.0-80.0); Platelet Count 163 K/mm3 (142-424); Potassium 3.5 mmoL/L (3.5-5.1); Red Blood Count 3.45 M/mm3 (4.60-6.20); Red Cell Distribution Width 19.2 % (11.5-17.5); Sodium 132 mmol/L (136-145); White Blood Count 2.9 K/mm3 (4.8-10.8)
[2021-01-15 12:53] LABS: Alanine Aminotransferase 29 U/L (12-78); Albumin Level 3.8 g/dl (3.5-5.0); Albumin/Globulin Ratio 1.1 (1.1-1.8); Alkaline Phosphatase 116 U/L (38-126); Anion Gap 19.5 mEq/L (5-15); Aspartate Amino Transferase 26 U/L (17-59); Bilirubin,Total 0.9 mg/dl (0.2-1.3); Blood Urea Nitrogen 13 mg/dl (9-20); Calcium 8.8 mg/dl (8.4-10.2); Carbon Dioxide 23 mmol/L (22.0-30.0); Creatinine Clearance Estimated 12 mL/min (50-200); Estimated Glomerular Filt Rate 9 ml/min (>60); GFR (African American) 11 ML/MIN (>60); Globulin 3.5 g/dL (1.3-3.2); Glucose 186 mg/dl (74-100); Total Protein,Serum 7.3 g/dl (6.3-8.2)
[2021-01-15 13:05] LABS: Lactic Acid 6.8 mmol/L (0.7-2.1)
--- NOTE | 2021-01-15 13:05 | PC.NURSE ---
critical lactic acid and creatinine reported to ER at this time
[2021-01-15 13:11] LABS: Adenovirus F 40/41, stool Not Detected (NotDetected); Astrovirus Not Detected (NotDetected); Campylobacter Not Detected (NotDetected); Cryptosporidium Not Detected (NotDetected); Cyclospora Cayetanesis Not Detected (NotDetected); Entamoeba histolytica Not Detected (NotDetected); Enteroaggregative E coli Not Detected (NotDetected); Enteropathogenic E coli Not Detected (NotDetected); Enterotoxigenic E coli Not Detected (NotDetected); Giardia lamblia Not Detected (NotDetected); Norovirus Not Detected (NotDetected); Plesimonas Shigalloides, PCR Not Detected (NotDetected); Rotavirus A Not Detected (NotDetected); Salmonella, PCR Not Detected (NotDetected); Sapovirus Not Detected (NotDetected); Shiga-like toxin E coli Not Detected (NotDetected); Shigella Enterovasive E coli Not Detected (NotDetected); Vibrio Cholerae Not Detected (NotDetected); Vibrio, PCR Not Detected (NotDetected); Yersinia Entercolitica, PCR Not Detected (NotDetected)
--- NOTE | 2021-01-15 13:15 | PC.NURSE ---
pt to ct with nurse on cardiac montior
--- NOTE | 2021-01-15 13:21 | PC.NURSE ---
PT GONE TO CT W/MISHEL HACKETT
--- NOTE | 2021-01-15 13:45 | PC.NURSE ---
pt return from CT
--- NOTE | 2021-01-15 14:30 | CT_ITS ---
Procedure: CT ANGIO NECK CLINICAL HISTORY: possible cva COMPARISON: CT CT ANGIO HEAD from 01/15/2021 TECHNIQUE: IV Contrast: 100ml Isovue 370 Axial images obtained with sagittal and coronal reformats. All CT scans at the facility use one or more dose reduction, viz: automated exposure control, ma/kV adjustment per patient size (including targeted exams where dose is matched to indication, i.e. head), or iterative reconstruction technique. FINDINGS: CTA neck: Unremarkable aortic arch is scattered calcific plaque. No significant stenosis of the great vessels with mild calcific plaque. Right carotid: Calcific plaque at the distal right ICA/right carotid bulb with 20 percent or less stenosis of the proximal ICA. There is tortuosity of the distal right ICA. No significant stenosis.. Calcific plaque is present in the left distal common carotid and carotid bulb with 20 percent or less stenosis of the distal left common carotid. Vertebrals: The left vertebral is dominant. No significant vertebral stenosis. No dissection. Small focus of eccentric calcific plaque is present in the left vertebral just inside the foramen magnum causing approximately 25 percent stenosis. CTA head: There is a mild amount calcific plaque involving the cavernous portions of the ICAs. No aneurysm, dissection, AVM, or major intracranial occlusive process. No enhancing lesions are evident. Low-density changes are once again noted in the right cerebellum with encephalomalacia change in the right occipital area and low-density changes in the left parietal occipital area. IMPRESSION: 1. CTA neck: Scattered calcific plaque with no significant stenotic lesions. No occlusions, aneurysms, or dissections. 2. CTA head: No acute finding. No significant stenosis occlusion is dissections aneurysms or AVMs. Dictated by: Tommy Powell MD 01/15/2021 16:02 Tommy Powell MD in [facility] 01/15/2021 16:02
--- NOTE | 2021-01-15 14:40 | PC.NURSE ---
CT staff Radha called down to ask about pt creatinine r/t CTA orders for pt. ER states he is aware of pt lab work pt r/t pt is on dialysis. States they will be down to get pt.
--- NOTE | 2021-01-15 14:40 | PC.NURSE ---
Called [facility] for Stroke and Seizure transfere. Dr Rodriguez talking to Dr Yolande Brice
--- NOTE | 2021-01-15 14:58 | PC.NURSE ---
per [facility] they are on divert
--- NOTE | 2021-01-15 15:05 | PC.NURSE ---
[facility] in [facility] divert. Calling [facility] for transfer, Dr Rodriguez talking to Dr Gilbert
--- NOTE | 2021-01-15 15:06 | PC.NURSE ---
pt to CT
--- NOTE | 2021-01-15 15:16 | PC.NURSE ---
Dr Rodríguez called from [facility] for Dr Rodriguez for tansfer of pt
--- NOTE | 2021-01-15 15:27 | PC.NURSE ---
pt return from radiology at this time
--- NOTE | 2021-01-15 15:37 | PC.NURSE ---
[facility] DEFERRED. PT UNRESPONSIVE, UNABLE TO FOLLOW COMMANDS.
[2021-01-15 16:04] LABS: Clostridium Difficile A/B, PCR Detected (NotDetected)
--- NOTE | 2021-01-15 16:38 | PC.NURSE ---
[facility] notified of transfer to [facility]
--- NOTE | 2021-01-15 16:40 | PC.NURSE ---
REPORT CALLED TO [facility]
[2021-01-15 16:45] LABS: Reflex Lactic Add Lactic Reflex
[2021-01-18 00:51] LABS: Levetiracetam (Keppra) 20.3 ug/mL (10.0-40.0)
[2021-01-23 14:14] LABS: POC Glucose,Bedside 158 (70-110)
== END 2021-01-15 18:47 | disposition short-term general hospital (02) ==
PROVIDERS: Emergency Provider Family Medicine; PCP Physician Assistant
DX: I63.89 Other cerebral infarction (principal); J44.9 Chronic obstructive pulmonary disease, unspecified; I25.10 Atherosclerotic heart disease of native coronary artery without angina pectoris; I10 Essential (primary) hypertension; E78.5 Hyperlipidemia, unspecified; F17.210 Nicotine dependence, cigarettes, uncomplicated; Z79.899 Other long term (current) drug therapy
CPT/HCPCS: 70450; 70496; 70498; 71045; 80053; 80177; 82803; 82962; 83605; 85025; 87040; 87507; 93005; 96365; 96367; 96375; 99284; J1953; Q9967

== ENCOUNTER → 2021-01-29 10:47 | Outpatient (CLI) | payer BC, MEDICARE, SELFPAY | PROVIDERS: Visit Provider Internal Medicine Nephrology | DX: Z01.818 Encounter for other preprocedural examination (principal); Z20.822 Contact with and (suspected) exposure to COVID-19 | CPT/HCPCS: U0003 ==

== ENCOUNTER 2021-03-04 13:28 | Emergency (ER) | payer BC, MEDICARE, SELFPAY ==
--- NOTE | 2021-03-04 13:27 | ECG_ITS ---
APPROVED REPORT Exam: Resting ECG HR:108 bpm ECG Measurements Heart Rate 108 AXES NM 112 P QRSd 88 QRS 64 QT 380 T 96 QTc 509 Conclusion Sinus tachycardia with premature atrial complexes with aberrant conduction Nonspecific ST abnormality Abnormal ECG Electronically signed by : Fernando Estrella, 03/06/2021 17:40:31
[2021-03-04 13:28] VITALS: BP 176/90; PULSE 106; RESP 32; TEMP 36.8; O2SAT 82; BMI 18.6
--- NOTE | 2021-03-04 13:30 | PC.NURSE ---
NOREPI INCREASED TO 15MCG
--- NOTE | 2021-03-04 13:32 | HMH.EDGENADL ---
ED Disposition Clinical Impression: Acute and chronic respiratory failure with hypoxia Pneumonia Qualifiers: Pneumonia type: due to unspecified organism Laterality: bilateral Lung location: unspecified part of lung Qualified Code(s): J18.9 - Pneumonia, unspecified organism Disposition: Xfer Short-Term Hosp Condition on Discharge: Good Referrals: Halina Desir PA [Primary Care Provider] - Time of Disposition: 16:35 - Critical Care Critical Care Time: No Attestation: On , the high probability of a clinically significant, sudden or life threatening deterioration of the following system(s) required my full and direct attention, intervention and personal management. The time I documented below is in addition to time spent performing reported procedures but includes the following listed in this critical care notation. Medical Decision Making - Medical Records Medical records reviewed: Yes: I reviewed the patient's medical records. - Long Inquiry Pt receiving controlled substance: No Vital Signs: 03/04/21 13:28 03/04/21 15:00 03/04/21 16:00 Temperature 98.2 F Temperature Source Oral Pulse Rate 89 89 Pulse Rate [Radial] 106 H Respiratory Rate 32 H 30 H 30 H Blood Pressure 167/89 H 175/88 H Blood Pressure [Right Arm] 176/90 H Blood Pressure Mean [Right Arm] 118 Blood Pressure Position Sitting Sitting Blood Pressure Position [Right Arm] Sitting 02 Sat by Pulse Oximetry 82 L 94 L 96 Oxygen Delivery Method Room Air Nasal Cannula Nasal Cannula Oxygen Flow Rate (LPM) 3 3 - Lab Data Lab results reviewed: Yes: I reviewed the patient's lab results. Lab Results 03/04/21 13:41: WBC 3.9 L, RBC 3.02 L, Hgb 9.9 L, Hct 28.5 L, MCV 94.3 H, MCH 32.7 H, MCHC 34.6, RDW 16.4, Plt Count 174, MPV 8.2, Neut % (Auto) 71.0, Lymph % (Auto) 20.5, [place] % (Auto) 5.9, Eos % (Auto) 2.0, Baso % (Auto) 0.6, Neut # (Auto) 2.7, Lymph # (Auto) 0.8, [place] # (Auto) 0.2, Eos # (Auto) 0.1, Baso # (Auto) 0.0 03/04/21 13:41: Sodium 137, Potassium 3.2 L, Chloride 94 L, Carbon Dioxide 31 H, Anion Gap 15.2 H, BUN 15, Creatinine 5.10 H, Estimated Creat Clear 15, Estimated GFR 12 L*, Est GFR ( Amer) 14 L*, Glucose 176 H, Calcium 8.1 L, Troponin I 0.02 03/04/21 15:54: SARS-CoV-2 (PCR) Not detected, Influenza A Untype (PCR) Not detected, Influenza Type B (PCR) Not detected 03/04/21 16:15: Lactate 1.6 Result diagrams: 03/04/21 13:41 03/04/21 13:41 Orders (Tests/Meds): ED MEDICATIONS Generic Name Dose Route Start Last Admin Trade Name Freq PRN Reason Stop Dose Admin Azithromycin 500 mg/ Sodium 250 mls @ 250 mls/hr 03/04/21 16:30 Chloride IV 03/18/21 16:29 1300 KENDY Protocol Cefepime HCl 1 gm/ Sodium 50 mls @ 100 mls/hr 03/05/21 05:00 Chloride IV 03/19/21 04:59 Q12H KENDY Protocol Discontinued Medications Generic Name Dose Route Start Last Admin Trade Name Freq PRN Reason Stop Dose Admin Cefepime HCl 2 gm/ Sodium 100 mls @ 200 mls/hr 03/04/21 16:30 03/04/21 16:28 Chloride IV 03/18/21 16:29 200 mls/hr Q8H KENDY Administration Protocol ORDERS Category Date Time Status Blood Culture Stat Micro 03/04/21 16:15 Received - Radiology Data #1 Image(s): Chest Image Reviewed: Yes I have reviewed radiologist's interpretation Preliminary Findings: Abnormal Bilateral ammonia - ECG Data Tracing #1 Sinus tachycardia, 100 bpm, occasional PACs, no ST elevation or depression, QTC 509. ECG initial impression date: 03/04/21 ECG initial impression time: 13:30 Arrhythmias present: sinus tach Medical Decision Narrative: 60yo M evaluated for chest pain shortness of breath. Patient has mild tachycardia and mild tachypnea on initial evaluation. He wears 2 L baseline at home. Patient denies fever. Patient has coarse crackles bilaterally. Differential diagnosis includes volume overload versus pneumonia. Chest x-ray confirms bilateral pneumonia. The patient wa
--- NOTE | 2021-03-04 13:34 | XR_ITS ---
PROCEDURE: XR CHEST PORTABLE CLINICAL HISTORY: cp Chest pain COMPARISON: CT CT CHEST WO CON from 02/20/2020 CR XR CHEST PORTABLE from 04/05/2020 CR XR CHEST 2V from 04/11/2020 CR XR CHEST PORTABLE from 01/15/2021 FINDINGS: The cardiomediastinal silhouette and pulmonary vascularity are within normal limits. There is faint diffuse increased density in the right upper and right lower lobe and left mid lung consistent with bilateral pneumonia which appears worse on the right. Left pleural effusion has developed since the previous exam. Prior cervical spine surgery IMPRESSION: Bilateral pneumonia with medium-sized left-sided effusion Dictated by: Tommy Powell MD 03/04/2021 15:44 Tommy Powell MD in [facility] 03/04/2021 15:44
[2021-03-04 13:54] LABS: Basophils % 0.6 % (0.1-2.0); Eosinophils # 0.1 K/mm3 (0.0-0.4); Hematocrit 28.5 % (42.0-52.0); Hemoglobin 9.9 g/dL (14.1-18.0); Lymphocytes # 0.8 K/mm3 (0.7-4.5); Lymphocytes % 20.5 % (10-50); Mean Corpuscular HGB Conc 34.6 g/dL (31.8-35.4); Mean Corpuscular Hemoglobin 32.7 pg (27.0-31.2); Mean Corpuscular Volume 94.3 fl (80-94); Mean Platelet Volume 8.2 fl (7.4-10.4); Monocytes # 0.2 K/mm3 (0.1-1.0); Monocytes % 5.9 % (1.7-9.3); Neutrophils # 2.7 K/mm3 (1.8-7.8); Platelet Count 174 K/mm3 (142-424); Red Blood Count 3.02 M/mm3 (4.60-6.20); Red Cell Distribution Width 16.4 % (11.5-17.5); White Blood Count 3.9 K/mm3 (4.8-10.8)
[2021-03-04 13:56] LABS: Chloride 94 mmol/L (98-107); Potassium 3.2 mmoL/L (3.5-5.1); Sodium 137 mmol/L (136-145)
[2021-03-04 13:59] LABS: Anion Gap 15.2 mEq/L (5-15); Blood Urea Nitrogen 15 mg/dl (9-20); Calcium 8.1 mg/dl (8.4-10.2); Carbon Dioxide 31 mmol/L (22.0-30.0); Creatinine Clearance Estimated 15 mL/min (50-200); Estimated Glomerular Filt Rate 12 ml/min (>60); GFR (African American) 14 ML/MIN (>60); Glucose 176 mg/dl (74-100)
[2021-03-04 14:12] LABS: Troponin I 0.02 ng/ml (0.00-0.034)
--- NOTE | 2021-03-04 14:54 | PC.NURSE ---
LAB CALLED WITH [facility].1 DR VELAZQUEZ AWARE
[2021-03-04 15:00] VITALS: BP 167/89; PULSE 89; RESP 30; O2SAT 94
[2021-03-04 16:00] VITALS: BP 175/88; PULSE 89; RESP 30; O2SAT 96
[2021-03-04 16:00] LABS: Coronavirus 19, PCR Not Detected (NotDetected); Influenza A, PCR Not Detected (NotDetected); Influenza B, PCR Not Detected (NotDetected)
--- NOTE | 2021-03-04 16:16 | PC.NURSE ---
PT AND FAMILY UPDATED ON PLAN OF CARE
--- NOTE | 2021-03-04 16:25 | PC.NURSE ---
CALLED [facility] FOR POSSIBLE TRANSFER
[2021-03-04 16:30] VITALS: BP 173/89
[2021-03-04 16:33] LABS: Lactic Acid 1.6 mmol/L (0.7-2.1)
--- NOTE | 2021-03-04 16:44 | PC.NURSE ---
SPOKE WITH [facility]
[2021-03-04 17:00] VITALS: BP 168/85; PULSE 88; RESP 20; O2SAT 96
--- NOTE | 2021-03-04 17:53 | PC.NURSE ---
ATTEMPTED TO CALL REPORT, IT JUST GOT ASSIGNED PLEASE CALL BACK IN 10 MINS
--- NOTE | 2021-03-04 18:25 | PC.NURSE ---
REPORT CALLED TO [facility]
[2021-03-04 19:51] VITALS: BP 125/78; PULSE 73; RESP 16; TEMP 36.9; O2SAT 99
== END 2021-03-04 19:55 | disposition short-term general hospital (02) ==
PROVIDERS: Emergency Provider Family Medicine; PCP Physician Assistant
DX: J96.21 Acute and chronic respiratory failure with hypoxia (principal); J18.9 Pneumonia, unspecified organism; N18.6 End stage renal disease; Z99.2 Dependence on renal dialysis; Z99.81 Dependence on supplemental oxygen; Z20.822 Contact with and (suspected) exposure to COVID-19; I25.10 Atherosclerotic heart disease of native coronary artery without angina pectoris; I50.9 Heart failure, unspecified; I10 Essential (primary) hypertension; E78.5 Hyperlipidemia, unspecified; Z87.891 Personal history of nicotine dependence; Z79.899 Other long term (current) drug therapy
CPT/HCPCS: 71045; 80048; 83605; 84484; 85025; 87040; 87077; 87186; 93005; 96365; 96375; 99283; J0456; U0003